=== PATIENT | male | born 1970 | race Caucasian/White ===

== ENCOUNTER → 2017-03-29 | Outpatient (CLI) | payer BC ==
[~2017-03-29] MED LIST: MULTTAB5 PO; OXYC1TAB3 PO; PRLSR20 PO; TRAM-10 PO
--- NOTE | 2017-03-29 07:23 | DIAGNOSTIC IMAGING REPORT ---
MRI OF THE LUMBAR SPINE WITHOUT CONTRAST CLINICAL HISTORY: Back pain with radiculopathy. COMPARISON STUDY: Lumbar spine MRI December 20, 2012. TECHNIQUE: Utilizing a 1.5 Fartun magnet and dedicated coil, multiplanar, multiecho imaging of the lumbar spine was performed without IV contrast. FINDINGS: For purposes of numbering on this exam, the L5-S1 disc space is assigned to axial image 23 of 25. Alignment of the lumbar spine is anatomic. Vertebral body heights are maintained. There is no suspicious marrow replacement. The conus terminates at the L1-L2 level. Paravertebral soft tissues are unremarkable. There is no intracanalicular mass or fluid collection. Fatty filum terminale is noted. Status post L5-S1 discectomy, posterior compression and bilateral pedicle screw fusion. L1-2: The central canal and neural foramen are patent. L2-3: The central canal and neural foramen are patent. L3-4: The central canal and neural foramen are patent. L4-5: There is disc desiccation. Disc space is preserved. There is a left paracentral disc protrusion with mild inferior subligamentous migration that results in moderate narrowing of the left lateral recess at this level. The central canal and neural foramen are patent. L5-S1: Central canal and neural foramen are patent. IMPRESSION: 1. Left paracentral disc protrusion at L4-L5 that results in moderate narrowing of the left lateral recess. This could be correlated with a left L5 radiculopathy. 2. Status post L5-S1 discectomy and bilateral pedicle screw fusion. 3. Patent central canal. Electronically signed by: Surinder Penny M.D. 03/29/2017 7:22 AM Dictated Date/Time: 03/29/2017 7:14 AM
== END | disposition home or self-care (01) ==
LOC: C.MRI 06:21
PROVIDERS: ATTEND Orthopaedic Surgery Orthopaedic Surgery of the Spine
DX: M51.26 Other intervertebral disc displacement, lumbar region (principal); Z98.1 Arthrodesis status

== ENCOUNTER 2017-06-16 09:15 | Emergency (ER) | payer BC ==
[2017-06-16 09:23] VITALS: TEMP 36.8
[2017-06-16] MEDS ORDERED: DEXAMETHASONE INJ 10 MG in SYRINGE 0 ML IV STA (09:47)
[2017-06-16] MEDS ORDERED: ONDANSETRON INJ 2 MG/ML 2 ML VIAL IV STA (09:47)
[2017-06-16] MEDS ORDERED: DEXAMETHASONE **PF** INJ 10 MG/ML VIAL ONE (10:00)
[2017-06-16] MEDS: MoRPHine SULFATE 4 MG/ML 1 ML CARP\\VIAL IV PRN ×2 (10:04→11:26)
[2017-06-16] MEDS ORDERED: CYCL10TA6 PO (10:09)
[2017-06-16] MEDS ORDERED: GABA-1220 PO (10:09)
[2017-06-16 10:14] LABS: BASO % 0.5 %; BASO ABS # 0.03 K/uL (0-0.2); EOS ABS # 0.23 K/uL (0-0.5); HEMATOCRIT 41.5 % (42-52); HEMOGLOBIN 15.2 g/dL (14.0-18.0); IG# 0.01 K/uL (0.00-0.02); LYMPH % 40.2 %; LYMPH ABS # 2.29 K/uL (1.2-3.4); MEAN CELL VOLUME 87.6 fL (80-100); MEAN CORPUSCULAR HEMOGLOBIN 32.1 pg (25-34); MEAN CORPUSCULAR HGB CONC 36.6 g/dl (32-36); MEAN PLATELET VOLUME 9.4 fL (7.4-10.4); MONO % 7.2 %; MONO ABS # 0.41 K/uL (0.11-0.59); NEUT % 47.9 %; NEUT ABS # 2.73 K/uL (1.4-6.5); PLATELET COUNT 163 K/uL (130-400); RED CELL DISTRIBUTION WIDTH CV 13.2 % (11.5-14.5); RED CELL DISTRIBUTION WIDTH SD 42.2 fL (36.4-46.3)
[2017-06-16 10:29] LABS: BLOOD UREA NITROGEN 17 mg/dl (7-18); CALCIUM 8.4 mg/dl (8.5-10.1); CARBON DIOXIDE 28 mmol/L (21-32); CREATININE 1.12 mg/dl (0.60-1.40); GLUCOSE 110 mg/dl (70-99); POTASSIUM 4.1 mmol/L (3.5-5.1); SODIUM 139 mmol/L (136-145)
--- NOTE | 2017-06-16 11:16 | EMERGENCY ROOM VISIT NOTE ---
History Report prepared by Valerie: An Sandoval Under the Supervision of: Dr. Guanako Aggarwal M.D. First contact with patient: 09:37 Chief Complaint: BACK PAIN Stated Complaint: BACK PAIN, SHOOTING PAIN DOWN LEFT LEG History of Present Illness The patient is a 46 year old male who presents to the Emergency Room with complaints of worsening back pain starting 7 months. The patient states that the pain started after having a long car ride, but he did not ever have an injury to it. He reports that imaging has been done on his spine and showed a herniated disc at L5 and degenerative disc disease. He states that his most recent imaging was an MRI done 3 months ago. The patient states that he has been following with Dr. Mead. He states that they have tried injections and physical therapy with no relief. He reports that he has been on Gabapentin and Cyclobenzaprine and neither have offered any relief. The patient states that the pain is on the left side of his back and down his left leg. He reports that his leg feels numb, weak, and tingly. He reports that intermittently it feels like a needle is being poked into different parts of his leg. He notes that he also feels like something is swollen behind his toes. The patient reports that it has been much worse this week. He states that he has missed two days of work. He reports that he has been having his dress him and help him get in/ out of the tub because he cannot on his own. He states that at 0400 this morning he had pain that was 10/10. He states that he took a muscle relaxer, Gabapentin, and 4 Ibuprofen. He states that his current pain is a 5/10 in severity. The patient states that he has an appointment on July [address] Mead to discuss other options, but he states that he cannot wait that long. The patient complains of pain when straining with one bowel movement. The patient denies taking any steroids and urinary symptoms. Source of History: patient Onset: 7 months ago Position: back Symptom Intensity: 5/10 Quality: other (radiating) Timing: worsening Associated Symptoms: + weakness, No urinary symptoms Note: The patient complains of left leg pain, numbness in his left leg, tingling in his left leg, something feeling swollen behind his toes, and pain when straining with a bowel movement. Review of Systems See HPI for pertinent positives & negatives. A total of 10 systems reviewed and were otherwise negative. Past Medical & Surgical Medical Problems: (1) Degenerative disc disease (2) Herniated disc Family History Cancer Diabetes mellitus FH: heart disease FHx: diabetes mellitus FHx: seizures Seizures Social History Smoking Status: Former Smoker Marital Status: Housing Status: lives with significant other Occupation Status: employed Current/Historical Medications Scheduled Cyclobenzaprine Hcl (Flexeril), 10 MG PO HS Gabapentin (Neurontin), 400 MG PO TID Methylprednisolone (Medrol Dosepak), 1 PKT PO UD Scheduled PRN Omeprazole (Prilosec), 20 MG PO DAILY PRN for Nausea Oxycodone Ir (Roxicodone Ir), 1-2 TAB PO Q4H PRN for Pain Allergies Coded Allergies: No Known Allergies (Verified , 06/16/17) Physical Exam Vital Signs Date Time Temp Pulse Resp B/P (MAP) Pulse Ox O2 Delivery O2 Flow Rate FiO2 06/16/17 12:16 85 18 145/93 96 Room Air 06/16/17 11:26 91 18 171/101 96 Room Air 06/16/17 09:23 36.8 90 20 179/116 98 Room Air Physical Exam GENERAL: Patient is in no acute distress. HEENT: No acute trauma, normocephalic atraumatic, mucous membranes moist, no nasal congestion, no scleral icterus. NECK: No stridor, no adenopathy, no meningismus, trachea is midline. LUNGS: Clear to auscultation bilaterally, no wheeze, no rhonchi, breath sounds equal. HEART: Without murmurs gallops or rubs, regular rate and rhythm. ABDOMEN: Soft, nontender, bowel sounds positive, no hernias, no peritonitis. EXTREMITIES: No cyanosis or edema, full range of motion of all the joints without pain or difficulty, no signs for acute trauma. NEUROLOGIC: Oriented x 3, no acute motor or sensory deficits, no focal weakness. At this time cannot elicit reflexes in either leg at the patella or Achilles. SKIN: No rash, no jaundice, no diaphoresis. Medical Decision & Procedures ER Provider Diagnostic Interpretation: Radiology results as stated below per my review and radiologist interpretation: MRI LUMBAR SPINE W/O CONTRAST CLINICAL HISTORY: Back pain with left leg radiculopathy. Numbness. History of prior surgery. TECHNIQUE: Sagittal and axial T1, T2 and STIR images were obtained. COMPARISON STUDY: March 29, 2017 OBSERVATIONS: The vertebral bodies and posterior elements appear intact. There is no abnormal bony signal present to suggest a marrow replacement process. L1-2: No disc protrusions or extrusions. No evidence of spinal canal or neural foraminal compromise. L2-3: No disc protrusions or extrusions. No evidence of spinal canal or neural foraminal compromise. L3-4: No disc protrusions or extrusions. No evidence of spinal canal or neural foraminal compromise. L4-5: There is a circumferential disc bulge and small left posterior lateral disc protrusion unchanged from the prior study. There is mild transverse spinal canal narrowing. There is no significant foraminal stenosis L5-S1: There are postsurgical changes of a discectomy and interbody fusion. There is posterior pedicle screw fixation with L5 and S1 pedicle screws. There are postlaminectomy changes. There is no recurrent herniation. There is no spinal or foraminal stenosis. The conus medullaris and cauda equina appear normal. IMPRESSION: 1. No significant change in the left posterior lateral disc protrusion at the L4-5 level. Disc material fills the left lateral recess, and may be impinging on the left L5 nerve root 2. Postsurgical changes of an L5-S1 discectomy and bilateral pedicle screw fusion Electronically signed by: Bryn Figueroa M.D. 06/16/2017 11:29 AM Dictated Date/Time: 06/16/2017 11:25 AM Laboratory Results 06/16/17 10:05 Red Blood Count 4.74, Mean Corpuscular Volume 87.6, Mean Corpuscular Hemoglobin 32.1, Mean Corpuscular Hemoglobin Concent 36.6, Mean Platelet Volume 9.4, Neutrophils (%) (Auto) 47.9, Lymphocytes (%) (Auto) 40.2, Monocytes (%) (Auto) 7.2, Eosinophils (%) (Auto) 4.0, Basophils (%) (Auto) 0.5, Neutrophils # (Auto) 2.73, Lymphocytes # (Auto) 2.29, Monocytes # (Auto) 0.41, Eosinophils # (Auto) 0.23, Basophils # (Auto) 0.03 06/16/17 10:05 Test 06/16/17 10:05 06/16/17 10:20 White Blood Count 5.70 K/uL (4.8-10.8) Red Blood Count 4.74 M/uL (4.7-6.1) Hemoglobin 15.2 g/dL (14.0-18.0) Hematocrit 41.5 % (42-52) Mean Corpuscular Volume 87.6 fL (80-100) Mean Corpuscular Hemoglobin 32.1 pg (25-34) Mean Corpuscular Hemoglobin Concent 36.6 g/dl (32-36) Platelet Count 163 K/uL (130-400) Mean Platelet Volume 9.4 fL (7.4-10.4) Neutrophils (%) (Auto) 47.9 % Lymphocytes (%) (Auto) 40.2 % Monocytes (%) (Auto) 7.2 % Eosinophils (%) (Auto) 4.0 % Basophils (%) (Auto) 0.5 % Neutrophils # (Auto) 2.73 K/uL (1.4-6.5) Lymphocytes # (Auto) 2.29 K/uL (1.2-3.4) Monocytes # (Auto) 0.41 K/uL (0.11-0.59) Eosinophils # (Auto) 0.23 K/uL (0-0.5) Basophils # (Auto) 0.03 K/uL (0-0.2) RDW Standard Deviation 42.2 fL (36.4-46.3) RDW Coefficient of Variation 13.2 % (11.5-14.5) Immature Granulocyte % (Auto) 0.2 % Immature Granulocyte # (Auto) 0.01 K/uL (0.00-0.02) Erythrocyte Sedimentation Rate 2 mm/hr (0-14) Anion Gap 4.0 mmol/L (3-11) Estimated GFR () 90.2 Estimated GFR (Non- 77.8 BUN/Creatinine Ratio 15.0 (10-20) Calcium Level 8.4 mg/dl (8.5-10.1) C-Reactive Protein < 0.29 mg/dl (0-0.29) Urine Color YELLOW Urine Appearance CLEAR (CLEAR) Urine pH 6.5 (4.5-7.5) Urine Specific Story 1.013 (1.000-1.030) Urine Protein NEG (NEG) Urine Glucose (UA) NEG (NEG) Urine Ketones NEG (NEG) Urine Occult Blood NEG (NEG) Urine Nitrite NEG (NEG) Urine Bilirubin NEG (NEG) Urine Urobilinogen NEG (NEG) Urine Leukocyte Esterase NEG (NEG) Laboratory results reviewed by me. Medications Administered Medications (Trade) Dose Ordered Sig/Silverio Route Start Time Stop Time Status Last Admin Dose Admin Morphine Sulfate (MoRPHine SULFATE INJ) 4 mg Q15M PRN IV 06/16/17 10:00 06/16/17 12:55 DC 06/16/17 11:26 4 MG Ondansetron HCl (Zofran Inj) 4 mg NOW STAT IV 06/16/17 09:47 06/16/17 09:51 DC 06/16/17 10:04 4 MG Dexamethasone Sodium Phosphate (Dexamethasone Inj Pf) 10 mg STK-MED ONCE .ROUTE 06/16/17 10:00 06/16/17 10:01 DC 06/16/17 10:05 10 MG ED Course 0938: The patient was evaluated in room B11A. A complete history and physical exam was performed. 0944: I discussed the patient's case with Dr. Matias Fong. He would like the patient to have another MRI to compare to the one in March. 0947: Ordered Zofran Inj 4 mg IV, Dexamethasone Sodium Phosphate 10 mg/Syringe 2.5 ml @ 1 mls/min IV. 1000: Ordered Morphine Sulfate 4 mg PRN IV pain. 1133: At this time I had Dr. Matias Fong paged since the patient's MRI was done. 1158: I discussed the patient's case with Dr. Abebe again. He states that the patient is good to go home and he will follow up with him on Monday to possibly schedule his surgery sooner. He states to discharge the patient on Medrol and Oxycodone. 1210: I reevaluated the patient. Discussed results and discharge instructions: He verbalized understanding and agreement. The patient is ready for discharge. Medical Decision Differential diagnoses include herniated disc, infection, abscess, nerve impingement, sciatica, lumbar fracture, failed outpatient treatment. There is no leukocytosis or concerning anemia. No significant electrolyte abnormality or kidney failure. Sed rate and CRP are not elevated. Urinalysis does not show infection. Lumbar MRI shows the same disc herniation on the left as was noted before, no infection or fracture. The patient received IV morphine and IV Zofran, he was given IV Decadron. The patient is feeling improved. He was seen in this ED by Dr. Mead of spine surgery. The patient will be discharged with outpatient follow-up in a few days. He will likely undergo surgery. The patient will be discharged on a Medrol Dosepak, oxycodone for severe pain. If worsening, he can return. [place] Drug Monitoring Program Search Results: no issues identified Medication Reconcilliation Current Medication List: was personally reviewed by me Blood Pressure Screening Patient's blood pressure: Elevated blood pressure Blood pressure disposition: Referred to PCP Consults Time Called: 941 Consulting Physician: Dr. Matias Fong Returned Call: [phone] I discussed the patient's case with Dr. Matias Fong. He would like the patient to have another MRI to compare to the one in March. Additional Consults: Time Called: 1133 Consulted Physician: Dr. Abebe Returned Call: [phone] Additional Comments: I discussed the patient's case with Dr. Abebe again. He states that the patient is good to go home and he will follow up with him on Monday to possibly schedule his surgery sooner. He states to discharge the patient on Decadron and Oxycodone. Impression Primary Impression: Herniated disc Additional Impressions: Lower back pain Sciatica Scribe Attestation The scribe's documentation has been prepared under my direction and personally reviewed by me in its entirety. I confirm that the note above accurately reflects all work, treatment, procedures, and medical decision making performed by me. Departure Information Dispostion Home / Self-Care Prescriptions Oxycodone Ir (Roxicodone Ir) 5 Mg Tab 1-2 TAB PO Q4H Y for Pain, #12 TAB Prov: Guanako Aggarwal M.D. 06/16/17 Methylprednisolone (MEDROL DOSEPAK) 4 Mg Javier 1 PKT PO UD for 6 Days, #1 PKT Prov: Guanako Aggarwal M.D. 06/16/17 Referrals No Doctor, Assigned (PCP) Forms HOME CARE DOCUMENTATION FORM, IMPORTANT VISIT INFORMATION Patient Instructions My [facility] Additional Instructions medrol dose pack as directed--start tomorrow continue the other meds as before may use oxy ir 1-2 tab every 4 hours for severe pain see Dr. Mead as scheduled return for fever or uncontolled pain or worsening symptoms Problem Qualifiers
--- NOTE | 2017-06-16 11:30 | DIAGNOSTIC IMAGING REPORT ---
MRI LUMBAR SPINE W/O CONTRAST CLINICAL HISTORY: Back pain with left leg radiculopathy. Numbness. History of prior surgery. TECHNIQUE: Sagittal and axial T1, T2 and STIR images were obtained. COMPARISON STUDY: March 29, 2017 OBSERVATIONS: The vertebral bodies and posterior elements appear intact. There is no abnormal bony signal present to suggest a marrow replacement process. L1-2: No disc protrusions or extrusions. No evidence of spinal canal or neural foraminal compromise. L2-3: No disc protrusions or extrusions. No evidence of spinal canal or neural foraminal compromise. L3-4: No disc protrusions or extrusions. No evidence of spinal canal or neural foraminal compromise. L4-5: There is a circumferential disc bulge and small left posterior lateral disc protrusion unchanged from the prior study. There is mild transverse spinal canal narrowing. There is no significant foraminal stenosis L5-S1: There are postsurgical changes of a discectomy and interbody fusion. There is posterior pedicle screw fixation with L5 and S1 pedicle screws. There are postlaminectomy changes. There is no recurrent herniation. There is no spinal or foraminal stenosis. The conus medullaris and cauda equina appear normal. IMPRESSION: 1. No significant change in the left posterior lateral disc protrusion at the L4-5 level. Disc material fills the left lateral recess, and may be impinging on the left L5 nerve root 2. Postsurgical changes of an L5-S1 discectomy and bilateral pedicle screw fusion Electronically signed by: Bryn Figueroa M.D. 06/16/2017 11:29 AM Dictated Date/Time: 06/16/2017 11:25 AM
[2017-06-16 12:16] VITALS: BP 145/93; PULSE 85; O2SAT 96
[2017-06-16] MEDS ORDERED: OXYC1TAB3 PO (12:16)
[2017-06-16] MEDS ORDERED: METH4PAK PO (12:16)
== END 2017-06-16 12:51 | disposition home or self-care (01) ==
LOC: C.EDB 09:16
DX: M51.16 Intervertebral disc disorders with radiculopathy, lumbar region (principal); R03.0 Elevated blood-pressure reading, without diagnosis of hypertension; Z79.899 Other long term (current) drug therapy; Z87.891 Personal history of nicotine dependence

== ENCOUNTER 2017-06-22 09:25 | Inpatient (IN) | payer BC ==
--- NOTE | 2017-06-19 15:56 | DIAGNOSTIC IMAGING REPORT ---
CHEST 2 VIEWS ROUTINE CLINICAL HISTORY: Preoperative evaluation. Lumbar spinal stenosis. COMPARISON STUDY: Chest radiograph January 16, 2013. FINDINGS: Lung volumes are normal. No pneumothorax or pleural effusion is noted. There is no consolidation or evidence for pulmonary edema. Cardiomediastinal silhouette is normal. Pulmonary vascularity is normal. Appearance of the chest is unchanged. IMPRESSION: No acute cardiopulmonary findings. Electronically signed by: Surinder Penny M.D. 06/19/2017 3:54 PM Dictated Date/Time: 06/19/2017 3:53 PM
[2017-06-19 16:43] LABS: BASO % 0.2 %; BASO ABS # 0.02 K/uL (0-0.2); EOS % 0.3 %; EOS ABS # 0.04 K/uL (0-0.5); HEMATOCRIT 43.4 % (42-52); HEMOGLOBIN 16.1 g/dL (14.0-18.0); IG# 0.11 K/uL (0.00-0.02); LYMPH % 21.5 %; LYMPH ABS # 2.54 K/uL (1.2-3.4); MEAN CELL VOLUME 88.2 fL (80-100); MEAN CORPUSCULAR HEMOGLOBIN 32.7 pg (25-34); MEAN CORPUSCULAR HGB CONC 37.1 g/dl (32-36); MEAN PLATELET VOLUME 9.6 fL (7.4-10.4); MONO % 8.9 %; MONO ABS # 1.05 K/uL (0.11-0.59); NEUT % 68.2 %; NEUT ABS # 8.03 K/uL (1.4-6.5); PLATELET COUNT 215 K/uL (130-400); RED CELL DISTRIBUTION WIDTH CV 13.4 % (11.5-14.5); RED CELL DISTRIBUTION WIDTH SD 43.3 fL (36.4-46.3); WHITE BLOOD COUNT 11.79 K/uL (4.8-10.8)
[2017-06-19 17:13] LABS: BLOOD UREA NITROGEN 22 mg/dl (7-18); CALCIUM 8.7 mg/dl (8.5-10.1); CARBON DIOXIDE 28 mmol/L (21-32); CREATININE 1.25 mg/dl (0.60-1.40); GLUCOSE 116 mg/dl (70-99); POTASSIUM 3.8 mmol/L (3.5-5.1); SODIUM 138 mmol/L (136-145)
[2017-06-20 11:08] VITALS: BMI 34.0
[2017-06-22] VITALS (9 sets, daily range): BP systolic 132–176; BP diastolic 77–114; PULSE 76–91; TEMP 36.3–36.8; O2SAT 92–99; Ht 175.3 cm; Wt 104.0 kg
[~2017-06-22] VITALS: Ht 175.3 cm; Wt 104.0 kg
[~2017-06-22 09:25] MED LIST changes: +ACETAMINOPHEN 500 MG TAB PO SCH; +CEFAZOLIN 2000MG IV PUSH 15 ML IV SCH; +CYCL10TA6 PO; +CeleBREX 200 MG CAP PO SCH; +DEXAMETHASONE 4 MG TAB PO SCH; +GABA-1220 PO; +GABAPENTIN 900 MG PO SCH; +IBUP-1050 PO; +LACTATED RINGER'S 1000ML 1,000 ML IV SCH; +METH4PAK PO; -MULTTAB5 PO; -PRLSR20 PO; -TRAM-10 PO
[2017-06-22] MEDS ORDERED: MoRPHine SULFATE 10 MG/ML CARP/VIAL IV PRN (10:15)
[2017-06-22] MEDS ORDERED: ATROPINE SULFATE 0.1 MG/ML 5ML SYR IV PRN (10:15)
[2017-06-22] MEDS ORDERED: EpHEDrine SULFATE INJ 50 MG/ML AMP IV PRN (10:15)
[2017-06-22] MEDS ORDERED: ONDANSETRON INJ 2 MG/ML 2 ML VIAL IV PRN ×2 (10:15→13:15)
--- NOTE | 2017-06-22 10:33 | History & Physical Bridge Note ---
H&P Re-Evaluation Bridge Note: I have examined the patient, reviewed the History & Physical and in the interval since the performance of the History & Physical I have noted the following changes of clinical significance: No changes noted
[2017-06-22] MEDS ORDERED: FENTANYL CITRATE INJ 50 MCG/1 ML 2 ML VIAL ONE ×3 (10:35→11:38)
[2017-06-22] MEDS ORDERED: MIDAZOLAM HCL 1 MG/ML 2ML VIAL ONE (10:35)
--- NOTE | 2017-06-22 10:36 | History and Physical ---
History & Physical Date June 22, 2017. Chief Complaint Back and left leg pain History of Present Illness The patient is a 46 year old male with complaints of back and left leg pain Past Medical/Surgical History Medical Problems: (1) Degenerative disc disease (2) Herniated disc Additional History Hepatic Disease: No Endocrine Disorder: No Kidney Disease: No Hypertension: No Heart Disease: No Bleeding Tendencies: No Infectious Diseases: No Allergies Coded Allergies: No Known Allergies (Verified , 06/22/17) Home Medications Scheduled Cyclobenzaprine Hcl (Flexeril), 10 MG PO HS Gabapentin (Neurontin), 400 MG PO TID Methylprednisolone (Medrol Dosepak), 1 PKT PO UD Scheduled PRN Ibuprofen (Advil), 800 MG PO Q6H PRN for Pain Oxycodone Ir (Roxicodone Ir), 1-2 TAB PO Q4H PRN for Pain Physical Examination Skin: warm/dry, no rash Eyes: normal inspection, EOMI, sclerae normal ENT: normal ENT inspection, pharynx normal Head: normocephalic, atraumatic Neck: supple, no adenopathy, trachea midline Respiratory/Chest: lungs clear, normal breath sounds, no respiratory distress Cardiovascular: regular rate, rhythm, no edema, no murmur Abdomen / GI: normal bowel sounds, non tender Back: normal inspection Extremities: normal inspection, normal range of motion Neurologic/Psych: no motor/sensory deficits, alert, normal reflexes, oriented x 3 Diagnosis Spinal stenosis herniated disc pulposus L4-5 Plan of Treatment Removal of instrumentation L5-S1 decompression and fusion L4-5
[2017-06-22] MEDS ORDERED: HYDROmorphone INJ 2 MG/ML SYR/VIAL ONE (11:00)
[2017-06-22] MEDS ORDERED: EpINEphrine INJ 1MG/ML AMP 1 MG/ML AMP ONE (11:02)
[2017-06-22] MEDS ORDERED: BUPIVACAINE 0.5 % 5 MG/1 ML MPF 30ML VIAL ONE (11:02)
[2017-06-22] MEDS ORDERED: BACITRACIN 50000 UNIT VIAL ONE (11:02)
[2017-06-22] MEDS ORDERED: FLOSEAL HEMOSTATIC MATRIX 10ML TOP ONE (13:00)
--- NOTE | 2017-06-22 13:00 | [facility] Operative Report ---
Operative Report Operative Date June 22, 2017. Pre-Operative Diagnosis Spinal stenosis, herniated disc pulposus L4-5 Post-Operative Diagnosis Spinal stenosis, herniated disc pulposus L4-5 Procedure(s) Performed 1. Removal of instrumentation L5-S1. #2 exploration of fusion L5-S1. #3 decompression medial facetectomies foraminotomies L4-5. #4 posterior spinal fusion L4-5. #5 placement posterior instrumentation L4-5. #6 interbody fusion L4-5. #7 placement of titanium 11 x 26 mm cage L4-5. # 8 placement of locally harvested morselized autograft in the posterior lateral gutters. #9 placement of infuse collagen sponge, mass graft in the posterior gutters and ostial amp in the interbody space. Surgeon Dr. Mead Software Controls Engineer Surgeon(s) Malu Glynn PA-C Estimated Blood Loss 100 ml Findings Severe spinal stenosis with herniated nucleus pulposus Specimens Permanent Specimen: A: Explanted Lumbar Hardware Anesthesia Type General Description of Procedure Patient was met with preoperatively case discussed all questions addressed. After informed consent obtained patient was taken to the operative suite underwent intubation and placed in the prone position on the Marcus table on top of the Bharat frame. All bony prominences well-padded eyes inspected to ensure no external pressure placed upon the. This point the lumbar spine was prepped and draped in normal sterile fashion. Sharp dissection with the assistance Bovie cautery was performed down to and exposing the lamina and transverse process of L4 and instrumentation L5-S1 levels bilaterally. Then proceeded remove the hardware at L5-S1 Fusion mass noted to be intact. Then proceeded to perform a complete laminectomy of L4 addressing severe lateral recess and foraminal disease on the left as well as herniated nucleus pulposus. Pedicle screws and placed in L4-L5 bilaterally with the assistance of fluoroscopy and the purposes sabrina placed. Through a transforaminal approach and left complete discectomy was performed endplates created to subcortical bleeding bone and an 11 x 26 mm titanium cage filled with ostial amp bone graft tapped in position. Rods then compressed locked in final position bilaterally. The transverse processes of L4-L5 burred to subcortical bleeding bone. Infuse collagen sponge mesh graft and local autograft placed in the posterior gutters. 15 round KRISHNA drain inserted. Incision was then closed with 1 Vicryl fascia 2-0 Vicryl subtends a 4 Monocryl for fashion closure Steri-Strips sterile dressings placed. Patient will continue PACU stable condition. Please note Malu Martins present throughout the entire procedure involved in patient positioning complex portions of the surgery and fashion closure. I attest to the content of the Intraoperative Record and any orders documented therein. Any exceptions are noted below.
[2017-06-22] MEDS ORDERED: NEOSTIGMINE METHYLSULFATE 1 MG/ML 10ML VIAL ONE (13:01)
[2017-06-22] MEDS ORDERED: GLYCOPYRROLATE INJ 0.2 MG/ML VIAL ONE (13:01)
[2017-06-22] MEDS ORDERED: KETOROLAC TROMETHAMINE 30 MG/ML VIAL ONE (13:01)
[2017-06-22] MEDS ORDERED: LIDOCAINE HCL 2% 2 ML VIAL (20MG/ML) ONE (13:01)
[2017-06-22] MEDS ORDERED: ROCURONIUM BROMIDE 10 MG/ML 5 ML VIAL ONE (13:01)
[2017-06-22] MEDS ORDERED: EpHEDrine SULFATE 50MG/5ML SYR ONE (13:01)
[2017-06-22] MEDS ORDERED: PHENYLEPHRINE 100MCG/ML 5ML SYR ONE (13:01)
[2017-06-22] MEDS ORDERED: PROPOFOL IV EMULSION 10 MG/ML 20 ML VIAL ONE (13:01)
[2017-06-22] MEDS ORDERED: SODIUM CHLORIDE 0.9% 1000ML 1,000 ML IV SCH (13:01)
[2017-06-22] MEDS ORDERED: ONDANSETRON INJ 2 MG/ML 2 ML VIAL ONE (13:01)
[2017-06-22] MEDS ORDERED: DEXAMETHASONE SOD INJ 4 MG/ML VIAL ONE (13:01)
--- NOTE | 2017-06-22 13:08 | DIAGNOSTIC IMAGING REPORT ---
LUMBAR SPINE, INTRAOPERATIVE FLUOROSCOPY HISTORY: L4-L5 decompression and fusion. FLUOROSCOPY TIME: 11 seconds. FINDINGS: Intraoperative fluoroscopy was provided for the lumbar spine. 2 fluoroscopic spot images were obtained. Posterior decompression fusion at L4-5 with pedicle screws and rods. The hardware appears intact. IMPRESSION: Fluoroscopy provided for a L4-5 posterior decompression and fusion. Electronically signed by: Yusuf Duran M.D. 06/22/2017 1:07 PM Dictated Date/Time: 06/22/2017 1:06 PM
[2017-06-22] MEDS ORDERED: DO NOT ADMINISTER FLU VACCINE PRN (13:15)
[2017-06-22] MEDS ORDERED: LORAZEPAM 0.5 MG TAB PO PRN (13:15)
[2017-06-22] MEDS ORDERED: METOCLOPRAMIDE HCL INJ 5 MG/ML 2 ML VIAL IV PRN (13:15)
[2017-06-22] MEDS ORDERED: BISACODYL 10 MG SUPP PR PRN (13:15)
[2017-06-22] MEDS ORDERED: NALOXONE HCL 0.4 MG/1 ML VIAL/CARP IV PRN ×2 (13:15)
[2017-06-22] MEDS ORDERED: MAGNESIUM HYDROXIDE SUSP 30 ML UDC PO PRN (13:15)
[2017-06-22] MEDS ORDERED: ACETAMINOPHEN IV 100 ML IV PRN (13:15)
[2017-06-22] MEDS ORDERED: DO NOT ADMINISTER PNEUMOCOCCAL VACCINE PRN (13:15)
[2017-06-22] MEDS ORDERED: LORAZEPAM INJ 0.5 MG in SYRINGE 0 ML IV PRN (13:15)
[2017-06-22] MEDS ORDERED: SOD PHOSPHATE/SOD BIPHOSPHATE ENEMA 132 ML BTL PR PRN (13:15)
[2017-06-22] MEDS ORDERED: CEFAZOLIN IV 2,000 MG in DEXTROSE 5% 50ML 50 ML IV SCH (13:15)
[2017-06-22] MEDS ORDERED: PROMETHAZINE HCL INJ 12.5 MG in SODIUM CHLORIDE 0.9% 50ML 50 ML IV PRN (13:15)
[2017-06-22] MEDS ORDERED: ALUMINUM/MAGNESIUM SUSP 30 ML UDC PO PRN (13:15)
[2017-06-22] MEDS ORDERED: HYDROmorphone HCL 0.5MG/ML 50 ML CASSETTE IV PRN (13:15)
[2017-06-22] MEDS ORDERED: hydrOXYzine HCL 25 MG TAB PO PRN (13:15)
[2017-06-22] MEDS ORDERED: ACETAMINOPHEN 500 MG TAB PO PRN (13:15)
[2017-06-22] MEDS ORDERED: FAMOTIDINE 20 MG TAB PO PRN (13:15)
[2017-06-22] MEDS ORDERED: HYDROmorphone HCL 0.5MG/ML 50 ML CASSETTE ONE ×2 (13:31→13:37)
[2017-06-22] MEDS: FENTANYL CITRATE INJ 50 MCG/1 ML 2 ML VIAL IV PRN ×2 (13:54→14:02)
--- NOTE | 2017-06-22 14:21 | Anesthesiology Progress Note ---
Anesthesia Post Op Note Date & Time June 22, 2017 at 14:21 Vital Signs Pain Intensity: 3 Vital Signs Past 12 Hours Date Time Temp Pulse Resp B/P (MAP) Pulse Ox O2 Delivery O2 Flow Rate FiO2 06/22/17 14:10 36.2 83 16 144/78 95 Nasal Cannula 4 06/22/17 14:00 79 16 140/83 98 Nasal Cannula 4 06/22/17 13:50 80 16 150/88 94 Nasal Cannula 4 06/22/17 13:40 84 16 144/89 98 Oxymask 10 06/22/17 13:30 96 16 144/95 98 Oxymask 10 06/22/17 13:21 36.1 74 16 149/92 94 Oxymask 10 06/22/17 10:05 36.7 89 20 176/114 99 Room Air 161/109 Notes Mental Status: alert / awake / arousable, participated in evaluation Pt Amnestic to Procedure: Yes Nausea / Vomiting: adequately controlled Pain: adequately controlled Airway Patency, RR, SpO2: stable & adequate BP & HR: stable & adequate Hydration State: stable & adequate Anesthetic Complications: no major complications apparent
[2017-06-22] MEDS: SODIUM CHLORIDE 0.9% 1000ML 1,000 ML IV SCH ×2 (15:47→20:54)
[2017-06-22] MEDS: GABAPENTIN 400 MG CAP PO SCH ×2 (15:51→20:52)
[2017-06-22] MEDS: CEFAZOLIN IV 2,000 MG in SYRINGE 0 ML IV SCH (20:04)
[2017-06-22] MEDS: DOCUSATE SODIUM/SENNA 50/8.6MG TAB PO SCH (20:52)
[2017-06-23] MEDS: CEFAZOLIN IV 2,000 MG in SYRINGE 0 ML IV SCH (02:53)
[2017-06-23] MEDS: SODIUM CHLORIDE 0.9% 1000ML 1,000 ML IV SCH (02:56)
[2017-06-23 03:48] VITALS: BP 135/79; PULSE 82; TEMP 36.6; O2SAT 96
[2017-06-23 05:38] LABS: BASO % 0.1 %; BASO ABS # 0.01 K/uL (0-0.2); EOS % 0.9 %; EOS ABS # 0.11 K/uL (0-0.5); HEMOGLOBIN 13.1 g/dL (14.0-18.0); IG# 0.07 K/uL (0.00-0.02); LYMPH % 23.6 %; MEAN CELL VOLUME 89.8 fL (80-100); MEAN CORPUSCULAR HEMOGLOBIN 31.8 pg (25-34); MEAN CORPUSCULAR HGB CONC 35.4 g/dl (32-36); MEAN PLATELET VOLUME 8.9 fL (7.4-10.4); MONO % 8.9 %; MONO ABS # 1.06 K/uL (0.11-0.59); NEUT % 65.9 %; NEUT ABS # 7.83 K/uL (1.4-6.5); PLATELET COUNT 158 K/uL (130-400); RED CELL DISTRIBUTION WIDTH CV 13.8 % (11.5-14.5); WHITE BLOOD COUNT 11.88 K/uL (4.8-10.8)
[2017-06-23 05:57] LABS: CALCIUM 7.8 mg/dl (8.5-10.1); CREATININE 1.07 mg/dl (0.60-1.40); POTASSIUM 4.1 mmol/L (3.5-5.1)
[2017-06-23] MEDS ORDERED: HYDROmorphone INJ 0.5 MG/0.5 ML SYR IV PRN (06:00)
[2017-06-23] MEDS ORDERED: DC PCA ONE (06:00)
[2017-06-23] MEDS ORDERED: NURSING VERBAL MED ORDER ONE ×3 (06:15→13:15)
[2017-06-23 07:02] VITALS: BP 144/83; PULSE 77; TEMP 36.7; O2SAT 96
--- NOTE | 2017-06-23 07:56 | Anesthesiology Progress Note ---
Anesthesia Post Op Note Date & Time June 23, 2017 at 07:56 Vital Signs Pain Intensity: 5.0 Vital Signs Past 12 Hours Date Time Temp Pulse Resp B/P (MAP) Pulse Ox O2 Delivery O2 Flow Rate FiO2 06/23/17 07:02 36.7 77 16 144/83 (103) 96 Room Air 06/23/17 03:48 36.6 82 14 135/79 (97) 96 Room Air 06/22/17 23:25 Room Air 06/22/17 23:24 36.4 85 16 132/77 (95) 95 Room Air Notes Mental Status: alert / awake / arousable, participated in evaluation Pt Amnestic to Procedure: Yes Nausea / Vomiting: adequately controlled Pain: adequately controlled Airway Patency, RR, SpO2: stable & adequate BP & HR: stable & adequate Hydration State: stable & adequate Anesthetic Complications: no major complications apparent
[2017-06-23] MEDS: OXYCODONE HCL IR 5 MG TAB (IMMEDIATE RELEASE) PO PRN ×3 (08:01→22:26)
[2017-06-23] MEDS: GABAPENTIN 400 MG CAP PO SCH ×3 (08:37→21:02)
[2017-06-23] MEDS: KETOROLAC TROMETHAMINE 30 MG/ML VIAL IV. PRN ×3 (10:44→23:04)
[2017-06-23 11:28] VITALS: BP 149/87; PULSE 84; TEMP 37.1; O2SAT 96
--- NOTE | 2017-06-23 14:27 | Progress Note ---
Progress Note Date of Service June 23, 2017. Progress Note Back pain is controlled left leg pain markedly improved. Vital signs stable. On exam he is in the chair at bedside has good strength testing. Assessment status post lumbar depression fusion per plan at this time and continue physical therapy anticipate discharge home this weekend.
[2017-06-23] MEDS ORDERED: RXC5 PO (14:31)
--- NOTE | 2017-06-23 14:32 | Discharge Instructions ---
Discharge Instructions Date of Service June 23, 2017. Admission Reason for Admission: Lumbar Spinal Stenosis Discharge Discharge Diagnosis / Problem: lumbar stenosis Discharge Goals Goal(s): Improve function Activity Recommendations Activity Limitations: per Instructions/Follow-up section . Instructions / Follow-Up Instructions / Follow-Up ACTIVITY RECOMMENDATIONS: SELF CARE INSTRUCTIONS AFTER THORACIC/LUMBAR FUSIONS 1. You may walk to your tolerance. It is good exercise for your legs and back. Expect some back and intermittent leg aches and pains. 2. You may perform "counter-top" level activities (make a sandwich, coreen with a project, etc.). 3. No bending or lifting of more than 10 pounds or back twisting of any nature (roll like a log when turning in bed). 4. You may ride in a car for 20-30 minutes at a time. No driving until after your first visit with your doctor. 5. Frequent changes of position and restricting sitting to 30 minutes at a time will help limit the amount of back spasms and stiffness you may experience. 6. You may discontinue the use of ambulatory aids (cane, crutches, etc.) once your strength and confidence allow. 7. You may oncology admin the shower and let water strike your incision when you arrive home at least once daily. Do not take a tub bath, sit in a hot tub or go into a swimming pool until after your first recheck in the office. SPECIAL CARE INSTRUCTIONS: VERY IMPORTANT TO READ AND REVIEW A. Your surgical incision has been closed with a cosmetic suture under the skin that will dissolve in about 6 weeks. In 14 days, you can use a pair of clean scissors and cut the suture that is left outside of the skin at the ends of your incision. 1. The small skin tapes can be removed 7 days after surgery if they have not fallen off by that point. 2. You may keep the wound open to air as much as possible to promote healing after post-op day number 5 unless told otherwise by your doctor. 3. If you think the wound looks like it is becoming infected (redness or worsening drainage) and/or you are experiencing fever, chill or worsening back pain and muscle spasms, contact the office so that we may evaluate you as soon as possible. B. Complications are uncommon, but please contact us if you have any signs or symptoms of: 1. wound infection (fever higher than 102.5 degrees F, redness, separation of wound, drainage, or increasing pain from the incision) 2. blood clots in legs (pain, swelling, redness and warmth in legs) 3. urinary tract infection (fever higher than 102.5 degrees F, burning upon urination or increased frequency of urination) 4. nerve problems (inability to walk on your toes or heels, numbness, loss of bowel or bladder control) 5. any other symptoms that concern you C. Please call the office at if you have any concerns or questions about your operation or recovery. D. No smoking! Smoking drastically decreases the chance of a solid fusion. E. Do not take any anti-inflammatory medications (Indocin, Advil, Motrin, Aspirin, Naprosyn, etc.) as these may inhibit the chance of a solid fusion. Tylenol is okay to take for pain. MANAGING PAIN AFTER SPINAL SURGERY 1. Narcotic medication is intended for short-term use and will be provided for surgical pain. Surgical pain usually lasts for a period of 4-6 weeks. Narcotic medication includes Percocet, Vicodin, Darvocet, Tylenol #3 or Lortab. 2. Longer-term pain is more appropriately treated with non-narcotic medication such as Tylenol ES. 3. Muscle spasm is not appropriately treated with narcotics. Muscle relaxers such as Soma, Flexeril or Skelaxin can be used along with Tylenol ES. 4. Remember that we all live with some "aches and pains". This is not unusual or uncommon after an injury or as we get older. a. Back pain is expected and may include muscle spasms for 4 to 6 weeks after surgery. The pain should gradually improve. If the pain worsens for no apparent reason, please contact the office. b. Intermittent leg pain may also be experienced and should not be concerned about unless it worsens for no apparent reason. If so, please contact the office. 5. We will provide appropriate medication within the normal guidelines of their prescribed use. We will also be very cautious and aware of potential abuse and extended duration of patients' medication needs. a. Pain medications are for your comfort and to assist with sleep and rest so that the tissue can heal. They are not provided in order to return to normal activity and should not be used through the day. To do so or worsening pain at night can result from ongoing tissue damage and development of tolerance to the prescribed medicine. 6. Please allow 2-3 days to process refills. Prescriptions will not be mailed but must be picked up at the office. FOLLOW UP VISIT: Keep your scheduled follow-up appointment. Any questions, please call the office at . Current Hospital Diet Patient's current hospital diet: Regular Diet Discharge Diet Recommended Diet: Regular Diet Procedures Procedures Performed: 1. Removal of instrumentation L5-S1. #2 exploration of fusion L5-S1. #3 decompression medial facetectomies foraminotomies L4-5. #4 posterior spinal fusion L4-5. #5 placement posterior instrumentation L4-5. #6 interbody fusion L4-5. #7 placement of titanium 11 x 26 mm cage L4-5. # 8 placement of locally harvested morselized autograft in the posterior lateral gutters. #9 placement of infuse collagen sponge, mass graft in the posterior gutters and ostial amp in the interbody space. Pending Studies Studies pending at discharge: no Medical Emergencies . Who to Call and When: Medical Emergencies: If at any time you feel your situation is an emergency, please call 911 immediately. . Non-Emergent Contact Non-Emergency issues call your: Primary Care Provider . "Provider Documentation" section prepared by Victorino Mead. .
[2017-06-23 15:29] VITALS: BP 144/85; PULSE 83; TEMP 36.6; O2SAT 95
[2017-06-23] MEDS: DOCUSATE SODIUM/SENNA 50/8.6MG TAB PO SCH (21:00)
[2017-06-23 22:54] VITALS: BP 159/92; PULSE 84; TEMP 36.8; O2SAT 97
[2017-06-24] MEDS: KETOROLAC TROMETHAMINE 30 MG/ML VIAL IV. PRN ×2 (05:10→10:58)
[2017-06-24] MEDS ORDERED: POLYETHYLENE (MIRALAX) 17 GM PACK PO SCH (06:00)
[2017-06-24 06:01] VITALS: BP 151/91; PULSE 84; TEMP 36.7; O2SAT 96
[2017-06-24] MEDS: OXYCODONE HCL IR 5 MG TAB (IMMEDIATE RELEASE) PO PRN ×2 (07:58→10:46)
[2017-06-24] MEDS: GABAPENTIN 400 MG CAP PO SCH (07:58)
[2017-06-24 10:37] VITALS: BP 151/91; PULSE 84; TEMP 36.7; O2SAT 96
--- NOTE | 2017-06-24 11:07 | Discharge Summary ---
Orthopedic Discharge Summary Admission Date/Reason June 22, 2017 at 13:04 Lumbar Spinal Stenosis. Discharge Date/Disposition June 24, 2017 Home Diagnosis Principal Diagnosis: Lumbar spinal stenosis Admission Physical Exam As per Admitting History & Physical. Hospital Course Patient underwent lumbar depression fusion tolerated as well as taken to the orthopedic floor postoperatively. Postop day #1 he is up and amatory progressive postop day #2. KRISHNA drain decreased appropriately. Subsequently was discharged home. Discharge orders and instructions found in the chart for further review. Discharge Instructions Please refer to the electronic Patient Visit Report (Discharge Instructions) for additional information.
== END 2017-06-24 11:31 | disposition home or self-care (01) | DRG 455 ==
LOC: C.ACU 09:25 → C.3E 13:04 → ENRESERV 14:06
PROVIDERS: ADMIT Orthopaedic Surgery Orthopaedic Surgery of the Spine; ATTEND Orthopaedic Surgery Orthopaedic Surgery of the Spine
PROC: 0ST20ZZ Resection of Lumbar Vertebral Disc, Open Approach (ICD-10-PCS; principal; 2017-06-22 11:45)
PROC: 0SG00AJ Fusion of Lumbar Vertebral Joint with Interbody Fusion Device, Posterior Approach, Anterior Column, Open Approach (ICD-10-PCS; principal; 2017-06-22 11:45)
PROC: 0SP304Z Removal of Internal Fixation Device from Lumbosacral Joint, Open Approach (ICD-10-PCS; principal; 2017-06-22 11:45)
PROC: 0SG0071 Fusion of Lumbar Vertebral Joint with Autologous Tissue Substitute, Posterior Approach, Posterior Column, Open Approach (ICD-10-PCS; principal; 2017-06-22 11:45)
DX: M48.061 Spinal stenosis, lumbar region without neurogenic claudication (principal); M51.26 Other intervertebral disc displacement, lumbar region; K21.9 Gastro-esophageal reflux disease without esophagitis; E66.9 Obesity, unspecified; Z68.34 Body mass index [BMI] 34.0-34.9, adult; Z79.899 Other long term (current) drug therapy; Z98.1 Arthrodesis status; Z98.890 Other specified postprocedural states

== ENCOUNTER 2023-02-01 07:51 | Inpatient (IN) ==
[2023-02-01] MEDS ORDERED: SODIUM CHLORIDE 0.9% 500 ML IV STA (08:12)
--- OUTSIDE RECORDS SUMMARY | 2023-02-01 08:12 | External Medical Summary | Summary of Care ---
Author Name Unknown Organization [facility] Address [address] [place] [address] Phone [phone] Care Team Providers Care Channel Man Name Role Phone Edgardo Ramirez MD Primary Care P rovider Reason for Visit * Reason Onset Date Comments MyCode Consent 12/01/2022 Encounter Details Date Type Department Care Team (Late st Contact Info) Description 12/01/2022 Orders Only Outcomes Research Department [address] [place] [address] Helene Snell CHRA MyCode Research Other*[id number]* Allergies No known active allergiesdocumented as of this encounter (statuses as of 12/01/2022) Medications Medication Sig Dispensed Refills Start Date End Date Status Nitroglycerin 0.4 MG Sublingual Tablet Sublingual (Nitrostat)Indicatio ns:Angina of effort Place under the tongue 1 Tablet every 5 minutes as needed for Pain, Chest. up to 3 doses in 15 minutes 25 Tablet 11 06/07/2021 Active glipiZIDE ER 5 MG Oral Tablet Extended Release 24 Hour (glipiZIDE XL) Take 2 Tablets by mouth in the morning. 180 Tablet 3 03/04/2022 Active metFORMIN HCl ER 500 MG Oral Tablet Extended Release 24 Hour (Glucophage XR)Indications:Refer red for medication therapy management Take 2 Tablets by mouth daily. 180 Tablet 1 03/14/2022 Active StatSims.comStyle Faina 2 [place] DeviceIndications:Ty pe 2 diabetes mellitus with hyperglycemia, without long-term current use of insulin (HCC) USE DIRECTED. USE TO MONITOR BLOOD GLUCOSE DAILY 2 Each 5 04/13/2022 Active Omeprazole 20 MG Oral Capsule Delayed Release (PriLOSEC)Indication s:Gastroesophageal reflux disease without esophagitis,High triglycerides Take 1 Capsule by mouth in the morning. 90 Capsule 3 05/12/2022 Active Fexofenadine HCl 180 MG Oral Tablet (Jodie)Indications :Environmental and seasonal allergies Take 1 Tablet by mouth daily as needed for Allergies. 30 Tablet 11 06/02/2022 Active Aspirin Low Dose 81 MG Oral Tablet Chewable (aspirin)Indications :Angina of effort TAKE 1 TABLET BY MOUTH EVERY DAY IN THE MORNING 34 Tablet 11 06/24/2022 Active Isosorbide Mononitrate ER 30 MG Oral Tablet Extended Release 24 Hour (Imdur)Indications:A therosclerotic heart disease of [place] coronary artery without angina pectoris TAKE 1 TABLET BY MOUTH EVERY DAY IN THE MORNING 90 Tablet 3 07/07/2022 Active Rosuvastatin Calcium 40 MG Oral Tablet (Crestor)Indications :Atherosclerotic heart disease of [place] coronary artery without angina pectoris TAKE 1 TABLET IN THE MORNING. 90 Tablet 3 08/10/2022 Active Lisinopril 10 MG Oral Tablet (Prinivil)Indication s:Hypertension goal BP (blood pressure) < 140/90 TAKE 1 TABLET BY MOUTH EVERY DAY IN THE MORNING 90 Tablet 3 08/24/2022 Active Fenofibrate 145 MG Oral Tablet (Tricor)Indications: Mixed dyslipidemia TAKE 1 TABLET BY MOUTH EVERY DAY 30 Tablet 08/25/2022 Active Triamcinolone Acetonide 0.1 % External Cream (Aristocort) Apply topically to affected area 2 times a day. To affected area. 45 g 0 09/10/2022 Active Trulicity 4.5 MG/0.5ML Subcutaneous Solution Pen-injector (Dulaglutide)Indicat ions:Type 2 diabetes mellitus with hyperglycemia, without long-term current use of insulin (HCC) Inject 4.5 mg under the skin once a week. DX E11.9 - Medication was sent last month for a 90 day supply with 3 refills, please delete this refill if previous was already received - thank you 6 mL 3 10/25/2022 Active FreeStyle Faina 3 SensorIndications:Ty pe 2 diabetes mellitus with hyperglycemia, without long-term current use of insulin (HCC) Use as directed. 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 03/04/2022 Enlarged tonsils 08/27/2021 Snoring 08/27/2021 Hx of CABG 07/21/2021 Needle phobia 07/21/2021 Coronary atherosclerosis of [place] coronary david ry 06/29/2021 Hypertension goal BP (blood pressure) < 140/90 0 03/03/2021 Type 2 diabetes mellitus wit h hyperglycemia, without long-term current use of insulin 08/24/2020 Dyslipidemia, goal LDL below 70 08/24/2020 Flat foot 08/24/2020 Chronic low back pain with left-sided sciatica 0 05/30/2017 Lumbar radiculopathy 05/30/2017 Gastroesophageal reflux disease without esophagi tis 05/25/2016 documented as of this encounter (statuses as of 12/01/2022) Resolved Problems Problem Noted Date Diagnosed Date Resolved Date Prediabetes 03/21/2017 05/30/2017 Overview: Per Prediabetes protocol #1 Obesity, Class I, BMI 30.0-3 4.9 (see actual BMI) 03/21/2012 05/30/2017 Esophageal reflux 01/05/2010 05/25/2016 Morbid obesity, BMI not known 01/19/2006 01/19/2006 documented as of this encounter (statuses as of 12/01/2022) Immunizations Name Administration Dates Next Due COVID-19 mRNA, LNP-s, No Pre serve, 2-Dose Series ([employer]) 12/19/2020 Pneumococcal Conjugate Vaccine, 20-valent (Prevn ar20) 07/21/2021 SEASONAL INFLUENZA, PF, 6 M & Above, IM , (FLULAVAL or FLUZONE) 11/30/2021 TDAP (age 10 and older)(Boostrix) 06/02/2022 Zoster Vaccine Recombinant (Shingrix) 06/02/2022 ,03/04/2022 documented as of this encounter Social History Tobacco Use Types Packs/Day Years Used Date Smoking Tobacco: Former Cigarettes 0.5 20 Q uit: 06/02/2021 Smokeless Tobacco: Never Alcohol Use Standard Drinks/Week Comments Yes 1 (1 standard drink = 0.6 oz pur e alcohol) 4 time month PHQ-2 Answer Date Recorded PHQ Adult Total Score 0 03/04/2022 Hunger Vital Sign Answer Date Recorded Within the past 12 months, y ou worried that your food would run out before you got the money to buy more. Never true 08/25/19 21 Within the past 12 months, t he food you bought just didn't last and you didn't have money to get more. Never true 08/24/2020 Sex and Gender Information Value Date Recorded Sex Assigned at Male 02/17/2020 4:24 PM EST Gender Identity Male 02/17/2020 4:24 PM EST Sexual Orientation Straight 02/17/2020 4: 24 PM EST Job Start Date Occupation Industry Not on file Not on file Not on file documented as of this encounter Progress Notes * EMI May - 12/01/2022 3:06 PM EDT [facility] [place] Consent Documentation Jazmyn Pitts provided consent/authorization to participate in the [employer]. documented in this encounter Plan of Treatment Upcoming Encounters Date Type Department Care Team ([facility] Contact Info) Description 12/01/2022 3:50 PM EDT Office Visit Family Practice [address] [phone] Edgardo Ramirez MD [address] [place] [id number] Arrived 01/02/2023 3:00 PM EST Office Visit Pharmacy [address] [phone] Pharmacist2, [facility] [address] [place] [address] 07/04/2023 3:00 PM EDT Office Visit Dermatology [facility] [address] [place] [phone] Mehran Morel PA-C [address] [place] [address] 08/28/2023 3:30 PM EDT Office Visit Cardiology, [facility] [address] [facility] [place] [id number] Mary Mancuso CRNP [address] [facility] [place] [address] Scheduled Orders Name Type Priority Associated Diagnoses Orde r Schedule MYCODE INITIAL ADULT Lab Routine MyCode Research Other*[id number] Expected: 12/01/2022 (Approximate), Expires: 12/21/2023 Scheduled Procedures Name Priority Associated Diagnoses Date/Ti me COLONOSCOPY FLEXIBLE PROXIMAL DIAGNOSTIC Recall History of colon polyps Health Maintenance Due Date Last Done Comments Hepatitis B (1 of 3 - 3-dose series) 1970 Diabetic Foot Exam 07/21/2022 07/21/2021, 08/24/2020 COVID-19 Vaccine ( season) 2022 12/19/2020, 11/28/2020 Influenza Vaccine (FLU shot) (#1) 2022 11/30/2021 HbA1c 11/29/2022 05/30/2022, 02/07, 08/10/2021, Additional history exists DIABETES-EYE EXAM 11/30/2022 11/30/2021, 08/24/2020 Depression Screening 03/04/2023 03/04/2022 Albumin/Creatinine Ratio 05/31/2023 023, 02/25/2022, 03/04/2021 GFR 05/31/2023 05/30/2022, 02/07, 08/10/2021, Additional history exists COLONOSCOPY-EVERY 5 YRS AGES 18-100 04/23/2025 04/23/2020, 04/23/2020 DTaP,Tdap,and Td Vaccines (2 - Td or Tdap) 06/02/2032 06/02/2022 Pneumococcal Vaccine: Pediatrics (0 to 5 Years) and At-Risk Patients (6 to 64 Years) Completed 07/21/2021 Zoster Vaccines Completed 06/02/2022, 03/04/2022 GARDASIL-HPV IMMUNIZATION SERIES Aged Out No longer eligible based on patient's age to complete this topic MENINGOCOCCAL (MENACTRA/MENVEO) Aged Out No longer eligible based on patient's age to complete this topic documented as of this encounter Medical Devices Implanted Type Area Credit Control Administrator Device Identifier Shelf Expiration Date Model / Serial / Lot Suture Steel 6 [id number] - [id number] Implanted:Qty: 4 on 06/29/2021 by Tirso Gallo MD at [place] [facility] [place]/A: Sternum JN[place] : [employer] 03/08/2026 [id number] / / [id number] documented as of this encounter Visit Diagnoses Diagnosis MyCode Research Other*[id number]- Primary documented in this encounter Advance Directives Latest Code Status on File Code Status Date Activated Date Inactivated Comments Full Code 06/29/2021 6:12 PM 07/03/2021 2:48 PM This order reflects the patients wishes and were consensually agreed upon. Care Teams Channel Man Relationship Specialty Start Date End Date Edgardo Ramirez MD [address] [place] [id number] PCP - General Family Medicine 08/21/20 documented as of this encounter
--- OUTSIDE RECORDS SUMMARY | 2023-02-01 08:12 | External Medical Summary | Summary of Care ---
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 Name Role Phone Edgardo Ramirez MD Primary Care P rovider Reason for Visit * Reason Comments Dosage Adjustment In Person (Anticoag Cl inic) Diabetes Follow-Up Encounter Details Date Type Department Care Team ([facility] Contact Info) Description 01/02/2023 3:00 PM EST Office Visit Pharmacy [address] [phone] Pharmacist2, [facility] [address] [id number] Type 2 diabetes mellitus with hyperglycemia, without long-term current use of insulin (HCC)* Allergies No known active allergiesdocumented as of this encounter (statuses as of 01/02/2023) Medications Medication Sig Dispensed Refills Start Date End Date Status Nitroglycerin 0.4 MG Sublingual Tablet Sublingual (Nitrostat)Indicati ons:Angina of effort Place under the tongue 1 Tablet every 5 minutes as needed for Pain, Chest. up to 3 doses in 15 minutes 25 Tablet 11 06/07/2021 Active metFORMIN HCl ER 500 MG Oral Tablet Extended Release 24 Hour (Glucophage XR)Indications:Refe rred for medication therapy management Take 2 Tablets by mouth daily. 180 Tablet 1 03/14/2022 Active [employer] Faina 2 [place] DeviceIndications:T ype 2 diabetes mellitus with hyperglycemia, without long-term current use of insulin (HCC) USE DIRECTED. USE TO MONITOR BLOOD GLUCOSE DAILY 2 Each 5 04/13/2022 Active Omeprazole 20 MG Oral Capsule Delayed Release (PriLOSEC)Indicatio ns:Gastroesophageal reflux disease without esophagitis,High triglycerides Take 1 Capsule by mouth in the morning. 90 Capsule 3 05/12/2022 Active Fexofenadine HCl 180 MG Oral Tablet (Jodie)Indication s:Environmental and seasonal allergies Take 1 Tablet by mouth daily as needed for Allergies. 30 Tablet 11 06/02/2022 Active Aspirin Low Dose 81 MG Oral Tablet Chewable (aspirin)Indication s:Angina of effort TAKE 1 TABLET BY MOUTH EVERY DAY IN THE MORNING 34 Tablet 06/24/2022 Active Isosorbide Mononitrate ER 30 MG Oral Tablet Extended Release 24 Hour (Imdur)Indications: Atherosclerotic heart disease of [place] coronary artery without angina pectoris TAKE 1 TABLET BY MOUTH EVERY DAY IN THE MORNING 90 Tablet 3 07/07/2022 Active Rosuvastatin Calcium 40 MG Oral Tablet (Crestor)Indication s:Atherosclerotic heart disease of [place] coronary artery without angina pectoris TAKE 1 TABLET IN THE MORNING. 90 Tablet 3 08/10/2022 Active Lisinopril 10 MG Oral Tablet (Prinivil)Indicatio ns:Hypertension goal BP (blood pressure) < 140/90 TAKE 1 TABLET BY MOUTH EVERY DAY IN THE MORNING 90 Tablet 3 08/24/2022 Active Triamcinolone Acetonide 0.1 % External Cream (Aristocort) Apply topically to affected area 2 times a day. To affected area. 45 g 0 09/10/2022 Active Trulicity 4.5 MG/0.5ML Subcutaneous Solution Pen-injector (Dulaglutide)Indica tions:Type 2 diabetes mellitus with hyperglycemia, without long-term current use of insulin (HCC) Inject 4.5 mg under the skin once a week. DX E11.9 - Medication was sent last month for a 90 day supply with 3 refills, please delete this refill if previous was already received - thank you 6 mL 10/25/2022 Active FreeStyle Faina 3 SensorIndications:T ype 2 diabetes mellitus with hyperglycemia, without long-term current use of insulin (HCC) Use as directed. Replace sensor every 14 days 6 Each 10/25/2022 Active Metoprolol Succinate ER 25 MG Oral Tablet Extended Release 24 Hour (toPROL XL)Indications:Athe rosclerotic heart disease of [place] coronary artery without angina pectoris TAKE 1 TABLET BY MOUTH EVERY DAY IN THE MORNING AND BEFORE BEDTIME 180 Tablet 3 11/07/2022 Active Fenofibrate 160 MG Oral Tablet (Lofibra)Indication s:Dyslipidemia, goal LDL below 70 Take 1 Tablet by mouth in the morning. with a meal. 90 Tablet 3 12/01/2022 Active DULoxetine HCl 30 MG Oral Capsule Delayed Release Particles (Cymbalta)Indicatio ns:Bilateral foot pain Take 1 Capsule by mouth in the morning. Do not cut, crush or chew. 30 Capsule 5 12/01/2022 Active glipiZIDE ER 10 MG Oral Tablet Extended Release 24 Hour (glipiZIDE XL) Take 1 Tablet by mouth in the morning. 90 Tablet 2 01/02/2023 Active glipiZIDE ER 5 MG Oral Tablet Extended Release 24 Hour (glipiZIDE XL) Take 2 Tablets by mouth in the morning. 180 Tablet 3 03/04/2022 Discontinue d(Medicatio n/Dose Changed) documented as of this encounter (statuses as of 01/02/2023) Active Problems Problem Noted Date Diagnosed Date Chronic pain of left lower extremity 06/02/2022 Difficulty using continuous positive airway pressure (CPAP) device 06/02/2022 Coronary artery disease of n ative artery of [place] heart with stable angina pectoris 03/04/2022 Enlarged tonsils 08/27/2021 Snoring 08/27/2021 Hx of CABG 07/21/2021 Needle phobia 07/21/2021 Coronary atherosclerosis of [place] coronary david ry 06/29/2021 Hypertension goal BP (blood pressure) < 140/90 0 03/03/2021 Type 2 diabetes mellitus wit h hyperglycemia, without long-term current use of insulin 08/24/2020 Dyslipidemia, goal LDL below 70 08/24/2020 Flat foot 08/24/2020 Chronic low back pain with left-sided sciatica 0 05/30/2017 Lumbar radiculopathy 05/30/2017 Gastroesophageal reflux disease without esophagi tis 05/25/2016 documented as of this encounter (statuses as of 01/02/2023) Resolved Problems Problem Noted Date Diagnosed Date Resolved Date Prediabetes 03/21/2017 05/30/2017 Overview: Per Prediabetes protocol #1 Obesity, Class I, BMI 30.0-3 4.9 (see actual BMI) 03/21/2012 05/30/2017 Esophageal reflux 01/05/2010 05/25/2016 Morbid obesity, BMI not known 01/19/2006 01/19/2006 documented as of this encounter (statuses as of 01/02/2023) Immunizations Name Administration Dates Next Due COVID-19 mRNA, LNP-s, No Pre serve, 2-Dose Series ([facility]) 12/19/2020 Hepatitis B Vaccine, Recombi nant, Adjuvanted, 20 mcg/mL (Heplisav-B) 12/01/2022 Pneumococcal Conjugate Vaccine, 20-valent (Prevn ar20) 07/21/2021 SEASONAL INFLUENZA, PF, 6 M & Above, IM , (FLULAVAL or FLUZONE) 12/01/2022,11/30/2021 TDAP (age 10 and older)(Boostrix) 06/02/2022 Zoster Vaccine Recombinant (Shingrix) 06/02/2022 ,03/04/2022 documented as of this encounter Social History Tobacco Use Types Packs/Day Years Used Date Smoking Tobacco: Former Cigarettes 0.5 20 Q uit: 06/02/2021 Smokeless Tobacco: Never Alcohol Use Standard Drinks/Week Comments Yes 1 (1 standard drink = 0.6 oz pur e alcohol) Some PHQ-2 Answer Date Recorded PHQ Adult Total [...] as of this encounter Progress Notes * Arnoldo Doan, [facility] - 01/02/2023 2:58 PM EST Images from the original note were not included. Medication Therapy Disease Management [facility] - Diabetes Management Progress Note Jazmyn Pitts, identified by name and date of , is a 52 year old male being seen for diabetes management/education. Patient presents for return diabetic visit. DIABETES: Current diabetic medications: Metformin XR 500mg - 2 tablets daily Glipizide ER 10mg - daily INCREASE: Trulicity 4.5 mg weekly Jardiance unaffordable Lisinopril 5mg daily Crestor 40mg - once daily Medication Injection Site: Abdomen and Thigh Lifestyle: Diet: unchanged Glucose Review/SMBG: Readings obtained from patient device Hypoglycemia: Does your blood sugar go below 70 mg/dL? No Hyperglycemia symptoms present: none Recent Labs Units 12/26/22 0727 05/30/22 0706 02/25/22 0725 HEMOGLOBIN A1C - [facility] % 6.9* 6.9* 8.4* Recent Labs Units 11/29/22 0711 05/30/22 0706 02/25/22 0725 ESTIMATED GLOMERULAR FILTRATION RATE - [facility] mL/min 84 72 89 CREATININE - [facility] mg/dL 1.1 1.2 1.0 HYPERTENSION: Patient on ACEi/ARB: yes BP Readings from Last 3 Encounters: 12/01/22 128/78 11/01/22 124/80 09/10/22 (P) 130/84 Blood pressure at goal: yes HYPERLIPIDEMIA: Patient is taking moderate or high intensity statin: yes HEALTH MAINTENANCE REVIEW: Health Maintenance Due Topic Date Due COVID-19 Vaccine ( season) 2022 Hepatitis B (2 of 2 - CpG 2-dose series) 12/29/2022 ASSESSMENT & PLAN: ICD-10-CM 1. Type 2 diabetes mellitus with hyperglycemia, without long-term current use of insulin (HCC) E11.65 BG Readings - Blood sugars controlled. Pt A1C stable and at goal. Pt using FL3, notes sensors will occasionally fall off early, reminded pt to contact manufacture when this happens. Pt should also look into buying Faina sensor covers on [employer]. Discussed TG improved, however, still above goal. Encouraged pt to limit foods that are fried or high in fat content. PCP recently increased fenofibrate dose. Medications - Reviewed current regimen, patient is adherent to regimen. Pt doing well with Trulicity dose increase, denies any concerns with SE or cost of current regimen. No medication changes at this time. Diet, Exercise, Lifestyle - No significant lifestyle changes since last visit. Pt notes he is active at work. Patient is agreeable to SMBG via FL3 daily. Patient aware to contact clinic if any hypoglycemia before next visit. MEDICATION CHANGES: no change Diabetic Medications: Metformin XR 500mg - 2 tablets daily Glipizide ER 10mg - daily Trulicity 4.5 mg weekly Jardiance unaffordable Lisinopril 10 mg daily Crestor 40mg - once daily HEALTH MAINTENANCE INTERVENTIONS: Labs: Up to Date Immunizations: Up to Date Foot Exam: Up to Date Eye Exam: Up to Date Annual Wellness Visit: N/A FOLLOW UP: This patient has met their goal HgA1C and has been graduated from the [facility] Diabetes Management [facility] effective today Yes. Arnoldo Doan [facility] Clinical Pharmacist - Digital Marketing Project Manager Medication Therapy Management Clinic 01/02/2023, 2:58 PM documented in this encounter Plan of Treatment Upcoming Encounters Date Type Department Care Team ([facility] st Contact Info) Description 06/02/2023 4:10 PM EDT Office Visit Family [address] [phone] Edgardo Ramirez MD [address] [place] [phone] 07/04/2023 3:00 PM EDT Office Visit Dermatology [address] [phone] Mehran Morel PA-C [address] [place] [phone] 08/28/2023 3:30 PM EDT Office Visit Cardiology, [facility] [address] [place] [id number] Mary Mancuso CRNP [address] [place] [phone] Scheduled Procedures Name Priority Associated Diagnoses Date/Ti me COLONOSCOPY FLEXIBLE PROXIMAL DIAGNOSTIC Recall History of colon polyps Health Maintenance Due Date Last Done Comments COVID-19 Vaccine ( - season) 2022 12/19/2020, 11/28/2020 Hepatitis B (2 of 2 - CpG 2-dose series) 12/29/2022 12/01/2022 Depression Screening 03/04/2023 03/04/2022 Albumin/Creatinine Ratio 05/31/2023 023, 02/25/2022, 03/04/2021 HbA1c 06/26/2023 12/26/2022, 05/08, 02/25/2022, Additional history exists GFR 11/30/2023 11/29/2022, 05/08, 02/25/2022, Additional history exists Diabetic Eye Exam 12/02/2023 12/01/2022, , 08/24/2020 Diabetic Foot Exam 12/02/2023 12/01/2022, 0 07/21/2021, 08/24/2020 COLONOSCOPY-EVERY 5 YRS AGES 18-100 04/23/2025 04/23/2020, 04/23/2020 DTaP,Tdap,and Td Vaccines (2 - Td or Tdap) 06/02/2032 06/02/2022 Pneumococcal Vaccine: Pediatrics (0 to 5 Years) and At-Risk Patients (6 to 64 Years) Completed 07/21/2021 Zoster Vaccines Completed 06/02/2022, 03/04/2022 Influenza Vaccine (FLU shot) Completed 12/01/2022, 11/30/2021 GARDASIL-HPV IMMUNIZATION SERIES Aged Out No longer eligible based on patient's age to complete this topic MENINGOCOCCAL (MENACTRA/MENVEO) Aged Out No longer eligible based on patient's age to complete this topic documented as of this encounter Medical Devices Implanted Type Area Child Welfare Specialist Device Identifier Shelf Expiration Date Model / Serial / Lot Suture Steel 6 [id number] - [id number] Implanted:Qty: 4 on 06/29/2021 by Tirso Gallo MD at [place] [facility] [place] [facility] [place] N[place]A: Sternum [employer] : [employer] 03/08/2026 [id number] / / [id number] documented as of this encounter Visit Diagnoses Diagnosis Type 2 diabetes mellitus with hyperglycemia, without long-term current use of insulin (HCC)- Primary documented in this encounter Advance Directives Latest Code Status on File Code Status Date Activated Date Inactivated Comments Full Code 06/29/2021 6:12 PM 07/03/2021 2:48 PM This order reflects the patients wishes and were consensually agreed upon. Care Teams Glassware Maker Demonstrator Relationship Specialty Start Date End Date Edgardo Ramirez MD [address] [place] [phone] PCP - General Family Medicine 08/21/20 documented as of this encounter
--- OUTSIDE RECORDS SUMMARY | 2023-02-01 08:12 | External Medical Summary | Summary of Care ---
Author Name Unknown Organization [facility] Address [address] [place] [address] Phone [phone] Care Team Providers Care Perinatal Director Name Role Phone Edgardo Ramirez MD Primary Care P rovider Reason for Visit * Reason Onset Date Comments Follow Up 6 month returnPa tient has no new concernsPatient would like to update immunizations (hep b & flu) Medication Administration 12/01/2022 Flu an d/or Pneumo Inj Encounter Details Date Type Department Care Team ([facility] st Contact Info) Description 12/01/2022 3:50 PM EDT Office Visit [address] [phone] Edgardo Ramirez MD [address] [place] [id number] Type 2 diabetes mellitus with hyperglycemia, without long-term current use of insulin (HCC)*; Bilateral foot pain; Pes planus of both feet; Dyslipidemia, goal LDL below 70; 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 30 Tablet 06/02/2022 Active Aspirin Low Dose 81 MG Oral Tablet Chewable (aspirin)Indication s:Angina of effort TAKE 1 TABLET BY MOUTH EVERY DAY IN THE MORNING 34 Tablet 06/24/2022 Active Isosorbide Mononitrate ER 30 MG Oral Tablet Extended Release 24 Hour (Imdur)Indications: Atherosclerotic heart disease of picayune coronary artery without angina pectoris TAKE 1 TABLET BY MOUTH EVERY DAY IN THE MORNING 90 Tablet 3 07/07/2022 Active Rosuvastatin Calcium 40 MG Oral Tablet (Crestor)Indication s:Atherosclerotic heart disease of picayune coronary artery without angina pectoris TAKE 1 [...] mL 3 10/25/2022 Active FreeStyle Faina 3 SensorIndications:T ype 2 diabetes mellitus with hyperglycemia, without long-term current use of insulin (HCC) Use as directed. Replace sensor every 14 days 6 Each 3 10/25/2022 Active Metoprolol Succinate ER 25 MG Oral Tablet Extended Release 24 Hour (toPROL XL)Indications:Athe rosclerotic heart disease of picayune coronary artery without angina pectoris TAKE 1 [...] or chew. 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 03/04/2022 Enlarged tonsils 08/27/2021 Snoring 08/27/2021 Hx of CABG 07/21/2021 Needle phobia 07/21/2021 Coronary atherosclerosis of picayune coronary david ry 06/29/2021 Hypertension goal BP (blood pressure) < 140/90 0 03/03/2021 Type 2 diabetes mellitus wit h hyperglycemia, without long-term current use of insulin 08/24/2020 Dyslipidemia, goal LDL below 70 08/24/2020 Flat foot 08/24/2020 Chronic low back pain with left-sided sciatica 0 05/30/2017 Lumbar radiculopathy 05/30/2017 Gastroesophageal reflux disease without esophagi tis 05/25/2016 documented as of this encounter (statuses as of 12/02/2022) Resolved Problems Problem Noted Date Diagnosed Date Resolved Date Prediabetes 03/21/2017 05/30/2017 Overview: Per Prediabetes protocol #1 Obesity, Class I, BMI 30.0-3 4.9 (see actual BMI) 03/21/2012 05/30/2017 Esophageal reflux 01/05/2010 05/25/2016 Morbid obesity, BMI not known 01/19/2006 01/19/2006 documented as of this encounter (statuses as of 12/02/2022) Immunizations Name Administration Dates Next Due COVID-19 mRNA, LNP-s, No Pre serve, 2-Dose Series ([employer]) 12/19/2020 Hepatitis B Vaccine, Recombi nant, Adjuvanted, [...] 20 Q uit: 06/02/2021 Smokeless Tobacco: Never Tobacco Cessation:Counseling Given: Not Answered Alcohol Use Standard Drinks/Week Comments Yes 1 [...] on file documented as of this encounter Last Filed Vital Signs Vital Sign Reading Time Taken Comments Blood Pressure 128/78 12/01/2022 3:26 PM EDT Pulse 80 12/01/2022 3:26 PM EDT Temperature 36.6 C (97.9 F) 12/01/2022 3:26 PM ED T Respiratory Rate 16 12/01/2022 3:26 PM EDT Oxygen Saturation 98% 12/01/2022 3:26 PM EDT Inhaled Oxygen Concentration - - Weight 109.3 kg (241 lb) 12/01/2022 3:26 PM EDT Height - - Body Mass Index 35.59 03/04/2022 4:14 PM EST documented in this encounter Patient Instructions * Patient Instructions* Caitlin Burk LPN - 12/01/2022 3:24 PM EDT Dear Jazmyn Pitts, The care of your Diabetes is very important to us. A yearly diabetic eye exam is important to protect your vision. If youre getting an eye exam done outside of [facility] please tell your Eye Doctor to fax or mail us the results of your Diabetic Eye Exam at your next visit. Our Address and Fax Number are listed below to help. Thank you for helping us to improve your Diabetes Care Our Office Address and Fax Number: Edgardo Peña MD [address] [phone] Diabetic Retinopathy: Evaluating Your Eyes Diabetic retinopathy is a condition that happens when diabetes damages blood vessels in the rear ofthe eye. It can lead to vision loss. To help catch it early, have a complete dilated eye exam at least once a year. During the exam, the eye healthcare provider will review your medical history, examine your eyes, and check your vision. Women who are and have pre-existing type 1 or type 2 diabetes have an increased risk of retinopathy. Women with diabetes should have an eye exam before or in the first trimester. They should continue to be monitored every trimester and for 1 year after delivery, depending on the severity of the retinopathy. The retina is the light-sensitive part of the eye that allows you to see. High blood sugar can damage blood vessels of the retina and cause them to leak or bleed. This damage can lead to abnormal blood vessel growth. This condition is called diabetic retinopathy. You may not have symptoms early in the disease. Later, there may be floaters, blurred vision, or poor night vision. There may also be partial or complete vision loss. Early cases of diabetic retinopathy can be treated by carefully controlling blood sugar, blood pressure, and cholesterol. Surgery or laser treatments may help restore lost vision. Laser surgery can shrink abnormal blood vessels or close ones that are leaking. Medicines injected in the eye can help decrease swelling of the retina. Home care Take all medicines, including insulin or oral diabetic medicine, exactly as prescribed. Follow the diet advised by your healthcare provider. If you have high cholesterol, follow a low-fat, low-cholesterol diet. Monitor blood sugars as advised. Try to achieve your ideal weight. If you smoke, quit smoking. Tobacco use worsens the effect of diabetes on your blood vessels. If you have high blood pressure, consider buying an automatic blood pressure machine. These are available at most pharmacies. Use this to monitor your blood pressure. Report your blood pressure readings to your healthcare provider. Exercise regularly. Follow-up care Follow up with your healthcare provider, or as advised. You must have a complete eye exam at least once a year, more often if needed. Untreated diabetic retinopathy can lead to complete loss of vision. Occupational therapists can help you adapt to any vision loss you have, including learning techniques to safely administer insulin. When to seek medical advice Call your healthcare provider right away if any of these occur. Increasing blurriness or any sudden changes in your vision Sudden flashes of light inside your eye New floaters (small dots or strings that seem to be moving across your field of vision) Eye pain, redness, or discharge from your eyelid New dark spots appearing in your field of vision Halos around lights Dimness of vision Partial or complete loss of vision Women with diabetes should have a complete eye exam before becoming , or as soon as possible when they find out they are . Retinopathy sometimes worsens during . Your eye exam Your eye healthcare provider uses an eye chart and other tools to check your vision. Then he or sheexamines your eyes for signs of disease. You are given eye drops to widen (dilate) your pupils. Youmay have one or more of the following tests: Tonometry to measure fluid pressure inside the eye. Slit lamp exam to allow the healthcare provider to view the structures of your eye. Ultrasound to create an image of the eye using sound waves. Ultrasound may be used if blood is found in the clear gel that fills the eye (vitreous). Ocular coherence tomography (OCT) to create an image of the retina using light waves. This shows ifthere is fluid leaking into certain parts of the eye. It can also measure the thickness of the retina. Fluorescein angiography This test may be done to check the health of the inside lining of the eye (retina). It also checks the tiny blood vessels (capillaries) that carry blood to the retina. During the test: Photographs are taken of the retina. A dye is then injected into the bloodstream through the arm or hand. The dye travels to the capillaries in the eye. More photographs are taken of the retina. The dye causes the capillaries to stand out on the photographs. You may feel brief nausea during the procedure. For a few hours after the test, your skin, eyes, and urine may appear yellow. Talk with your healthcare provider for more information about this test. Date Last Reviewed: 07/08/201519999413-1196 [employer]. [address] [place] [address], [place] [address]. All rights reserved. This information is not intended as a substitute for professional medical care. Always follow your healthcare professional's instructions. Vaccination is the best way to protect against hepatitis B. Most people should get 3 doses of hepatitis B vaccine. If you miss a dose or get behind schedule, get the next dose as soon as you can. There is no need to start over. Age for Hepatitis B Vaccine: INFANTS: *Infants whose mother HAS hepatitis B virus: #1 dose- at 2 month visit #2 dose- 1 month after dose #1 #3 dose- 7 months of age (at least 5 months after dose #1) *Infants whose mother does NOT have hepatitis B virus: #1 dose- - 2 months of age #2 dose- 1-4 months of age (at least 1 month after dose #1) #3 dose- 6-18 months of age ( at least 2 months after dose #2) *Other recommended age groups #1 dose- Now #2 dose- 1-2 months after dose #1 #3 dose- 4-6 months after dose #1 WHAT ARE THE RISKS FROM HEPATITIS B VACCINE? Hepatitis B vaccine is one of the safest vaccines. Getting the disease is much more likely to causeserious illness than getting the vaccine. MILD PROBLEMS: - soreness where the shot was given. - mild to moderate fever Acetaminophen or Ibuprofen (not aspirin) may be used to reduce fever and pain. SEVERE PROBLEMS: - serious allergic reaction is very rare. WHAT TO DO IF THERE IS A SERIOUS REACTION: - Call a doctor or get the person to a doctor right away. - Ask your doctor, nurse, or health department to file a Vaccine Adverse Event Report form. To filea report yourself you can call: (toll-free) LET YOUR DOCTOR KNOW IMMEDIATELY IF YOU HAVE DIFFICULTY BREATHING OR SWALLOWING, EXPERIENCE ITCHING OF FEET OR HANDS, HAVE SWELLING OF EYES, FACE OR INSIDE OF NOSE. documented in this encounter Progress Notes * Edgardo Ramirez MD - 12/01/2022 3:32 PM EDT Subjective: Jazmyn Pitts is a 51 year old male. Chief Complaint Patient presents with Follow Up 6 month return Patient has no new concerns Patient would like to update immunizations (hep b & flu) Medication Administration Flu and/or Pneumo Inj HPI: Patient is in the office for six-month follow-up chronic medical problems. Regarding diabetes: Being followed by [facility] pharmacy. On Trulicity 4.5 mg subQ weekly, metformin ER 500 mg 2 tablets daily and glipizide ER 5 mg 2 tablets every morning. A1c was 6.9% on 05/30/2022. I did not order an A1c for today. Regarding CAD /Hypertension: Continues to take metoprolol succinate 25 mg daily, lisinopril 10 mg daily, rosuvastatin 40 mg daily, fenofibrate 145 mg daily isosorbide mononitrate ER 30 mg daily, aspirin 81 mg daily. Has sublingual nitroglycerin available but has not had to use it. LDL 57. Triglycerides 204. Total cholesterol 111. HDL 24. Triglycerides have decreased from 300. Hepatitis-B surface antibody negative. Denies chest pain or difficulty breathing. Denies dizziness. Regarding GERD: Denies any heartburn. Takes omeprazole 20 mg every morning. Regarding chronic low back pain: Reports doing well. Gets cramps on left leg and pain on feet. Ibuprofen use is sparingly. Left foot hurts more than right. Inserts recommended by podiatry did not help. 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 up to 3 doses in 15 minutes 25 Tablet 11 glipiZIDE ER 5 MG Oral Tablet Extended Release 24 Hour (glipiZIDE XL) Take 2 Tablets by mouth in the morning. 180 Tablet 3 metFORMIN HCl ER 500 MG Oral Tablet Extended Release 24 Hour (Glucophage XR) Take 2 Tablets by mouth daily. 180 Tablet 1 FreeStyle Faina 2 Percy Device USE DIRECTED. USE TO MONITOR BLOOD GLUCOSE DAILY 2 Each 5 Omeprazole 20 MG Oral Capsule Delayed Release (PriLOSEC) Take 1 Capsule by mouth in the morning. 90Capsule 3 Fexofenadine HCl 180 MG Oral Tablet (Jodie) Take 1 Tablet by mouth daily as needed for Allergies.30 Tablet 11 Aspirin Low Dose 81 MG Oral Tablet Chewable (aspirin) TAKE 1 TABLET BY MOUTH EVERY DAY IN THE MORNING 34 Tablet 11 Isosorbide Mononitrate ER 30 MG Oral Tablet Extended Release 24 Hour (Imdur) TAKE 1 TABLET BY MOUTHEVERY DAY IN THE MORNING 90 Tablet 3 Rosuvastatin Calcium 40 MG Oral Tablet (Crestor) TAKE 1 TABLET IN THE MORNING. 90 Tablet 3 Lisinopril 10 MG Oral Tablet (Prinivil) TAKE 1 TABLET BY MOUTH EVERY DAY IN THE MORNING 90 Tablet 3 Triamcinolone Acetonide 0.1 % External Cream (Aristocort) Apply topically to affected area 2 times a day. To affected area. 45 g 0 Trulicity 4.5 MG/0.5ML Subcutaneous Solution Pen-injector (Dulaglutide) Inject 4.5 mg under the skin once a week. DX E11.9 - Medication was sent last month for a 90 day supply with 3 refills, please delete this refill if previous was already received - thank you 6 mL 3 FreeStyle Faina 3 Sensor Use as directed. Replace sensor every 14 days 6 Each 3 Metoprolol Succinate ER 25 MG Oral Tablet Extended Release 24 Hour (toPROL XL) TAKE 1 TABLET BY MOUTH EVERY DAY IN THE MORNING AND BEFORE BEDTIME 180 Tablet 3 Fenofibrate 160 MG Oral Tablet (Lofibra) Take 1 Tablet by mouth in the morning. with a meal. 90 Tablet 3 DULoxetine HCl 30 MG Oral Capsule Delayed Release Particles (Cymbalta) Take 1 Capsule by mouth in the morning. Do not cut, crush or chew. 30 Capsule 5 No current facility-administered medications for this visit. Past Medical History: Diagnosis Date Dyslipidemia Type 2 diabetes mellitus (HCC) Past Surgical History: Procedure Laterality Date CABG, ARTERIAL, SINGLE N/A 06/29/2021 CORONARY ARTERY BYPASS GRAFT USING ARTERY 1 GRAFT performed by Tirso Gallo MD at [facility] COLONOSCOPY, DIAGNOSTIC (RECTUM) 04/23/2020 adenomatous polyp, repeat 5 yrs / COLONOSCOPY FLEXIBLE PROXIMAL DIAGNOSTIC performed by Yulisa Parker MD at ENDOSCOPY [facility] ENDO,VIDEO ASSIST HARVEST DELVIN N/A 06/29/2021 ENDOSCOPY VIDEO ASSISTED HARVEST VEIN performed by Tirso Gallo MD at [facility] Review of patient's allergies indicates: No Known Allergies Family History Problem Relation Age of Onset No Past Hx Mother Diabetes Father Neurological Disorder Brother No Past Hx Brother No Past Hx Son Other (Other) Daughter cleft palate,colapsed lung at Family Status Relation Status Mo Alive Fa Alive Bro Alive Bro Alive Son Alive Karissa Alive Bro (Not Specified) Bro (Not Specified) Son (Not Specified) Karissa (Not Specified) Social History Socioeconomic History Marital status: Spouse name: Not on file Number of children: Not on file Years of education: Not on file Highest education level: Not on file Occupational History Employer: [employer] Tobacco Use Smoking status: Former Packs/day: 0.50 Years: 20.00 Additional pack years: 0.00 Total pack years: 10.00 Types: Cigarettes Quit date: 06/02/2021 Years since quittin.4 Smokeless tobacco: Never Vaping Use Vaping Use: Never used Substance and Sexual Activity Alcohol use: Yes Alcohol/week: 1.0 - 2.0 standard drink of alcohol Types: 1 - 2 Mixed drink(s) containing 1.5 shots of alcohol per week Comment: Some Drug use: No Sexual activity: Yes Partners: Female Other Topics Concern Not on file Social History Narrative Not on file Social Determinants of Health Financial Resource Strain: Not on file Food Insecurity: No Food Insecurity (08/24/2020) Hunger Vital Sign Worried About Running Out of Food in the Last Year: Never true Ran Out of Food in the Last Year: Never true Transportation Needs: Not on file Physical Activity: Not on file Stress: Not on file Social Connections: Not on file Intimate Partner Violence: Not on file Housing Stability: Not on file Objective: BP 128/78 | Pulse 80 | Temp 36.6 C (97.9 F) (Tympanic) | Resp 16 | Wt 109.3 kg (241 lb) | SpO2 98% | BMI (P) 35.59 kg/m | BSA (P) 2.31 m Physical Exam Vitals and nursing note reviewed. Constitutional: General: He is not in acute distress. Appearance: Normal appearance. He is not ill-appearing or toxic-appearing. HENT: Head: Normocephalic and atraumatic. Right Ear: Tympanic membrane normal. Left Ear: Tympanic membrane normal. Nose: Nose normal. No congestion or rhinorrhea. Mouth/Throat: Mouth: Mucous membranes are dry. Eyes: General: No scleral icterus. Pupils: Pupils are equal, round, and reactive to light. Neck: Vascular: No carotid bruit. Cardiovascular: Rate and Rhythm: Normal rate and regular rhythm. Pulses: Dorsalis pedis pulses are 2+ on the right side and 2+ on the left side. Posterior tibial pulses are 2+ on the right side and 2+ on the left side. Heart sounds: No murmur heard. Pulmonary: Effort: Pulmonary effort is normal. Breath sounds: No wheezing, rhonchi or rales. Abdominal: General: Bowel sounds are normal. Palpations: Abdomen is soft. Tenderness: There is no abdominal tenderness. Musculoskeletal: Cervical back: Normal range of motion. Right lower leg: No edema. Left lower leg: No edema. Right foot: Deformity present. Left foot: Deformity present. Feet: Right foot: Protective Sensation: 10 sites tested. 10 sites sensed. Skin integrity: Skin integrity normal. Toenail Condition: Right toenails are normal. Left foot: Protective Sensation: 10 sites tested. 10 sites sensed. Skin integrity: Skin integrity normal. Toenail Condition: Left toenails are normal. Lymphadenopathy: Cervical: No cervical adenopathy. Skin: General: Skin is warm and dry. Capillary Refill: Capillary refill takes less than 2 seconds. Findings: No rash. Neurological: General: No focal deficit present. Mental Status: He is alert and oriented to person, place, and time. Psychiatric: Mood and Affect: Mood normal. Behavior: Behavior normal. Thought Content: Thought content normal. Judgment: Judgment normal. ASSESSMENT: Type 2 diabetes mellitus with hyperglycemia, without long-term current use of insulin ([facility]) (Primary) - DIABETES FOOT EXAM - BASIC METABOLIC PANEL; Future; Expected date: 12/01/2022 - HEMOGLOBIN A1C; Future; Expected date: 12/26/2022 - COMPREHENSIVE METABOLIC PANEL; Future; Expected date: 06/02/2023 - CBC WITH WBC DIFFERENTIAL; Future; Expected date: 06/02/2023 - HEMOGLOBIN A1C; Future; Expected date: 06/02/2023 - ALBUMIN / CREATININE RATIO, URINE; Future; Expected date: 06/02/2023 - INSOLE,MULT DENS,CUSTOM MOLD, DIABETIC ONLY Bilateral foot pain - DULoxetine HCl 30 MG Oral Capsule Delayed Release Particles (Cymbalta); Take 1 Capsule by mouth in the morning. Do not cut, crush or chew. Pes planus of both feet - INSOLE,MULT DENS,CUSTOM MOLD, DIABETIC ONLY Dyslipidemia, goal LDL below 70 - Fenofibrate 160 MG Oral Tablet (Lofibra); Take 1 Tablet by mouth in the morning. with a meal. Atherosclerosis of picayune coronary artery of picayune heart without angina pectoris - LIPID PANEL WITHOUT DIRECT LDL; Future; Expected date: 06/02/2023 Hypertension goal BP (blood pressure) < 140/90 Gastroesophageal reflux disease without esophagitis DM type 2 nursing care encounter (HCC) - TELEMEDICINE DIABETIC EYE Need for prophylactic vaccination and inoculation against influenza - INFLUENZA VACC, QUAD, PF, 6 MONTHS & UP, 0.5 ML, IM - HEP B VACC ADULT, 2 DOSE (HEPLISAV) IM Chronic bilateral low back pain with left-sided sciatica Encounter for long-term current use of medication - VITAMIN B12; Future; Expected date: 06/02/2023 Check A1c next month to assess diabetes control and follow-up with [facility] pharmacy. Will add BNP to current labs. Telemedicine diabetes eye exam done today. Increase fenofibrate 260 mg daily and continue rosuvastatin 40 mg daily. Plan to recheck fasting labs in 6 months. Start duloxetine 30 mg every morning with a meal to help with chronic foot pain and also prescription for custom diabetic insoles that he can wear inside his footwear. Appropriate medication use and potential medication side effects discussed with patient. Hepatitis-B vaccine and influenza vaccine provided today. Try to get COVID-19 vaccine at local pharmacy. Follow Up: Return in about 6 months (around 06/02/2023), or if symptoms worsen or fail to improve, for f/u chronic problems, schedule labs before next OV. | For: f/u chronic problems, schedule labs before next OV | Check-out note: Please print diabetic insole Rx for patient. Edgardo Peña MD * Caitlin Burk LPN - 12/01/2022 3:24 PM EDT The importance of having a yearly diabetic eye exam has been discussed with patient. Order and/or Referral placed along with patient instructions. Provider made aware. Caitlin Burk LPN documented in this encounter Nursing Notes * Neela Nixon CCMA - 12/01/2022 4:20 PM EDT Pre-Administration Time Out Procedure Performed: Yes Patient Identified (Ask Name/Date of ): Yes Does the patient have a fever greater than 101 degrees today? No Patient allergic to latex? No Has the patient ever fainted after receiving an injection? No VFC Stock: No Immunization(s) verified: Yes, Immunization Name: Flu and Heplisav-B (Hepatitis B Vaccine Adult), VIS Sheet(s) given: Yes Verified Side and Site: Yes Verified Shot(s) with Parent(s)/Patient: Yes * Everett Olmedo LPN - 12/01/2022 4:14 PM EDT A Diabetic Telemed Eye image was taken and requires your interpretation for Dr Filiberto Olmedo. Please check your inbasket for image. Patient prefers to be seen at [facility] if a follow-up appointment is needed. * Caitlin Burk LPN - 12/01/2022 3:26 PM EDT The patient has been properly identified by confirmation of name and date of . Chief Complaint Patient presents with Follow Up 6 month return Patient has no new concerns Patient would like to update immunizations (hep b & flu) Medication Administration Flu and/or Pneumo Inj documented in this encounter Plan of Treatment Upcoming Encounters Date Type Department Care Team (Late st Contact Info) Description 01/02/2023 3:00 PM EST Office Visit Pharmacy [address] [phone] Pharmacist2, [facility] [address] [address] 06/02/2023 4:10 PM EDT Office Visit Family Practice [address] [phone] Edgardo Ramirez MD [address] [place] [address] 07/04/2023 3:00 PM EDT Office Visit Dermatology [address] [phone] Mehran Morel PA-C [address] [place] [address] 08/28/2023 3:30 PM EDT Office Visit Cardiology, [facility] [address] [facility] [place] [address] Mary Mancuso CRNP 132 [facility] [place] [address] Scheduled Orders Name Type Priority Associated Diagnoses Orde r Schedule HEMOGLOBIN A1C Lab Routine Type 2 diabetes mellitus with hyperglycemia, without long-term current use of insulin (HCC) Expected: 12/26/2022 (Approximate), Expires: 12/01/2023 COMPREHENSIVE METABOLIC PANEL Lab Routine Type 2 diabetes mellitus with hyperglycemia, without long-term current use of insulin (HCC) Expected: 06/02/2023 (Approximate), Expires: 12/01/2023 CBC WITH WBC DIFFERENTIAL Lab Routine Type 2 diabetes mellitus with hyperglycemia, without long-term current use of insulin (HCC) Expected: 06/02/2023 (Approximate), Expires: 12/02/2023 HEMOGLOBIN A1C Lab Routine Type 2 diabetes mellitus with hyperglycemia, without long-term current use of insulin (HCC) Expected: 06/02/2023 (Approximate), Expires: 12/01/2023 ALBUMIN / CREATININE RATIO, URINE Lab Routine Type 2 diabetes mellitus with hyperglycemia, without long-term current use of insulin (HCC) Expected: 06/02/2023 (Approximate), Expires: 12/01/2023 LIPID PANEL WITHOUT DIRECT LDL Lab Routine Atherosclerosis of [place] coronary artery of [place] heart without angina pectoris Expected: 06/02/2023 (Approximate), Expires: 12/01/2023 VITAMIN B12 Lab Routine Encounter for long-term current use of medication Expected: 06/02/2023 (Approximate), Expires: 12/01/2023 Scheduled Procedures Name Priority Associated Diagnoses Date/Ti me COLONOSCOPY FLEXIBLE PROXIMAL DIAGNOSTIC Recall History of colon polyps Health Maintenance Due Date Last Done Comments COVID-19 Vaccine ( season) 2022 12/19/2020, 11/28/2020 HbA1c 11/29/2022 05/30/2022, 02/07, 08/10/2021, Additional history exists Hepatitis B (2 of 2 - CpG 2-dose series) 12/29/2022 12/01/2022 Depression Screening 03/04/2023 03/04/2022 Albumin/Creatinine Ratio 05/31/2023 023, 02/25/2022, 03/04/2021 GFR 11/30/2023 11/29/2022, 05/08, 02/25/2022, Additional history exists DIABETES-EYE EXAM 12/02/2023 12/01/2022, , 08/24/2020 Diabetic Foot Exam [...] this encounter Medical Devices Implanted Type Area Tmd Teacher Device Identifier Shelf Expiration Date Model / Serial / Lot Suture Steel 6 B&S19 M654g - [id number] Implanted:Qty: 4 on 06/29/2021 by Tirso Gallo MD at OR [facility] N/A: Sternum JNJ : [employer] 03/08/2026 [id number] / / SBBAEH documented as of this encounter Procedures Procedure Name Priority Date/Time Associated Diagnosis Comments TELEMEDICINE DIABETIC EYE Routine 12/01/2022 DM type 2 nursing care encounter (HCC) documented in this encounter Results * TELEMEDICINE DIABETIC EYE (12/01/2022) 12/01/2022 Edgardo Olmedo MD DIGITAL PHOTOGRAPHY * (ABNORMAL) BASIC METABOLIC PANEL (11/29/2022 7:11 AM EDT) BUN 17 6 - 20 mg/dL 12/01/2022 4:48 PM EDT [facility] Creatinine 1.1 0.6 - 1.2 mg/dL 12/01/2022 4:48 PM EDT [facility] Estimated Glomerular Filtration Rate 84 >=60 mL/min 12/01/2022 4:48 PM EDT [facility] Comment:eGFR is calculated b ased on the CKD-EPI 2020 equation Sodium 140 135 - 146 mmol/L 12/01/2022 4:48 PM EDT [facility] Potassium 4.6 3.5 - 5.1 mmol/L 12/01/2022 4:48 PM EDT [facility] Chloride 102 98 - 107 mmol/L 12/01/2022 4:48 PM EDT [facility] CO2 20(L) 22 - 32 mmol/L 12/01/2022 4:48 PM EDT [facility] Anion Gap 18(H) 7 - 15 mmol/L 12/01/2022 4:48 PM EDT [facility] Glucose 135(H) 70 - 120 mg/dL 12/01/2022 4:48 PM EDT [facility] Calcium 9.5 8.4 - 10.2 mg/dL 12/01/2022 4:48 PM EDT [facility] Blood Venous blood specimen / Unknown Venipuncture / Unknown 11/29/2022 7:11 AM EDT 11/29/2022 7:12 AM EDT Edgardo Olmedo MD LAB BLO OD ORDERABLES [facility] [address] [place] [address] documented in this encounter Visit Diagnoses Diagnosis Type 2 diabetes mellitus with hyperglycemia, without long-term current use of insulin (HCC)- Primary Bilateral foot pain Pain in limb Pes planus of both feet Dyslipidemia, goal LDL below 70 Other and unspecified hyperlipidemia Atherosclerosis of [place] coronary artery of [place] heart without angina pectoris Hypertension goal BP (blood pressure) < 140/90 Unspecified essential hypertension Gastroesophageal reflux disease without esophagitis Esophageal reflux DM type 2 nursing care encounter (HCC) Type II or unspecified type diabetes mellitus without mention of complication, not stated as uncontrolled Need for prophylactic vaccination and inoculation against influenza Chronic bilateral low back pain with left-sided sciatica Encounter for long-term current use of medication documented in this encounter Advance Directives Latest Code Status on File Code Status Date Activated Date Inactivated Comments Full Code 06/29/2021 6:12 PM 07/03/2021 2:48 PM This order reflects the patients wishes and were consensually agreed upon. Care Teams Perinatal Director Relationship Specialty Start Date End Date Edgardo Ramirez MD [address] [place] [phone] PCP - General Family Medicine 08/21/20 documented as of this encounter"
--- OUTSIDE RECORDS SUMMARY | 2023-02-01 08:12 | External Medical Summary | Summary of Care ---
Author Name Unknown Organization [facility] Address [address] [place] [place] [address] Phone [phone] Care Team Providers Care Landing Signal Officer Name Role Phone Edgardo Ramirez MD Primary Care P rovider Reason for Visit * Reason Comments Outpatient Testing Encounter Details Date Type Department Care Team ([facility] st Contact Info) Description 12/26/2022 8:[address] [facility] Laboratory Laboratory Patient Service [address] [phone] [facility] [address] [place] [address] Type 2 diabetes mellitus with hyperglycemia, without long-term current use of insulin (HCC) Allergies No known active allergiesdocumented as of this encounter (statuses as of 12/26/2022) Medications Medication Sig Dispensed Refills Start Date [...] mouth daily. 180 Tablet 1 03/14/2022 Active FreeStyle Faina 2 [place] DeviceIndications:Ty pe 2 diabetes mellitus with hyperglycemia, [...] 24 Hour (Imdur)Indications:A therosclerotic heart disease of [place] coronary artery without angina pectoris TAKE 1 TABLET BY MOUTH EVERY DAY IN THE MORNING 90 Tablet 3 07/07/2022 Active Rosuvastatin Calcium 40 MG Oral Tablet (Crestor)Indications :Atherosclerotic heart disease of [place] coronary artery without angina pectoris TAKE 1 [...] Hour (toPROL XL)Indications:Ather osclerotic heart disease of [place] coronary artery without angina pectoris TAKE 1 TABLET BY MOUTH EVERY DAY IN THE MORNING AND BEFORE BEDTIME 180 Tablet 3 11/07/2022 Active Fenofibrate 160 MG Oral Tablet (Lofibra)Indications :Dyslipidemia, goal LDL below 70 Take 1 Tablet by mouth in the morning. with a meal. 90 Tablet 3 12/01/2022 Active DULoxetine HCl 30 MG Oral Capsule Delayed Release Particles (Cymbalta)Indication s:Bilateral foot pain Take 1 Capsule by mouth in the morning. Do not cut, crush or chew. 30 Capsule 5 12/01/2022 Active documented as of this encounter (statuses as of 12/26/2022) Active Problems Problem Noted Date Diagnosed Date Chronic pain of left lower extremity 06/02/2022 Difficulty using continuous positive airway pressure (CPAP) device 06/02/2022 Coronary artery disease of n ative artery of [place] heart with stable angina pectoris 03/04/2022 Enlarged tonsils 08/27/2021 Snoring 08/27/2021 Hx of CABG 07/21/2021 Needle phobia 07/21/2021 Coronary atherosclerosis of [place] coronary david ry 06/29/2021 Hypertension goal BP (blood pressure) < 140/90 0 03/03/2021 Type 2 diabetes mellitus wit h hyperglycemia, without long-term current use of insulin 08/24/2020 Dyslipidemia, goal LDL below 70 08/24/2020 Flat foot 08/24/2020 Chronic low back pain with left-sided sciatica 0 05/30/2017 Lumbar radiculopathy 05/30/2017 Gastroesophageal reflux disease without esophagi tis 05/25/2016 documented as of this encounter (statuses as of 12/26/2022) Resolved Problems Problem Noted Date Diagnosed Date Resolved Date Prediabetes 03/21/2017 05/30/2017 Overview: Per Prediabetes protocol #1 Obesity, Class I, BMI 30.0-3 4.9 (see actual BMI) 03/21/2012 05/30/2017 Esophageal reflux 01/05/2010 05/25/2016 Morbid obesity, BMI not known 01/19/2006 01/19/2006 documented as of this encounter (statuses as of 12/26/2022) Immunizations Name Administration Dates Next Due COVID-19 mRNA, LNP-s, No Pre serve, 2-Dose Series ([employer]) 12/19/2020 Hepatitis B Vaccine, Recombi nant, Adjuvanted, [...] on file documented as of this encounter Plan of Treatment Upcoming Encounters Date Type Department Care Team ([facility] Contact Info) Description 01/02/2023 3:00 PM EST Office Visit Pharmacy [facility], [address] [place] [phone] Pharmacist2 [facility] [address] [address] 06/02/2023 4:10 PM EDT Office Visit Family Practice [facility] [address] [place] [phone] Edgardo Ramirez MD [address] [place] [address] 07/04/2023 3:00 PM EDT Office Visit Dermatology [facility] [address] [place] [phone] Mehran Morel PA-C [address] [place] [address] 08/28/2023 3:30 PM EDT Office Visit Cardiology, [facility] [address] [facility] [place] [address] Mary Mancuso CRNP [address] [facility] [place] [address] Pending Results Name Type Priority Associated Diagnoses Date /Time HEMOGLOBIN A1C Lab Routine Type 2 diabetes mellitus with hyperglycemia, without long-term current use of insulin (HCC) 12/26/2022 7:27 AM EST Scheduled Procedures Name Priority Associated Diagnoses Date/Ti [...] this encounter Medical Devices Implanted Type Area Print Shop Stenographer Device Identifier Shelf Expiration Date Model / Serial / Lot Suture Steel 6 B&S19 M654g - [id number] Implanted:Qty: 4 on 06/29/2021 by Tirso Gallo MD at OR [facility] [facility] N/A: Sternum JNJ : [employer] 03/08/2026 [id number] / / SBBAEH documented as of this encounter Visit Diagnoses Diagnosis Type 2 diabetes mellitus with hyperglycemia, without long-term current use of insulin (HCC) documented in this encounter Advance Directives Latest Code Status on File Code Status Date Activated Date Inactivated Comments Full Code 06/29/2021 6:12 PM 07/03/2021 2:48 PM This order reflects the patients wishes and were consensually agreed upon. Care Teams Landing Signal Officer Relationship Specialty Start Date End Date Edgardo Ramirez MD [address] [place] [address] PCP - General Family Medicine 08/21/20 documented as of this encounter
--- OUTSIDE RECORDS SUMMARY | 2023-02-01 08:12 | External Medical Summary | Summary of Care ---
Author Name Unknown Organization [facility] Address [address] [place] [address] Phone [phone] Care Team Providers Care Vehicle Sales Professional Name Role Phone Edgardo Ramirez MD Primary Care P rovider Reason for Visit * Reason Onset Date Comments Test Results 12/01/2022 Encounter Details Date Type Department Care Team ([facility] Contact Info) Description 12/01/2022 Telephone Family Practice [address] [phone] Edgardo Ramirez MD [address] [place] [address] Test Results Allergies No known active allergiesdocumented as of [...] Tablet 1 03/14/2022 Active FreeStyle Faina 2 [place] DeviceIndications:Ty pe 2 diabetes mellitus with hyperglycemia, [...] 24 Hour (Imdur)Indications:A therosclerotic heart disease of [place] coronary artery without angina pectoris TAKE 1 TABLET BY MOUTH EVERY DAY IN THE MORNING 90 Tablet 3 07/07/2022 Active Rosuvastatin Calcium 40 MG Oral Tablet (Crestor)Indications :Atherosclerotic heart disease of [place] coronary artery without angina pectoris TAKE 1 TABLET IN THE MORNING. 90 Tablet 3 08/10/2022 Active Lisinopril 10 MG Oral Tablet (Prinivil)Indication s:Hypertension goal BP (blood pressure) < 140/90 TAKE 1 TABLET BY MOUTH EVERY DAY IN THE MORNING 90 Tablet 3 08/24/2022 Active Fenofibrate 145 MG Oral Tablet (Tricor)Indications: Mixed dyslipidemia TAKE 1 TABLET BY MOUTH EVERY DAY 30 Tablet 11 08/25/2022 Active Triamcinolone Acetonide 0.1 % External [...] Hour (toPROL XL)Indications:Ather osclerotic heart disease of [place] coronary artery without angina pectoris TAKE 1 TABLET BY MOUTH EVERY DAY IN THE MORNING AND BEFORE BEDTIME 180 Tablet 3 11/07/2022 Active documented as of this encounter (statuses as of 12/01/2022) Active Problems Problem Noted Date Diagnosed Date Chronic pain of left lower extremity 06/02/2022 Difficulty using continuous positive airway pressure (CPAP) device 06/02/2022 Coronary artery disease of n ative artery of [place] heart with stable angina pectoris 03/04/2022 Enlarged tonsils 08/27/2021 Snoring 08/27/2021 Hx of CABG 07/21/2021 Needle phobia 07/21/2021 Coronary atherosclerosis of [place] coronary david ry 06/29/2021 Hypertension goal BP [...] mRNA, LNP-s, No Pre serve, 2-Dose Series ([employer]) 12/19/2020 Pneumococcal Conjugate Vaccine, 20-valent (Prevn ar20) [...] 4:24 PM EST Sexual Orientation Straight 02/17/2020 4 :24 PM EST Job Start Date Occupation Industry Not on file Not on file Not on file documented as of this encounter Miscellaneous Notes * Telephone Encounter - IRISH Cota - 12/01/2022 1:15 PM EDT Called and spoke with Patient and gave results. Patient verbalized understanding. Patient agreeableto Heplisav and would like to start the series at today's visit. * Telephone Encounter - Caitlin Burk LPN - 12/01/2022 12:47 PM EDT ----- Message from Edgardo Olmedo MD sent at 11/30/2022 5:54 PM EDT ----- Hepatitis-B surface antibody is negative, therefore patient is not immune against hepatitis-B virus. Please offer her Heplisav vaccine series during office visit. documented in this encounter Plan of Treatment Upcoming Encounters Date Type Department Care Team ([facility] Contact Info) Description 12/01/2022 3:50 PM EDT Office Visit Family [address] [phone] Edgardo Ramirez MD [address] [place] [address] 01/02/2023 3:00 PM EST Office Visit Pharmacy [address] [phone] Pharmacist2, [facility] [address] [address] 07/04/2023 3:00 PM EDT Office Visit Dermatology [address] [phone] Mehran Morel PA-C [address] [place] [address] 08/28/2023 3:30 PM EDT Office Visit Cardiology, [facility] 132 [facility] [place] [address] Mary [facility]ancuso CRNP [facility] [place] [address] Scheduled Procedures Name Priority Associated Diagnoses Date/Ti me COLONOSCOPY FLEXIBLE PROXIMAL DIAGNOSTIC Recall History of colon polyps Health Maintenance Due Date Last Done Comments Hepatitis B (1 of 3 - 3-dose series) 1970 Diabetic Foot Exam 07/21/2022 07/21/2021, 08/24/2020 COVID-19 Vaccine (3 - 2022- season) 2022 12/19/2020, 11/28/2020 Influenza Vaccine (FLU [...] this encounter Medical Devices Implanted Type Area Pulp Beater Device Identifier Shelf Expiration Date Model / Serial / Lot Suture Steel 6 B&S19 M654g - [id number] Implanted:Qty: 4 on 06/29/2021 by Tirso Gallo MD at [place] [facility] [place] N/A: Sternum JNJ : [employer] 03/08/2026 [id number] / / [id number] documented as of this encounter Advance Directives Latest Code Status on File Code Status Date Activated Date Inactivated Comments Full Code 06/29/2021 6:12 PM 07/03/2021 2:48 PM This order reflects the patients wishes and were consensually agreed upon. Care Teams Vehicle Sales Professional Relationship Specialty Start Date End Date Edgardo Ramirez MD [address] [place] [address] PCP - General Family Medicine 08/21/20 documented as of this encounter
--- OUTSIDE RECORDS SUMMARY | 2023-02-01 08:12 | External Medical Summary ---
Author Name Unknown Address Unknown Organization K01:[facility] [place] [facility] [address] [place] [id number] Laboratory Report Ordering Provider Test Date Status ANDREW HERRING 12/26/2022 07:27:12 Final Observation Date Value Abnormality Reference (Units ) Status HbA1C 12/26/2022 07:27:12 6.9 Above high normal 4. 0-5.6 (%) Final The use of HbA1c to monitor glycemic status is based on normal hemoglobin and HbA composition. This test should not be used in patients with abnormal hemoglobin that affects the half life of the red blood cell or the in vivo glycation rates. Glucose, estimated average 12/26/2022 07:27:12 151 Above high normal <126 (mg/dL) Carlos Eduardo self Performing Location [facility] [place] [facility] [address] [place] [address]
--- OUTSIDE RECORDS SUMMARY | 2023-02-01 08:12 | External Medical Summary | Summary of Care ---
Author Name Unknown Organization [facility] Address [address] [place] [address] Phone [phone] Care Team Providers Care Supervisor [employer] Name Role Phone Edgardo Ramirez MD Primary Care P rovider Reason for Visit * Reason Onset Date Comments Test Results 12/01/2022 Encounter Details Date Type Department Care Team ([facility] Contact Info) Description 12/01/2022 Telephone Family Practice [address] [phone] Edgardo Ramirez MD [address] [place] [address] Test Results Allergies No known active [...] Tablet 1 03/14/2022 Active FreeStyle Faina 2 [place] DeviceIndications:Ty pe 2 diabetes mellitus with hyperglycemia, [...] 24 Hour (Imdur)Indications:A therosclerotic heart disease of [place] coronary artery without angina pectoris TAKE 1 TABLET BY MOUTH EVERY DAY IN THE MORNING 90 Tablet 3 07/07/2022 Active Rosuvastatin Calcium 40 MG Oral Tablet (Crestor)Indications :Atherosclerotic heart disease of [place] coronary artery without angina pectoris TAKE 1 [...] Hour (toPROL XL)Indications:Ather osclerotic heart disease of [place] coronary artery without angina pectoris TAKE 1 TABLET BY MOUTH EVERY DAY IN THE MORNING AND BEFORE BEDTIME 180 Tablet 3 11/07/2022 Active documented as of this encounter (statuses as of 12/01/2022) Active Problems Problem Noted Date Diagnosed Date Chronic pain of left lower extremity 06/02/2022 Difficulty using continuous positive airway pressure (CPAP) device 06/02/2022 Coronary artery disease of n ative artery of [place] heart with stable angina pectoris 03/04/2022 Enlarged tonsils 08/27/2021 Snoring 08/27/2021 Hx of CABG 07/21/2021 Needle phobia 07/21/2021 Coronary atherosclerosis of [place] coronary david ry 06/29/2021 Hypertension goal BP [...] mRNA, LNP-s, No Pre serve, 2-Dose Series ([employer]) 12/19/2020 Pneumococcal Conjugate Vaccine, 20-valent (Prevn ar20) [...] Upcoming Encounters Date Type Department Care Team ([facility] Contact Info) Description 12/01/2022 3:50 PM EDT Office Visit Family [address] [phone] Edgardo Ramirez MD [address] [place] [address] 01/02/2023 3:00 PM EST Office Visit Pharmacy [address] [phone] Pharmacist2, [facility] [address] [address] 07/04/2023 3:00 PM EDT Office Visit Dermatology [address] [phone] Mehran Morel PA-C [address] [place] [address] 08/28/2023 3:30 PM EDT Office Visit Cardiology, [facility] 132 [facility] [place] [address] Mary [facility]ancuso CRNP [facility] [place] [address] Scheduled Procedures Name Priority Associated Diagnoses Date/Ti [...] this encounter Medical Devices Implanted Type Area Cutting Supervisor Device Identifier Shelf Expiration Date Model / Serial / Lot Suture Steel 6 B&S19 M654g - [id number] Implanted:Qty: 4 on 06/29/2021 by Tirso Gallo MD at [place] [facility] [place] N/A: Sternum [employer] : [employer] 03/08/2026 [id number] / / [id number] documented as of this encounter Advance Directives Latest Code Status on File Code Status Date Activated Date Inactivated Comments Full Code 06/29/2021 6:12 PM 07/03/2021 2:48 PM This order reflects the patients wishes and were consensually agreed upon. Care Teams Supervisor [employer] Relationship Specialty Start Date End Date Edgardo Ramirez MD [address] [place] [address] PCP - General Family Medicine 08/21/20 documented as of this encounter
--- OUTSIDE RECORDS SUMMARY | 2023-02-01 08:13 | External Medical Summary | Summary of Care ---
Author Name Unknown Organization [facility] Address [address] [place] [address] Phone [phone] Care Team Providers Care Toddler Caregiver Name Role Phone Edgardo Leone MD Primary Care P rovider Reason for Visit * Reason Onset Date Comments Medication Refill 10/24/2022 Encounter Details Date Type Department Care Team Description 10/24/2022 Refill Pharmacy [address] [phone] Edgardo Leone MD [address] [place] [phone] Type 2 diabetes mellitus with hyperglycemia, without long-term current use of insulin (HCC) Allergies No known active allergiesdocumented as of this encounter (statuses as of 10/25/2022) Medications Medication Sig Dispensed Refills Start Date End Date Status Nitroglycerin 0.4 MG Sublingual Tablet Sublingual (Nitrostat)Indicati ons:Angina of effort (HCC) Place under the tongue 1 Tablet every 5 minutes as needed for Pain, Chest. up to 3 doses in 15 minutes 25 Tablet 11 06/07/2021 Active Metoprolol Succinate ER 25 MG Oral Tablet Extended Release 24 Hour (toPROL XL)Indications:Athe rosclerotic heart disease of [place]vas[place] coronary artery without angina pectoris TAKE 1 TABLET BY MOUTH EVERY DAY IN THE MORNING AND BEFORE BEDTIME 30 Tablet 11 11/08/2021 Active glipiZIDE ER 5 MG Oral Tablet Extended Release 24 Hour (glipiZIDE XL) Take 2 Tablets by mouth in the morning. 180 Tablet 3 03/04/2022 Active metFORMIN HCl ER 500 MG Oral Tablet Extended Release 24 Hour (Glucophage XR)Indications:Refe rred for medication therapy management Take 2 Tablets by mouth daily. 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 90 Tablet 3 08/10/2022 Active Lisinopril 10 MG Oral Tablet (Prinivil)Indicatio ns:Hypertension goal BP (blood pressure) < 140/90 TAKE 1 TABLET BY MOUTH EVERY DAY IN THE MORNING 90 Tablet 3 08/24/2022 Active Fenofibrate 145 MG Oral Tablet (Tricor)Indications [...] sensor every 14 days 6 Each 3 08/25/2022 3 Discontinue d(Refill) Trulicity 4.5 MG/0.5ML Subcutaneous Solution Pen-injector (Dulaglutide)Indica tions:Type 2 diabetes mellitus with hyperglycemia, without long-term current use of insulin (HCC) Inject 4.5 mg under the skin once a week. 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 03/04/2022 Enlarged tonsils 08/27/2021 Snoring 08/27/2021 Hx of CABG 07/21/2021 Needle phobia 07/21/2021 Coronary atherosclerosis of havasupai coron aung artery 06/29/2021 Hypertension goal BP (blood pressure) < 140/90 03/03/2021 Type 2 diabetes mellitus wit h hyperglycemia, without long-term current use of insulin 08/24/2020 Dyslipidemia, goal LDL below 70 08/25/19 21 Flat foot 08/24/2020 Chronic low back pain with left-sided sc iatica 05/30/2017 Lumbar radiculopathy 05/30/2017 Gastroesophageal reflux disease without esophagitis 05/25/2016 documented as of this encounter (statuses as of 10/25/2022) Resolved Problems Problem Noted Date Resolved Date Prediabetes 03/21/2017 05/30/2017 Overview: Per Prediabetes protocol #1 Obesity, Class I, BMI 30.0-34.9 (see actual BMI) 03/21/2012 05/30/2017 Esophageal reflux 01/05/2010 05/25/2016 Morbid obesity, BMI not known 01/19/2006 documented as of this encounter (statuses as of 10/25/2022) Immunizations Name Administration Dates Next Due COVID-19 mRNA, LNP-s, No Pre serve, 2-Dose Series (Pfizer) 12/19/2020 Pneumococcal Conjugate Vaccine, 20-valent (Prevn ar20) 07/21/2021 Seasonal Influenza, PF, 6 mo ns & Above, IM , (Flulaval) 11/30/2021 TDAP (age 10 and older)(Boostrix) 06/02/2022 Zoster Vaccine Recombinant (Shingrix) 06/02/2022 ,03/04/2022 documented as of this encounter Social History Tobacco Use Types Packs/Day Years Used Date Smoking Tobacco: Former Cigarettes 0.5 20 Q uit: 06/02/2021 Smokeless Tobacco: Never Alcohol Use Standard Drinks/Week Comments Yes 1 (1 standard drink = 0.6 oz pur e alcohol) 4 time month Food Insecurity Answer Date Recorded Within the past 12 months, y ou worried that your food would run out before you got money to buy more. Never true 08/24/2020 Within the past 12 months, t he food you bought just didn't last and you didn't have money to get more. Never true 08/24/2020 Sex Assigned at Date Recorded Male 02/17/2020 4:[address] Job Start Date Occupation Industry Not on file Not on file Not on file documented as of this encounter Miscellaneous Notes * Telephone Encounter - Amelie Cid [facility] - 10/25/2022 7:59 AM EDTSigned Prescriptions: Disp Refills Trulicity 4.5 MG/0.5ML Subcutaneous Soluti*6 mL 3 Sig: Inject 4.5 mg under the skin once a week. DX E11.9 - Medication was sent last month for a 90 day supply with 3 refills, please delete this refill if previous was already received - thank youAuthorizing Provider: EDGARDO LEONE User: AMELIE CID documented in this encounter Plan of Treatment Upcoming Encounters Date Type Specialty Care Team Description 11/01/2022 Office Visit Cardiology Mary Mancuso CRNP [address] [place] [phone] 12/01/2022 Office Visit Pharmacy Pharmacist2, [facility] [address] [place], [place] [phone] 12/01/2022 Office Visit Family Medicine Edgardo Leone MD [address], [place] [phone] 07/04/2023 Office Visit Dermatology Mehran Morel PA-C [address], [place] [phone] Scheduled Procedures Name Priority Associated Diagnoses Date/Ti me COLONOSCOPY FLEXIBLE PROXIMAL DIAGNOSTIC Recall History of colon polyps Health Maintenance Due Date Last Done Comments Hepatitis B (1 of 3 - 3-dose series) 1970 COVID-19 Vaccine (3 - Pfizer series) 02/13/2021 12/19/2020, 11/28/2020 Diabetic Foot Exam 07/21/2022 07/21/2021, 08/24/2020 Influenza Vaccine (FLU shot) (#1) 2022 11/30/2021 [...] Patients (6 to 64 Years) Completed 07/21/2021 Hepatitis C Screening Completed 08/10/2021 , 08/10/2021, 08/10/2021 Zoster Vaccines Completed 06/02/2022, 03/04/2022 GARDASIL-HPV IMMUNIZATION SERIES Aged Out No longer eligible based on patient's age to complete this topic MENINGOCOCCAL (MENACTRA/MENVEO) Aged Out No longer eligible based on patient's age to complete this topic documented as of this encounter Medical Devices Implanted Type Area Log Check Scaler Device Identifier Shelf Expiration Date Model / Serial / Lot Suture Steel 6 B&S19 M654g - [id number] Implanted:Qty: 4 on 06/29/2021 [place] Tirso Gall[place] [facility] [place] Sternum JNJ : [employer] 03/08/2026 [...] and were consensually agreed upon. Care Teams Toddler Caregiver Relationship Specialty Start Date End Date Edgardo Leone MD [address] [place] [phone] PCP - General Family Medicine 08/21/20 documented as of this encounter
--- OUTSIDE RECORDS SUMMARY | 2023-02-01 08:13 | External Medical Summary | Summary of Care ---
Author Name Unknown Organization [facility] Address [address] [place] [address] Phone [phone] Care Team Providers Care Tax Form Preparer Name Role Phone Edgardo Ramirez MD Primary Care P rovider Reason for Visit * Reason Comments Outpatient Testing Encounter Details Date Type Department Care Team (Late st Contact Info) Description 11/29/2022 7:50 AM EDT Laboratory Laboratory Patient Service [address] [phone] [facility] [address] [address] Need for hepatitis B vaccination; Atherosclerosis of [place] coronary artery of [place] heart without angina pectoris; HTN, goal below 140/90; Dyslipidemia, goal LDL below 70 Allergies No known active allergiesdocumented as of this encounter (statuses as of 11/29/2022) Medications Medication Sig Dispensed Refills Start Date [...] Tablet 1 03/14/2022 Active FreeStyle Faina 2 [place] DeviceIndications:Ty pe 2 diabetes mellitus with hyperglycemia, [...] 24 Hour (Imdur)Indications:A therosclerotic heart disease of [place] coronary artery without angina pectoris TAKE 1 TABLET BY MOUTH EVERY DAY IN THE MORNING 90 Tablet 3 07/07/2022 Active Rosuvastatin Calcium 40 MG Oral Tablet (Crestor)Indications :Atherosclerotic heart disease of [place] coronary artery without angina pectoris TAKE 1 [...] Hour (toPROL XL)Indications:Ather osclerotic heart disease of [place] coronary artery without angina pectoris TAKE 1 TABLET BY MOUTH EVERY DAY IN THE MORNING AND BEFORE BEDTIME 180 Tablet 3 11/07/2022 Active documented as of this encounter (statuses as of 11/29/2022) Active Problems Problem Noted Date Diagnosed Date Chronic pain of left lower extremity 06/02/2022 Difficulty using continuous positive airway pressure (CPAP) device 06/02/2022 Coronary artery disease of n ative artery of [place] river heart with stable angina pectoris 03/04/2022 Enlarged tonsils 08/27/2021 Snoring 08/27/2021 Hx of CABG 07/21/2021 Needle phobia 07/21/2021 Coronary atherosclerosis of [place] coronary david ry 06/29/2021 Hypertension goal BP (blood pressure) < 140/90 0 03/03/2021 Type 2 diabetes mellitus wit h hyperglycemia, without long-term current use of insulin 08/24/2020 Dyslipidemia, goal LDL below 70 08/24/2020 Flat foot 08/24/2020 Chronic low back pain with left-sided sciatica 0 05/30/2017 Lumbar radiculopathy 05/30/2017 Gastroesophageal reflux disease without esophagi tis 05/25/2016 documented as of this encounter (statuses as of 11/29/2022) Resolved Problems Problem Noted Date Diagnosed Date Resolved Date Prediabetes 03/21/2017 05/30/2017 Overview: Per Prediabetes protocol #1 Obesity, Class I, BMI 30.0-3 4.9 (see actual BMI) 03/21/2012 05/30/2017 Esophageal reflux 01/05/2010 05/25/2016 Morbid obesity, BMI not known 01/19/2006 01/19/2006 documented as of this encounter (statuses as of 11/29/2022) Immunizations Name Administration Dates Next Due COVID-19 mRNA, LNP-s, No Pre serve, 2-Dose Series (Thinkr) 12/19/2020 Pneumococcal Conjugate Vaccine, 20-valent (Prevn ar20) [...] Upcoming Encounters Date Type Department Care Team ([facility] Contact Info) Description 12/01/2022 3:00 PM EDT Office Visit Pharmacy [address] [phone] Pharmacist2, [facility] [address] [address] 12/01/2022 3:50 PM EDT Office Visit Family Practice [address] [phone] Edgardo Ramirez MD [address] [place] [phone] 07/04/2023 3:00 PM EDT Office Visit Dermatology [facility] [address] [place] [phone] Mehran Morel PA-C [address] [facility] [place] [address] 08/28/2023 3:30 PM EDT Office Visit Cardiology, [facility] [address] [place] [phone] Mary Mancuso CRNP [address] [place] [phone] Pending Results Name Type Priority Associated Diagnoses Date /Time HEPATITIS B SURFACE ANTIBODY Lab Routine Need for hepatitis B vaccination 11/29/2022 7:11 AM EDT LIPID PANEL WITH DIRECT LDL IF TG IS HIGH Lab Routine Atherosclerosis of [place] coronary artery of [place] heart without angina pectoris HTN, goal below 140/90 Dyslipidemia, goal LDL below 70 11/29/2022 7:11 AM EDT Scheduled Procedures Name Priority Associated Diagnoses Date/Ti [...] this encounter Medical Devices Implanted Type Area Watch Repairer Apprentice Device Identifier Shelf Expiration Date Model / Serial / Lot Suture Steel 6 B&S19 M654g - [id number] Implanted:Qty: 4 on 06/29/2021 by Tirso Gallo MD at [place] [facility] [place] N/A: Sternum JNJ : [employer] 03/08/2026 M654G / / SBBAEH documented as of this encounter Visit Diagnoses Diagnosis Need for hepatitis B vaccination Need for prophylactic vaccination and inoculation against viral hepatitis Atherosclerosis of [place] coronary artery of [place] heart without angina pectoris HTN, goal below 140/90 Unspecified essential hypertension Dyslipidemia, goal LDL below 70 Other and unspecified hyperlipidemia documented in this encounter Advance Directives Latest Code Status on File Code Status Date Activated Date Inactivated Comments Full Code 06/29/2021 6:12 PM 07/03/2021 2:48 PM This order reflects the patients wishes and were consensually agreed upon. Care Teams Tax Form Preparer Relationship Specialty Start Date End Date Edgardo Ramirez MD [address] [place] [phone] PCP - General Family Medicine 08/21/20 documented as of this encounter
--- OUTSIDE RECORDS SUMMARY | 2023-02-01 08:13 | External Medical Summary | Summary of Care ---
Author Name Unknown Organization [facility] Address [address] [place] [address] Phone [phone] Care Team Providers Care Air Conditioning Coil Assembler Name Role Phone Edgardo Leone MD Primary Care P rovider Reason for Visit * Reason Comments eRx-Medication Refill Encounter Details Date Type Department Care Team Description 08/23/2022 Refill Family Practice [address] [phone] Edgardo Leone MD [address] [place] [phone] Hypertension goal BP (blood pressure) < 140/90 Allergies No known active allergiesdocumented as of this encounter (statuses as of 08/24/2022) Medications Medication Sig Dispensed Refills Start Date End Date Status Nitroglycerin 0.4 MG Sublingual Tablet Sublingual (Nitrostat)Indicati ons:Angina of effort (HCC) Place under the tongue 1 Tablet every 5 minutes as needed for Pain, Chest. up to 3 doses in 15 minutes 25 Tablet 11 06/07/2021 Active Fenofibrate 145 MG Oral Tablet (Tricor)Indications :Mixed dyslipidemia TAKE 1 TABLET BY MOUTH EVERY DAY 30 Tablet 11 08/11/2021 Active Metoprolol Succinate ER 25 MG Oral Tablet Extended Release 24 Hour (toPROL XL)Indications:Athe rosclerotic heart disease of [place] coronary artery without angina pectoris TAKE 1 [...] Tablet 1 03/14/2022 Active FreeStyle Faina 2 [place] DeviceIndications:T ype 2 diabetes mellitus with hyperglycemia, without long-term current use of insulin ([facility]) USE DIRECTED. USE TO MONITOR BLOOD GLUCOSE [...] 24 Hour (Imdur)Indications: Atherosclerotic heart disease of [place] coronary artery without angina pectoris TAKE 1 TABLET BY MOUTH EVERY DAY IN THE MORNING 90 Tablet 3 07/07/2022 Active Trulicity 4.5 MG/0.5ML Subcutaneous Solution Pen-injector (Dulaglutide)Indica tions:Type 2 diabetes mellitus with hyperglycemia, without long-term current use of insulin ([facility]) Inject 4.5 mg under the skin once a week. 6 mL 3 08/02/2022 Active FreeStyle Faina 3 SensorIndications:T ype 2 diabetes mellitus with hyperglycemia, without long-term current use of insulin (HCC) Use as directed. Replace sensor every 14 days 6 Each 3 08/02/2022 Active Rosuvastatin Calcium 40 MG Oral Tablet (Crestor)Indication s:Atherosclerotic heart disease of [place] coronary artery without angina pectoris TAKE 1 TABLET IN THE MORNING. 90 Tablet 3 08/10/2022 Active Lisinopril 10 MG Oral Tablet (Prinivil)Indicatio ns:Hypertension goal BP (blood pressure) < 140/90 TAKE 1 TABLET BY MOUTH EVERY DAY IN THE MORNING 90 Tablet 3 08/24/2022 Active Lisinopril 10 MG Oral Tablet (Prinivil)Indicatio ns:Hypertension goal BP (blood pressure) < 140/90 Take 1 Tablet by mouth in the morning. 30 Tablet 5 03/04/2022 3 Discontinued documented as of this encounter (statuses as of 08/24/2022) Active Problems Problem Noted Date Chronic pain of left lower extremity Difficulty using continuous positive air way pressure (CPAP) device 06/02/2022 Coronary artery disease of n ative artery of [place] heart with stable angina pectoris 03/04/2022 Enlarged tonsils 08/27/2021 Snoring 08/27/2021 Hx of CABG 07/21/2021 Needle phobia 07/21/2021 Coronary atherosclerosis of [place] coron augn artery 06/29/2021 Hypertension goal BP (blood pressure) < 140/90 03/03/2021 Type 2 diabetes mellitus wit h hyperglycemia, without long-term current use of insulin 08/24/2020 Dyslipidemia, goal LDL below 70 08/25/19 21 Flat foot 08/24/2020 Chronic low back pain with left-sided sc iatica 05/30/2017 Lumbar radiculopathy 05/30/2017 Gastroesophageal reflux disease without esophagitis 05/25/2016 documented as of this encounter (statuses as of 08/24/2022) Resolved Problems Problem Noted Date Resolved Date Prediabetes 03/21/2017 05/30/2017 Overview: Per Prediabetes protocol #1 Obesity, Class I, BMI 30.0-34.9 (see actual BMI) 03/21/2012 05/30/2017 Esophageal reflux 01/05/2010 05/25/2016 Morbid obesity, BMI not known 01/19/2006 documented as of this encounter (statuses as of 08/24/2022) Immunizations Name Administration Dates Next Due COVID-19 mRNA, LNP-s, No Pre serve, 2-Dose Series (DecaWave) 12/19/2020 Pneumococcal Conjugate Vaccine, 20-valent (Prevn ar20) 07/21/2021 Seasonal Influenza, Quadriva lent, No Preserve, 6 Mons & Above, IM 11/30/2021 TDAP (age 10 and older)(Boostrix) 06/02/2022 [...] encounter Miscellaneous Notes * Telephone Encounter - Dio Leblanc [facility] - 08/24/2022 5:32 PM EDTSigned Prescriptions: Disp Refills Lisinopril 10 MG Oral Tablet (Prinivil) 90 Tab*3 Sig: TAKE 1 TABLET BY MOUTH EVERY DAY IN THE MORNINGAuthorizing Provider: EDGARDO LEONE User: DIO LEBLANC documented in this encounter Plan of Treatment Upcoming Encounters Date Type Specialty Care Team Description 10/17/2022 Office Visit Cardiology Linwood Pearce DO [address] [place] [address] 12/01/2022 Office Visit Pharmacy Pharmacist2, [address] [place] [phone] 12/01/2022 Office Visit Family Medicine Edgardo Leone MD [address] [place] [address] 07/04/2023 Office Visit Dermatology Mehran Morel PA-C [address] [place] [address] Scheduled Procedures Name Priority Associated Diagnoses Date/Ti me COLONOSCOPY FLEXIBLE PROXIMAL DIAGNOSTIC Recall History of colon polyps Health Maintenance Due Date Last Done Comments Hepatitis B (1 of 3 - 3-dose series) 1970 COVID-19 Vaccine (3 - Pfizer series) 02/13/2021 12/19/2020, 11/28/2020 DIABETES-FOOT EXAM 07/21/2022 07/21/2021, 08/24/2020 Influenza Vaccine (FLU shot) (#1) 2022 11/30/2021 HbA1c 11/29/2022 05/30/2022, 02/07, 08/10/2021, Additional history exists DIABETES-EYE EXAM 11/30/2022 11/30/2021, 08/24/2020 Depression Screening, Annual for Pts 12 and Over 03/04/2023 03/04/2022 Albumin/Creatinine Ratio 05/31/2023 023, 02/25/2022, [...] this encounter Medical Devices Implanted Type Area Cement Fittings Maker Device Identifier Shelf Expiration Date Model / Serial / Lot Suture Steel 6 B&S19 M654g - [id number] Implanted:Qty: 4 on 06/29/2021 by Tirso Gallo MD at [place] [facility] [place] N/A: Sternum JNJ : [employer] 03/08/2026 M654G / / SBBAEH documented as of this encounter Visit Diagnoses Diagnosis Hypertension goal BP (blood pressure) < 140/90 Unspecified essential hypertension documented in this encounter Advance Directives Latest Code Status on File Code Status Date Activated Date Inactivated Comments Full Code 06/29/2021 6:12 PM 07/03/2021 2:48 PM This order reflects the patients wishes and were consensually agreed upon. Care Teams Air Conditioning Coil Assembler Relationship Specialty Start Date End Date Edgardo Leone MD [address] [place] [phone] PCP - General Family Medicine 08/21/20 documented as of this encounter
--- OUTSIDE RECORDS SUMMARY | 2023-02-01 08:13 | External Medical Summary | Summary of Care ---
Author Name Unknown Organization [facility] Address [address] [place] [address] Phone [phone] Care Team Providers Care Radiology Administrator Name Role Phone Edgardo Ramirez MD Primary Care P rovider Reason for Visit * Reason Comments Rash Encounter Details Date Type Department Care Team Description 09/10/2022 Convenient Care Visit [address] [phone] Shawna Beaver CRNP [address] [place] [address] Rash and nonspecific skin eruption* Allergies No known active allergiesdocumented as of this encounter (statuses as of 09/10/2022) Medications Medication Sig Dispensed Refills Start Date End Date Status Nitroglycerin 0.4 MG Sublingual Tablet Sublingual (Nitrostat)Indicatio ns:Angina of effort (HCC) Place under the tongue 1 Tablet every 5 minutes as needed for Pain, Chest. up to 3 doses in 15 minutes 25 Tablet 11 06/07/2021 Active Metoprolol Succinate ER 25 MG Oral Tablet Extended Release 24 Hour (toPROL XL)Indications:Ather osclerotic heart disease of [place] coronary artery without angina pectoris TAKE 1 [...] Tablet 1 03/14/2022 Active FreeStyle Faina 2 [place] DeviceIndications:Ty pe 2 diabetes mellitus with hyperglycemia, without long-term current use of insulin ([facility]) USE DIRECTED. USE TO MONITOR BLOOD GLUCOSE [...] Oral Tablet Chewable (aspirin)Indications :Angina of effort (HCC) TAKE 1 TABLET BY MOUTH EVERY DAY IN THE MORNING 34 Tablet 11 06/24/2022 Active Isosorbide Mononitrate ER 30 MG Oral Tablet Extended Release 24 Hour (Imdur)Indications:A therosclerotic heart disease of [place] coronary artery without angina pectoris TAKE 1 TABLET BY MOUTH EVERY DAY IN THE MORNING 90 Tablet 3 07/07/2022 Active Rosuvastatin Calcium 40 MG Oral Tablet (Crestor)Indications :Atherosclerotic heart disease of [place] coronary artery without angina pectoris TAKE 1 TABLET IN THE MORNING. 90 Tablet 3 08/10/2022 Active Lisinopril 10 MG Oral Tablet (Prinivil)Indication s:Hypertension goal BP (blood pressure) < 140/90 TAKE 1 TABLET BY MOUTH EVERY DAY IN THE MORNING 90 Tablet 3 08/24/2022 Active Fenofibrate 145 MG Oral Tablet (Tricor)Indications: Mixed dyslipidemia TAKE 1 TABLET BY MOUTH EVERY DAY 30 Tablet 08/25/2022 Active FreeStyle Faina 3 SensorIndications:Ty pe 2 diabetes mellitus with hyperglycemia, without long-term current use of insulin (HCC) Use as directed. Replace sensor every 14 days 6 Each 08/25/2022 Active Trulicity 4.5 MG/0.5ML Subcutaneous Solution Pen-injector (Dulaglutide)Indicat ions:Type 2 diabetes mellitus with hyperglycemia, without long-term current use of insulin (HCC) Inject 4.5 mg under the skin once a week. DX E11.9 - Medication was sent last month for a 90 day supply with 3 refills, please delete this refill if previous was already received - thank you 6 mL 3 09/05/2022 Active Triamcinolone Acetonide 0.1 % External Cream (Aristocort) Apply topically to affected area 2 times a day. To affected area. 45 g 0 09/10/2022 Active documented as of this encounter (statuses as of 09/10/2022) Active Problems Problem Noted Date Chronic pain of left lower extremity Difficulty using continuous positive air way pressure (CPAP) device 06/02/2022 Coronary artery disease of n ative artery of [place] heart with stable angina pectoris 03/04/2022 Enlarged tonsils 08/27/2021 Snoring 08/27/2021 Hx of CABG 07/21/2021 Needle phobia 07/21/2021 Coronary atherosclerosis of [place] coron aung artery 06/29/2021 Hypertension goal BP (blood pressure) < 140/90 03/03/2021 Type 2 diabetes mellitus wit h hyperglycemia, without long-term current use of insulin 08/24/2020 Dyslipidemia, goal LDL below 70 08/25/19 21 Flat foot 08/24/2020 Chronic low back pain with left-sided sc iatica 05/30/2017 Lumbar radiculopathy 05/30/2017 Gastroesophageal reflux disease without esophagitis 05/25/2016 documented as of this encounter (statuses as of 09/10/2022) Resolved Problems Problem Noted Date Resolved Date Prediabetes 03/21/2017 05/30/2017 Overview: Per Prediabetes protocol #1 Obesity, Class I, BMI 30.0-34.9 (see actual BMI) 03/21/2012 05/30/2017 Esophageal reflux 01/05/2010 05/25/2016 Morbid obesity, BMI not known 01/19/2006 documented as of this encounter (statuses as of 09/10/2022) Immunizations Name Administration Dates Next Due COVID-19 mRNA, LNP-s, No Pre serve, 2-Dose Series ([employer]) 12/19/2020 Pneumococcal Conjugate Vaccine, 20-valent (Prevn ar20) [...] as of this encounter Progress Notes * TISHA Amaya - 09/10/2022 4:07 PM EDT Subjective Jazmyn Pitts is a 51 year old male. Chief Complaint Patient presents with Rash Nursing Notes: Everett Olmedo LPN 09/10/22 1558 Signed Jazmyn Pitts is a 51 year old male who presents to walk-in clinic today complaining of Chief Complaint Patient presents with Rash Main Symptoms:Rash on posterior inner thighs and getting bigger Cause: unknown How lon month Tried: Benadryl anti-itch, lotion Pt accompanied by: self HPI: Here for rash on inner left thigh and a small patch on back of knee. Not sure what caused the rash to start. Has tried different topicals but just will not go away. He is diabetic PMH: Patient Active Problem List Diagnosis Code Gastroesophageal reflux disease without esophagitis K21.9 Chronic low back pain with left-sided sciatica M54.42, G89.29 Lumbar radiculopathy M54.16 Type 2 diabetes mellitus with hyperglycemia, without long-term current use of insulin (HCC) E11.65 Dyslipidemia, goal LDL below 70 E78.5 Flat foot M21.40 Hypertension goal BP (blood pressure) < 140/90 I10 Coronary atherosclerosis of [place] coronary artery I25.10 Hx of CABG Z95.1 Needle phobia F40.298 Enlarged tonsils J35.1 Snoring R06.83 Coronary artery disease of [place] artery of [place] heart with stable angina pectoris (HCC) I25.118 Chronic pain of left lower extremity M79.605, G89.29 Difficulty using continuous positive airway pressure (CPAP) device Z78.9 Current Outpatient Medications Medication Sig Dispense Refill Nitroglycerin 0.4 MG Sublingual Tablet Sublingual (Nitrostat) Place under the tongue 1 Tablet every 5 minutes as needed for Pain, Chest. up to 3 doses in 15 minutes 25 Tablet 11 Metoprolol Succinate ER 25 MG Oral Tablet Extended Release 24 Hour (toPROL XL) TAKE 1 TABLET BYMOUTH EVERY DAY IN THE MORNING AND BEFORE BEDTIME 30 Tablet 11 glipiZIDE ER 5 MG Oral Tablet Extended Release 24 Hour (glipiZIDE XL) Take 2 Tablets by mouth in the morning. 180 Tablet 3 metFORMIN HCl ER 500 MG Oral Tablet Extended Release 24 Hour (Glucophage XR) Take 2 Tablets by mouth daily. 180 Tablet 1 FreeStyle Faina 2 [place] Device USE DIRECTED. USE TO MONITOR BLOOD GLUCOSE DAILY 2 Each 5 Omeprazole 20 MG Oral Capsule Delayed Release (PriLOSEC) Take 1 Capsule by mouth in the morning. 90 Capsule 3 Fexofenadine HCl 180 MG Oral Tablet (Jodie) Take 1 Tablet by mouth daily as needed for Allergies. 30 Tablet 11 Aspirin Low Dose 81 MG Oral Tablet Chewable (aspirin) TAKE 1 TABLET BY MOUTH EVERY DAY IN THE MORNING 34 Tablet 11 Isosorbide Mononitrate ER 30 MG Oral Tablet Extended Release 24 Hour (Imdur) TAKE 1 TABLET BY MOUTH EVERY DAY IN THE MORNING 90 Tablet 3 Rosuvastatin Calcium 40 MG Oral Tablet (Crestor) TAKE 1 TABLET IN THE MORNING. 90 Tablet 3 Lisinopril 10 MG Oral Tablet (Prinivil) TAKE 1 TABLET BY MOUTH EVERY DAY IN THE MORNING 90 Tablet 3 Fenofibrate 145 MG Oral Tablet (Tricor) TAKE 1 TABLET BY MOUTH EVERY DAY 30 Tablet 11 FreeStyle Faina 3 Sensor Use as directed. Replace sensor every 14 days 6 Each 3 Trulicity 4.5 MG/0.5ML Subcutaneous Solution Pen-injector (Dulaglutide) Inject 4.5 mg under theskin once a week. DX E11.9 - Medication was sent last month for a 90 day supply with 3 refills, please delete this refill if previous was already received - thank you 6 mL 3 No current facility-administered medications for this visit. Review of patient's allergies indicates: No Known Allergies Review of Systems Skin: Positive for rash. All other systems reviewed and are negative. Objective BP (P) 130/84 (BP Site: Right Arm, BP Position: Sitting) | Pulse (P) 94 | Temp (P) 36.9 C (98.4 F) (Tympanic) | Resp (P) 18 | Ht (P) 1.753 m (5' 9") | Wt (P) 110.2 kg (243 lb) | SpO2 (P) 99% | BMI (P) 35.88 kg/m | BSA (P) 2.32 m Physical Exam Vitals and nursing note reviewed. Constitutional: General: He is not in acute distress. Eyes: Conjunctiva/sclera: Conjunctivae normal. Cardiovascular: Rate and Rhythm: Normal rate. Pulmonary: Effort: Pulmonary effort is normal. No respiratory distress. Skin: General: Skin is warm and dry. Findings: Rash present. Comments: Small annular rash behind left knee, larger flat dry thickened skin localized rash medialthigh Neurological: Mental Status: He is alert and oriented to person, place, and time. ASSESSMENT/PLAN: Rash and nonspecific skin eruption (Primary) Other orders - Triamcinolone Acetonide 0.1 % External Cream (Aristocort); Apply topically to affected area 2 times a day. To affected area. Cool compresses as needed Topical anti-itch as needed Prednisone as ordered till gone Benadryl as needed for itch Follow up with PCP if no improvement Lori GILES documented in this encounter Nursing Notes * Everett Olmedo LPN - 09/10/2022 3:56 PM EDT Jazmyn Pitts is a 51 year old male who presents to walk-in clinic today complaining of Chief Complaint Patient presents with Rash Main Symptoms:Rash on posterior inner thighs and getting bigger Cause: unknown How lon month Tried: Benadryl anti-itch, lotion Pt accompanied by: self documented in this encounter Plan of Treatment Upcoming Encounters Date Type Specialty Care Team Description 10/17/2022 Office Visit Cardiology Linowod Pearce O, DO [address] [place] [address] 12/01/2022 Office Visit Pharmacy Pharmacist2, [address] [address] 12/01/2022 Office Visit Family Medicine Edgardo Ramirez MD [address] [place] [phone] 07/04/2023 Office Visit Dermatology Mehran Morel PA-C [address] [place] [address] Scheduled Procedures Name Priority Associated Diagnoses Date/Ti [...] this encounter Medical Devices Implanted Type Area Supervisor Prop Making Device Identifier Shelf Expiration Date Model / Serial / Lot Suture Steel 6 B&S19 M654g - [id number] Implanted:Qty: 4 on 06/29/2021 by Tirso Gallo [place] [facility] [place] Sternum JN[place] : [employer] 03/08/2026 M654G / / SBBAEH documented as of this encounter Visit Diagnoses Diagnosis Rash and nonspecific skin eruption- Primary Rash and other nonspecific skin eruption documented in this encounter Advance Directives Latest Code Status on File Code Status Date Activated Date Inactivated Comments Full Code 06/29/2021 6:12 PM 07/03/2021 2:48 PM This order reflects the patients wishes and were consensually agreed upon. Care Teams Radiology Administrator Relationship Specialty Start Date End Date Edgardo Ramirez MD [address] [place] [phone] PCP - General Family Medicine 08/21/20 documented as of this encounter
--- OUTSIDE RECORDS SUMMARY | 2023-02-01 08:13 | External Medical Summary ---
Author Name Unknown Address Unknown Organization K01:LAB[facility] [place] - [facility] [address] [place] [address] Laboratory Report Ordering Provider Test Date Status ANDREW HERRING 11/29/2022 07:11:59 Final Observation Date Value Abnormality Reference (Units ) Status BUN 11/29/2022 07:11:59 17 6-20 (mg/dL) Final Creatinine 11/29/2022 07:11:59 1.1 0.6-1.2 (mg/dL) Final Glomerular filtration rate/1.73 sq M.predicted [Volume Rate/Area] in Serum, Plasma or Blood by Creatinine-based formula (CKD-EPI) 11/29/2022 07:11:59 84 >=60 (mL/min) Final eGFR is calculated based on the CKD-EPI 2020 equation SODIUM 11/29/2022 07:11:59 140 135-146 (m mol/L) Final Potassium 11/29/2022 07:11:59 4.6 3.5-5.1 (m mol/L) Final Cl 11/29/2022 07:11:59 102 98-107 (mm ol/L) Final CO2 11/29/2022 07:11:59 20 Below low normal 22- 32 (mmol/L) Final Anion gap 11/29/2022 07:11:59 18 Above high normal 7- 15 (mmol/L) Final Glucose 11/29/2022 07:11:59 135 Above high normal 70 -120 (mg/dL) Final Calcium 11/29/2022 07:11:59 9.5 8.4-10.2 ( mg/dL) Final Performing Location [facility] - [facility] [address] [place] [address]
--- OUTSIDE RECORDS SUMMARY | 2023-02-01 08:13 | External Medical Summary ---
Author Name Unknown Address Unknown Organization K01:LABORATORY [place] [address] [place] [address] Laboratory Report Ordering Provider Test Date Status ANDREW HERRING 11/29/2022 07:11:59 Final Observation Date Value Abnormality Reference (Units) Status Hepatitis B virus surface Ab [Units/volume] in Serum or Plasma by Immunoassay 11/29/2022 07:11:59 8.4 (mIU/mL) Final Hepatitis B virus surface Ab [Presence] in Serum by Immunoassay 11/29/2022 07:11:59 Negative Final HEPATITIS B SURFACE ANTIBODY, INTERPRETATION 11/29/2022 07:11:59 NOT immune to Hepatitis B Virus Final POSITIVE: >=11.5 mIU/mL
INDETERMINATE: 8.5-<11.5 mIU/mL
NEGATIVE: <8.5 mIU/mL Performing Location LAB[facility]ATORY [place] [address] [place] [address]
--- OUTSIDE RECORDS SUMMARY | 2023-02-01 08:13 | External Medical Summary | Summary of Care ---
Author Name Unknown Organization [facility] Address [address] [place] [address] Phone [phone] Care Team Providers Care Dog Food Dough Mixer Name Role Phone Edgardo Leone MD Primary Care P rovider Reason for Visit * Reason Comments eRx-Medication Refill Encounter Details Date Type Department Care Team Description 08/24/2022 Refill Family [address] [phone] Edgardo Leone MD [address] [place] [phone] Mixed dyslipidemia Allergies No known active allergiesdocumented as of this encounter (statuses as of 08/25/2022) Medications Medication Sig Dispensed Refills Start Date [...] Hour (toPROL XL)Indications:Athe rosclerotic heart disease of [place] coronary artery without angina pectoris TAKE 1 [...] Tablet 1 03/14/2022 Active FreeStyle Faina 2 [place] DeviceIndications:T ype 2 diabetes mellitus with hyperglycemia, [...] 24 Hour (Imdur)Indications: Atherosclerotic heart disease of [place] coronary artery without angina pectoris TAKE 1 [...] Replace sensor every 14 days 6 Each 08/02/2022 Active Rosuvastatin Calcium 40 MG Oral Tablet (Crestor)Indication s:Atherosclerotic heart disease of [place] coronary artery without angina pectoris TAKE 1 TABLET IN THE MORNING. 90 Tablet 3 08/10/2022 Active Lisinopril 10 MG Oral Tablet (Prinivil)Indicatio ns:Hypertension goal BP (blood pressure) < 140/90 TAKE 1 TABLET BY MOUTH EVERY DAY IN THE MORNING 90 Tablet 08/24/2022 Active Fenofibrate 145 MG Oral Tablet (Tricor)Indications :Mixed dyslipidemia TAKE 1 TABLET BY MOUTH EVERY DAY 30 Tablet 11 08/25/2022 Active Fenofibrate 145 MG Oral Tablet (Tricor)Indications :Mixed dyslipidemia TAKE 1 TABLET BY MOUTH EVERY DAY 30 Tablet 11 08/11/2021 3 Discontinued documented as of this encounter (statuses as of 08/25/2022) Active Problems Problem Noted Date Chronic pain of left lower extremity Difficulty using continuous positive air way pressure (CPAP) device 06/02/2022 Coronary artery disease of n ative artery of [place] heart with stable angina pectoris 03/04/2022 Enlarged tonsils 08/27/2021 Snoring 08/27/2021 Hx of CABG 07/21/2021 Needle phobia 07/21/2021 Coronary atherosclerosis of [place] coron aung artery 06/29/2021 Hypertension goal BP (blood pressure) < 140/90 03/03/2021 Type 2 diabetes mellitus wit h hyperglycemia, without long-term current use of insulin 08/24/2020 Dyslipidemia, goal LDL below 70 08/25/19 21 Flat foot 08/24/2020 Chronic low back pain with left-sided sc iatica 05/30/2017 Lumbar radiculopathy 05/30/2017 Gastroesophageal reflux disease without esophagitis 05/25/2016 documented as of this encounter (statuses as of 08/25/2022) Resolved Problems Problem Noted Date Resolved Date Prediabetes 03/21/2017 05/30/2017 Overview: Per Prediabetes protocol #1 Obesity, Class I, BMI 30.0-34.9 (see actual BMI) 03/21/2012 05/30/2017 Esophageal reflux 01/05/2010 05/25/2016 Morbid obesity, BMI not known 01/19/2006 documented as of this encounter (statuses as of 08/25/2022) Immunizations Name Administration Dates Next Due COVID-19 mRNA, LNP-s, No Pre serve, 2-Dose Series ([employer]) 12/19/2020 Pneumococcal Conjugate Vaccine, 20-valent (Prevn ar20) [...] encounter Miscellaneous Notes * Telephone Encounter - Te Jaime RPh - 08/25/2022 11:28 AM EDT Signed Prescriptions: Disp Refills Fenofibrate 145 MG Oral Tablet (Tricor) 30 Tab*11 Sig: TAKE 1 TABLET BY MOUTH EVERY DAYAuthorizing Provider: EGDARDO LEONE User: TE JAIME documented in this encounter Plan of Treatment Upcoming Encounters Date Type Specialty Care Team Description 10/17/2022 Office Visit Cardiology Linwood Pearce O, DO [address] [place] [address] 12/01/2022 [address] [address] 12/01/2022 Office Visit Family Medicine Edgardo Leone MD [address] [place] [address] 07/04/2023 Office Visit Dermatology Mehrna Morel PA-C [address] [place] [address] Scheduled Procedures Name Priority Associated Diagnoses Date/Ti [...] this encounter Medical Devices Implanted Type Area 3Rd Mate Device Identifier Shelf Expiration Date Model / Serial / Lot Suture Steel 6 B&S19 M654g - [id number] Implanted:Qty: 4 on 06/29/2021 by Tirso Gallo [place] [facility] [place] Sternum JN[place] : [employer] 03/08/2026 M654G / / SBBAEH documented as of this encounter Visit Diagnoses Diagnosis Mixed dyslipidemia Mixed hyperlipidemia documented in this encounter Advance Directives Latest Code Status on File Code Status Date Activated Date Inactivated Comments Full Code 06/29/2021 6:12 PM 07/03/2021 2:48 PM This order reflects the patients wishes and were consensually agreed upon. Care Teams Dog Food Dough Mixer Relationship Specialty Start Date End Date Edgardo Leone MD [address] [place] [phone] PCP - General Family Medicine 08/21/20 documented as of this encounter
--- OUTSIDE RECORDS SUMMARY | 2023-02-01 08:13 | External Medical Summary | Summary of Care ---
Author Name Unknown Organization [facility] Address [address] [place] [address] Phone [phone] Care Team Providers Care Service Learning Coordinator Name Role Phone Edgardo Leone MD Primary Care P rovider Reason for Visit * Reason Onset Date Comments Medication Refill 08/25/2022 Encounter Details Date Type Department Care Team Description 08/25/2022 Refill Pharmacy [address] [phone] Edgardo Leone MD [address] [place] [address] Type 2 diabetes mellitus with hyperglycemia, [...] Hour (toPROL XL)Indications:Athe rosclerotic heart disease of [place] coronary artery without angina pectoris TAKE 1 [...] Tablet 1 03/14/2022 Active FreeStyle Faina 2 [place] DeviceIndications:T ype 2 diabetes mellitus with hyperglycemia, [...] 24 Hour (Imdur)Indications: Atherosclerotic heart disease of [place] coronary artery without angina pectoris TAKE 1 TABLET BY MOUTH EVERY DAY IN THE MORNING 90 Tablet 3 07/07/2022 Active Trulicity 4.5 MG/0.5ML Subcutaneous Solution Pen-injector (Dulaglutide)Indica tions:Type 2 diabetes mellitus with hyperglycemia, without long-term current use of insulin ([facility]) Inject 4.5 mg under the skin once a week. 6 mL 3 08/02/2022 Active Rosuvastatin Calcium 40 MG Oral Tablet (Crestor)Indication s:Atherosclerotic heart disease of [place] coronary artery without angina pectoris TAKE 1 [...] EVERY DAY 30 Tablet 11 08/25/2022 Active FreeStyle Faina 3 SensorIndications:T ype 2 diabetes mellitus with hyperglycemia, without long-term current use of insulin (HCC) Use as directed. Replace sensor every 14 days 6 Each 3 08/25/2022 Active FreeStyle Faina 3 SensorIndications:T ype 2 diabetes mellitus with hyperglycemia, without long-term current use of insulin (HCC) Use as directed. Replace sensor every 14 days 6 Each 3 08/02/2022 08/25/2022 Discontinue d(Refill) documented as of this encounter (statuses as of 08/25/2022) Active Problems Problem Noted Date Chronic pain of left lower extremity Difficulty using continuous positive air way pressure (CPAP) device 06/02/2022 Coronary artery disease of n ative artery of [place] heart with stable angina pectoris 03/04/2022 Enlarged tonsils 08/27/2021 Snoring 08/27/2021 Hx of CABG 07/21/2021 Needle phobia 07/21/2021 Coronary atherosclerosis of [place] coron aung artery 06/29/2021 Hypertension goal BP [...] mRNA, LNP-s, No Pre serve, 2-Dose Series ([employer]) 12/19/2020 Pneumococcal Conjugate Vaccine, 20-valent (Prevn ar20) [...] Notes * Telephone Encounter - Amelie Cid RPh - 08/25/2022 4:36 PM EDTSigned Prescriptions: Disp Refills FreeStyle Faina 3 Sensor 6 Each 3 Sig: Use as directed. Replace sensor every 14 daysAuthorizing Provider: EDGARDO LEONE User: AMELIE CID documented in this encounter Plan of Treatment Upcoming Encounters Date Type Specialty Care Team Description 10/17/2022 Office Visit Cardiology Linwood Pearce, DO [address] [place] [address] 12/01/2022 Office Visit Pharmacy Pharmacist2, [facility] [address] [place] [address] 12/01/2022 Office Visit Family Medicine Edgardo Leone MD [address] [place] [address] 07/04/2023 Office Visit Dermatology Mehran Morel PA-C [address] [place] [address] [phone] Scheduled Procedures Name Priority Associated Diagnoses Date/Ti [...] this encounter Medical Devices Implanted Type Area Lead Programmer Device Identifier Shelf Expiration Date Model / Serial / Lot Suture Steel 6 B&S19 M654g - [id number] Implanted:Qty: 4 on 06/29/2021 by Tirso Gallo [...] and were consensually agreed upon. Care Teams Service Learning Coordinator Relationship Specialty Start Date End Date Edgardo Leone MD [address] [place] [phone] PCP - General Family Medicine 08/21/20 documented as of this encounter
--- OUTSIDE RECORDS SUMMARY | 2023-02-01 08:13 | External Medical Summary | Summary of Care ---
Author Name Unknown Organization [facility] Address [address] [facility] [address] Phone [phone] Care Team Providers Care Mud Jack Nozzle Worker Name Role Phone Edgardo Ramirez MD Primary Care P [facility] Reason for Visit * Reason Comments Follow Up Encounter Details Date Type Department Care Team Description 11/01/2022 Office Visit Cardiology, [facility] [address] [place] [address] Mary Mancuso CRNP [address] [place] [address] Atherosclerosis of north fork coronary artery of north fork heart without angina pectoris*; Hx of CABG; HTN, goal below 140/90; Dyslipidemia, goal LDL below 70 Allergies No known active allergiesdocumented as of this encounter (statuses as of 11/01/2022) Medications Medication Sig Dispensed Refills Start Date End Date Status Nitroglycerin 0.4 MG Sublingual Tablet Sublingual (Nitrostat)Indicatio ns:Angina of effort Place under the tongue 1 Tablet every 5 minutes as needed for Pain, Chest. up to 3 doses in 15 minutes 25 Tablet 11 06/07/2021 Active Metoprolol Succinate ER 25 MG Oral Tablet Extended Release 24 Hour (toPROL XL)Indications:Ather osclerotic heart disease of north fork coronary artery without angina pectoris TAKE 1 [...] Tablet 1 03/14/2022 Active FreeStyle Faina 2 [place] DeviceIndications:Ty pe 2 diabetes mellitus with hyperglycemia, [...] 24 Hour (Imdur)Indications:A therosclerotic heart disease of north fork coronary artery without angina pectoris TAKE 1 TABLET BY MOUTH EVERY DAY IN THE MORNING 90 Tablet 3 07/07/2022 Active Rosuvastatin Calcium 40 MG Oral Tablet (Crestor)Indications :Atherosclerotic heart disease of north fork coronary artery without angina pectoris TAKE 1 [...] 14 days 6 Each 3 10/25/2022 Active documented as of this encounter (statuses as of 11/01/2022) Active Problems Problem Noted Date Chronic pain of left lower extremity Difficulty using continuous positive air way pressure (CPAP) device 06/02/2022 Coronary 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 03/04/2022 Enlarged tonsils 08/27/2021 Snoring 08/27/2021 Hx of CABG 07/21/2021 Needle phobia 07/21/2021 Coronary atherosclerosis of north fork coron aung artery 06/29/2021 Hypertension goal BP (blood pressure) < 140/90 03/03/2021 Type 2 diabetes mellitus wit h hyperglycemia, without long-term current use of insulin 08/24/2020 Dyslipidemia, goal LDL below 70 08/25/19 21 Flat foot 08/24/2020 Chronic low back pain with left-sided sc iatica 05/30/2017 Lumbar radiculopathy 05/30/2017 Gastroesophageal reflux disease without esophagitis 05/25/2016 documented as of this encounter (statuses as of 11/01/2022) Resolved Problems Problem Noted Date Resolved Date Prediabetes 03/21/2017 05/30/2017 Overview: Per Prediabetes protocol #1 Obesity, Class I, BMI 30.0-34.9 (see actual BMI) 03/21/2012 05/30/2017 Esophageal reflux 01/05/2010 05/25/2016 Morbid obesity, BMI not known 01/19/2006 documented as of this encounter (statuses as of 11/01/2022) Immunizations Name Administration Dates Next Due COVID-19 mRNA, LNP-s, No Pre serve, 2-Dose Series (ShopReply) 12/19/2020 Pneumococcal Conjugate Vaccine, 20-valent (Prevn ar20) [...] Sign Reading Time Taken Comments Blood Pressure 124/80 11/01/2022 3:14 PM EDT Pulse 84 11/01/2022 3:14 PM EDT Temperature - - Respiratory Rate 18 11/01/2022 3:14 PM EDT Oxygen Saturation 96% 11/01/2022 3:14 PM EDT Inhaled Oxygen Concentration - - Weight 109 kg (240 lb 6.4 oz) 11/01/2022 3:14 PM EDT Height - - Body Mass Index 35.5 03/04/2022 4:14 PM EST documented in this encounter Progress Notes * TISHA Knox - 11/01/2022 3:33 PM EDT 11/01/2022 Cardiology Follow Up Primary Box Closing Machine Operator: Dr. Pearce Cardiac Problems: Multivessel CAD s/p CABG x5 ([place] to DIAG. SVG to LAD, RAMUS, OM, PDA), 06/29/[address] Gallo at [facility] HTN Dyslipidemia HPI: Jazmyn Pitts is a 51 year old male presents for routine cardiology follow up. Last seen by Dr. Pearce on 03/24/22 feeling well at that time. Presents today feeling well. Denies any cardiac questions or concerns. Patient feels like he is back to his normal routine. 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 He remains active daily. Denies any chest pain, pressure, palpitations, shortness of breath, PND, pre-syncope, syncope or edema. Blood pressure is at target today. Last lipid panel May 2022 showing elevated triglycerides. He has been working on diet and activity changes which has been challenging as his son is heavily involved with [employer] and [employer]. Reports medication compliance. REVIEW OF SYSTEMS: See HPI for pertinent positives. All others negative other than those noted in the HPI. CONSTITUTIONAL: No change in weight, No weakness, No fatigue and No fevers, No sweats or chills. PULMONARY: No cough, sputum, or hemoptysis, No wheezing, No shortness or breath and No recent change in breathing. CARDIOVASCULAR: No chest pain, No dyspnea on exertion, No edema, No palpitations and No syncope. GASTROINTESTINAL: No abdominal pain, No change in bowel habits, No significant heartburn, No nausea, No vomiting, No diarrhea, No constipation, No blood in stools or black tarry stools. No dysphagia. HEMATOLOGIC: No abnormal bleeding and No bruising. NEUROLOGICAL: Normal balance, No headaches and No weakness. Review of patient's allergies indicates: No Known Allergies Current Outpatient Medications Medication Sig Dispense Refill [...] Tablets by mouth daily. 180 Tablet 1 Omeprazole 20 MG Oral Capsule Delayed Release [...] BY MOUTH EVERY DAY 30 Tablet 11 Triamcinolone Acetonide 0.1 % External Cream (Aristocort) [...] thank you 6 mL 3 FreeStyle Faina 2 [place] Device USE DIRECTED. USE TO MONITOR BLOOD GLUCOSE DAILY 2 Each 5 FreeStyle Faina 3 Sensor Use as directed. Replace sensor every 14 days 6 Each 3 No current facility-administered medications for this visit. Past Medical History: Diagnosis Date Dyslipidemia Type 2 diabetes mellitus (HCC) Family History Problem Relation Age of Onset No Past Hx Mother Diabetes Father Neurological Disorder Brother No Past Hx Brother No Past Hx Son Other (Other) Daughter cleft palate,colapsed lung at Social History Socioeconomic History Marital status: Occupational History Employer: [employer] Tobacco Use Smoking status: Former Packs/day: 0.50 Years: 20.00 Pack years: 10.00 Types: Cigarettes Quit date: 06/02/2021 Years since quittin.4 Smokeless tobacco: Never Vaping Use Vaping Use: Never used Substance and Sexual Activity Alcohol use: Yes Alcohol/week: 1.0 - 2.0 standard drink Types: 1 - 2 Mixed drink(s) containing 1.5 shots of alcohol per week Comment: 4 time month Drug use: No Sexual activity: Yes Partners: Female OBJECTIVE/PHYSICAL EXAMINATION: BP 124/80 (BP Site: Right Arm, BP Position: Sitting, BP Cuff Size: Large) | Pulse 84 | Resp 18 | Wt109 kg (240 lb 6.4 oz) | SpO2 96% | BMI (P) 35.50 kg/m | BSA (P) 2.3 m General: No acute distress. A+Ox3. HEENT: Normocephalic. Atraumatic. PERRL. EOMI. Conjunctiva and sclera clear. NECK: No carotid bruits. No JVD. Carotid upstrokes are brisk. Heart: RRR. S1 and S2 noted. No murmur. No rubs or gallops. PMI non displaced. Lungs: Clear to auscultation. No wheezes.No rhonchi. No rales. Abdomen: Normal bowel sounds. Soft. Nontender. No masses or organomegaly. No abdominal bruits. Extremities: No edema. No clubbing or cyanosis. Pulses: radial=2/4, posterior tibial=2/4, dorsalis pedis = 2/4. NEURO: No focal deficits. PSYCH: Appropriate affect and insight. DATA Labs & Imaging Reviewed Below: Cardiac catheterization report summary June 10, 2021: Summary of Findings 100% mid RCA occlusion filling via left to right collaterals. 40% proximal LAD. (Significant per FFR performed by Dr. Mccarty) Otherwise moderate diffuse CAD. Hemodynamics Rest Ao:101/66/84 Final Ao:111/75/94 LV: 108/3/11 Coronary Anatomy Dominant: Right Left Main (% Stenosis): Normal LAD (% Stenosis): Proximal (40% (significant per FFR performed by Dr. Mccarty)) Circumflex (% Stenosis): Mid (Luminal irregularities, 10%) OM1 (% Stenosis): Mid (Luminal irregularities, 10-20%) and Distal (Luminal irregularities, 10-20%) RCA (% Stenosis): Mid (100%, distal vessel fills via left to right collaterals) Ramus (% Stenosis): Mid (40%) 2D echocardiogram report [facility] 08/19/2021: LVEF 60-65% Mild concentric left ventricular hypertrophy. Mild mitral regurgitation. ASSESSMENT/PLAN: 51 year old year old male 1. Atherosclerotic heart disease of north fork coronary artery without angina pectoris 2. Hx of CABG -doing well from a cardiovascular standpoint. Remains asymptomatic and denies any changes in his functional capacity. -Continue GDMT with ASA 81mg QD, Lisinopril 10mg QD, Toprol xl 25mg QD, and Rosuvastatin 40mg QD. Also continue Imdur 30mg QD - EKG - LIPID PANEL WITH DIRECT LDL IF TG IS HIGH; Future 3. HTN, goal below 140/90 -Well controlled. Continue Toprol xl, Lisinopril and Imdur. - EKG - LIPID PANEL WITH DIRECT LDL IF TG IS HIGH; Future 4. Dyslipidemia, goal LDL below 70 -Continue to work on diet and activity changes. -Recommend increase in overall cardiovascular and strength training for overall health benefit as well as reduction of insulin resistance . -Continue Rosuvastatin 40mg QD and Fenofibrate 145mg QD. Due for lipid panel before next visit. - EKG - LIPID PANEL WITH DIRECT LDL IF TG IS HIGH; Future DISPOSITION: Follow up 9 months or if symptoms worsen/fail to improve. All questions were answered to the patients satisfaction. Patient advised to report to ED with any and all emergencies. The patient agrees to the above plan and will call with additional questions or concerns. TISHA Khan Cardiology, [address] [address] I spent a total of 42 minutes on the date of service in preparation, delivery, and documentation ofthe care provided to Jazmyn Pitts excluding any time spent in the performance of separately billedservices. This chart was completed in part utilizing [employer] Voice Recognition Software. Grammatical errors, random word insertions, pronoun errors, and incomplete sentences are an occasional consequence of this system due to software limitations, ambient noise, and hardware issues. Any formal questions or concerns about the content, text, or information contained within the body of this dictation should be directly addressed to the provider for clarification. documented in this encounter Procedure Notes * Linwood Pearce DO - 11/01/2022 3:30 PM EDTAssociated Order(s): EKG REASON FOR STUDY: yearly recheck CONCLUSIONS: Normal sinus rhythm Left axis deviation Abnormal ECG When compared with ECG of 03-AUG-2021 15:38, No significant change was found Ventricular Rate: 77 Atrial Rate: 77 PA Interval: 170 QRS Duration: 86 QT/QTc: 380/430 ms P-R-T [place]: 39 : -37 : 64 degrees documented in this encounter Nursing Notes * Aleksandra Arauz CMA - 11/01/2022 3:13 PM EDT Examination Room: 1 Name: Jazmyn Pitts Date of : (1970). Reason for Visit: 7M f/u Interim Hospitalization(s): none Problems/Concerns: denies Chest Pain/SOB: denies [facility] Discussed: Not applicable [facility] is a way you can talk to your provider online through e-mail. Would you like to sign up? I can activate it for you? ALREADY ACTIVE Patient was instructed to not get up on the exam table until directed and assisted by their provider; patient is to remain seated in the chair/ wheelchair/ exam table for fall prevention and safety reasons. Patient is aware to have assistance to step down off exam table with personnel. Patient voiced full comprehension of instructions. documented in this encounter Miscellaneous Notes * Result Encounter Note - TISHA Knox - 11/01/2022 4:33 PM EDT Reviewed with patient in office. Continue with plan of care as documented. documented in this encounter Plan of Treatment Upcoming Encounters Date Type Specialty Care Team Description 12/01/2022 Office Visit Pharmacy PharmacistNereyda Rosenberg [address] [address] 12/01/2022 Office Visit Family Medicine Edgardo aRmirez MD [address] [place] [address] 07/04/2023 Office Visit Dermatology Mehran Morel PA-C [address] [place] [address] 08/28/2023 Office Visit Cardiology Mary Mancuso CRNP [address] [place] [address] Scheduled Orders Name Type Priority Associated Diagnoses Orde r Schedule LIPID PANEL WITH DIRECT LDL IF TG IS HIGH Lab Routine Atherosclerosis of north fork coronary artery of north fork heart without angina pectoris HTN, goal below 140/90 Dyslipidemia, goal LDL below 70 Expected: 11/02/2022, Expires: 11/02/2023 Scheduled Procedures Name Priority Associated Diagnoses Date/Ti [...] this encounter Medical Devices Implanted Type Area Bobbin Marker Device Identifier Shelf Expiration Date Model / Serial / Lot Suture Steel 6 B&S19 M654g - [id number] Implanted:Qty: 4 on 06/29/2021 by Tirso Gallo MD at OR [facility] [place] N/A: Sternum JN[place] : [employer] 03/08/2026 [id number] / / [id number] documented as of this encounter Procedures Procedure Name Priority Date/Time Associated Diagnosis Comments PA ECG ROUTINE ECG W/LEAST 12 LDS W/I&R Routine 11/01/2022 3:30 PM EDT Atherosclerosis of north fork coronary artery of north fork heart without angina pectoris Hx of CABG HTN, goal below 140/90 Dyslipidemia, goal LDL below 70 documented in this encounter Results * EKG (11/01/2022 3:30 PM EDT) 11/01/2022 3:30 PM EDT Procedure Note Linwood Pearce DO - 11/01/2022 3:30 PM EDT REASON FOR STUDY: yearly recheck CONCLUSIONS: Normal sinus rhythm Left axis deviation Abnormal ECG When compared with ECG of 03-AUG-2021 15:38, No significant change was found Ventricular Rate: 77 Atrial Rate: 77 PA Interval: 170 QRS Duration: 86 QT/QTc: 380/430 ms P-R-T [place]: 39 : -37 : 64 degrees Mary GILES EKG Performing Organization Address City/State/ZIP [place] Phone Number [facility] documented in this encounter Visit Diagnoses Diagnosis Atherosclerosis of north fork coronary artery of north fork heart without angina pectoris- Primary Hx of CABG Postsurgical aortocoronary bypass status HTN, goal below 140/90 Unspecified essential hypertension Dyslipidemia, goal LDL below 70 Other and unspecified hyperlipidemia documented in this encounter Advance Directives Latest Code Status on File Code Status Date Activated Date Inactivated Comments Full Code 06/29/2021 6:12 PM 07/03/2021 2:48 PM This order reflects the patients wishes and were consensually agreed upon. Care Teams Mud Jack Nozzle Worker Relationship Specialty Start Date End Date Edgardo Ramirez MD [address] [place] [address] [phone] PCP - General Family Medicine 08/21/20 documented as of this encounter"
--- OUTSIDE RECORDS SUMMARY | 2023-02-01 08:13 | External Medical Summary | Summary of Care ---
Author Name Unknown Organization [facility] Address [address] [place] [address] Phone [phone] Care Team Providers Care Acoustic Warfare Analyst Name Role Phone Edgardo Ramirez MD Primary Care P rovider Reason for Visit * Reason Comments Rash Encounter Details Date Type Department Care Team Description 09/10/2022 Convenient Care Visit [address] [phone] Shawna Beaver CRNP [address] [place] [address] Rash and nonspecific skin eruption* Allergies No [...] Hour (toPROL XL)Indications:Ather osclerotic heart disease of [place] pass coronary artery without angina pectoris TAKE 1 [...] Tablet 1 03/14/2022 Active FreeStyle Faina 2 [place] DeviceIndications:Ty pe 2 diabetes mellitus with hyperglycemia, without long-term current use of insulin ([facility]) USE DIRECTED. USE TO MONITOR BLOOD GLUCOSE [...] 24 Hour (Imdur)Indications:A therosclerotic heart disease of false pass coronary artery without angina pectoris TAKE 1 TABLET BY MOUTH EVERY DAY IN THE MORNING 90 Tablet 3 07/07/2022 Active Rosuvastatin Calcium 40 MG Oral Tablet (Crestor)Indications :Atherosclerotic heart disease of false pass coronary artery without angina pectoris TAKE 1 [...] artery disease of n ative artery of false pass heart with stable angina pectoris 03/04/2022 Enlarged tonsils 08/27/2021 Snoring 08/27/2021 Hx of CABG 07/21/2021 Needle phobia 07/21/2021 Coronary atherosclerosis of [place] pass coron aung artery 06/29/2021 Hypertension goal BP [...] mRNA, LNP-s, No Pre serve, 2-Dose Series (Yasound) 12/19/2020 Pneumococcal Conjugate Vaccine, 20-valent (Prevn ar20) [...] pressure) < 140/90 I10 Coronary atherosclerosis of false pass coronary artery I25.10 Hx of CABG Z95.1 Needle phobia F40.298 Enlarged tonsils J35.1 Snoring R06.83 Coronary artery disease of false pass artery of false pass heart with stable angina pectoris (HCC) I25.118 [...] daily. 180 Tablet 1 FreeStyle Faina 2 [place] Device USE DIRECTED. USE TO MONITOR BLOOD [...] O, DO [address] [place] [address] 12/01/2022 Office Visit Pharmacy Pharmacist2, [address] [address] 12/01/2022 Office Visit Family Medicine Edgardo Ramirez MD [address] [place] [phone] 07/04/2023 Office Visit Dermatology Mehran Morel PA-C [address] [place] [phone] Scheduled Procedures Name Priority Associated Diagnoses [...] this encounter Medical Devices Implanted Type Area Computer Graphics Illustrator Device Identifier Shelf Expiration Date Model / Serial / Lot Suture Steel 6 B&S19 M654g - [id number] Implanted:Qty: 4 on 06/29/2021 by Tirso Gallo MD at OR [facility] [place] N/A: Sternum JN[employer] : [employer] 03/08/2026 [...] and were consensually agreed upon. Care Teams Acoustic Warfare Analyst Relationship Specialty Start Date End Date Edgardo Ramirez MD [address] [place] [phone] PCP - General Family Medicine 08/21/20 documented as of this encounter
--- OUTSIDE RECORDS SUMMARY | 2023-02-01 08:13 | External Medical Summary ---
Author Name Unknown Address Unknown Organization K01:[facility] [place] [address] [place] [address] Laboratory Report Ordering Provider Test Date Status ROXANA BOTELLO 11/29/2022 07:11:59 Final Observation Date Value Abnormality Reference (Units ) Status LDL, (direct) 11/29/2022 07:11:59 57 <=129 (mg/dL) Final LDL Cholesterol Reference Ra nges (mg/dL):
<70 Target level for high risk ASCVD patient
<100 Optimal for general population
100-129 Near optimal for general population
130-159 Borderline high
160-189 High
>=190 Very high Performing Location LABORATORY [facility] - [address] [place] [address]
--- OUTSIDE RECORDS SUMMARY | 2023-02-01 08:13 | External Medical Summary ---
Author Name Unknown Address Unknown Organization K01[place] [place] [address] [place] [address] Laboratory Report Ordering Provider Test Date Status ROXANA BOTELLO 11/29/2022 07:11:59 Final Observation Date Value Abnormality Reference (Units ) Status Triglyceride 11/29/2022 07:11:59 204 Above high normal <=174 (mg/dL) Final Triglyceride Reference Range s (mg/dL):
<150 Acceptable
150-174 Borderline high
175-499 High
>=500 Very high Cholesterol 11/29/2022 07:11:59 111 <200 (mg /dL) Final Total Cholesterol Reference Ranges (mg/dL):
<200 Desirable
200-239 Borderline high
>=240 High HDL 11/29/2022 07:11:59 24 Below low normal >39 (mg/dL) Final HDL Cholesterol Reference Ra nges (mg/dL):
>=60 High (Desirable)
<50 Low (Undesirable) For Females
<40 Low (Undesirable) For Males NON-HDL CHOLESTEROL 11/29/2022 07:11:59 87 <=159 (mg/dL) Final Non-HDL Cholesterol Referenc e Range (mg/dL):
<100 Target level for high risk ASCVD patient
<130 Optimal for general population
130-159 Near optimal for general population
160-189 Borderline High
190-219 High
>=220 Very High Performing Location LAB[facility]ATORY [facility] - [address] [place] [address]
--- OUTSIDE RECORDS SUMMARY | 2023-02-01 08:13 | External Medical Summary | Summary of Care ---
Author Name Unknown Organization [facility] Address [address] [place] [address] Phone [phone] Care Team Providers Care Activities Director Name Role Phone Edgardo Leone MD Primary Care P rovider Reason for Visit * Reason Onset Date Comments Medication Refill 09/03/2022 Encounter Details Date Type Department Care Team Description 09/03/2022 Refill Pharmacy [address] [phone] Edgardo Leone MD [address] [place] [address] Type 2 diabetes mellitus with hyperglycemia, without long-term current use of insulin (HCC) Allergies No known active allergiesdocumented as of this encounter (statuses as of 09/05/2022) Medications Medication Sig Dispensed Refills Start Date [...] Hour (toPROL XL)Indications:Athe rosclerotic heart disease of [place] coronary artery without angina pectoris TAKE 1 [...] Tablet 1 03/14/2022 Active FreeStyle Faina 2 [employer] DeviceIndications:T ype 2 diabetes mellitus with hyperglycemia, [...] 24 Hour (Imdur)Indications: Atherosclerotic heart disease of [place] coronary artery without angina pectoris TAKE 1 TABLET BY MOUTH EVERY DAY IN THE MORNING 90 Tablet 3 07/07/2022 Active Rosuvastatin Calcium 40 MG Oral Tablet (Crestor)Indication s:Atherosclerotic heart disease of [place] coronary artery without angina pectoris TAKE 1 [...] 30 Tablet 08/25/2022 Active FreeStyle Faina 3 SensorIndications:T ype [...] thank you 6 mL 3 09/05/2022 Active Trulicity 4.5 MG/0.5ML Subcutaneous Solution Pen-injector (Dulaglutide)Indica tions:Type 2 diabetes mellitus with hyperglycemia, without long-term current use of insulin (HCC) Inject 4.5 mg under the skin once a week. 6 mL 3 08/02/2022 3 Discontinue d(Refill) documented as of this encounter (statuses as of 09/05/2022) Active Problems Problem Noted Date Chronic pain of left lower extremity Difficulty using continuous positive air way pressure (CPAP) device 06/02/2022 Coronary artery disease of n ative artery of [place] heart with stable angina pectoris 03/04/2022 Enlarged tonsils 08/27/2021 Snoring 08/27/2021 Hx of CABG 07/21/2021 Needle phobia 07/21/2021 Coronary atherosclerosis of [place] coron aung artery 06/29/2021 Hypertension goal BP (blood pressure) < 140/90 03/03/2021 Type 2 diabetes mellitus wit h hyperglycemia, without long-term current use of insulin 08/24/2020 Dyslipidemia, goal LDL below 70 08/25/19 21 Flat foot 08/24/2020 Chronic low back pain with left-sided sc iatica 05/30/2017 Lumbar radiculopathy 05/30/2017 Gastroesophageal reflux disease without esophagitis 05/25/2016 documented as of this encounter (statuses as of 09/05/2022) Resolved Problems Problem Noted Date Resolved Date Prediabetes 03/21/2017 05/30/2017 Overview: Per Prediabetes protocol #1 Obesity, Class I, BMI 30.0-34.9 (see actual BMI) 03/21/2012 05/30/2017 Esophageal reflux 01/05/2010 05/25/2016 Morbid obesity, BMI not known 01/19/2006 documented as of this encounter (statuses as of 09/05/2022) Immunizations Name Administration Dates Next Due COVID-19 [...] Notes * Telephone Encounter - Amelie Cid [facility] - 09/05/2022 8:37 AM EDTSigned Prescriptions: Disp Refills Trulicity 4.5 MG/0.5ML Subcutaneous Soluti*6 mL 3 Sig: Inject 4.5 mg under the skin once a week. DX E11.9 - Medication was sent last month for a 90 day supply with 3 refills, please delete this refill if previous was already received - thank youAuthorizing Provider: EDGARDO LEONE User: AMELIE CID * Telephone Encounter - Amelie Cid [facility] - 09/05/2022 8:35 AM EDT Medication was previous denied refills due to previous refills being filled/send in 08/02 - with 90 days supply and 3 refills. Noted that it was resent due to second request, with note that if previous script is on file to delete current script. Confirmed in system that medication was "received" by pharmacy. Amelie Cid, PharmD, [facility] Clinical Pharmacist 09/05/2022, 8:37 AM documented in this encounter Plan of Treatment Upcoming Encounters Date Type Specialty Care Team Description 10/17/2022 Office Visit Cardiology Linwood Pearce O, DO [address] [place] [address] 12/01/2022 Office Visit Pharmacy Pharmacist2, [address] [address] 12/01/2022 Office Visit Family Medicine Edgardo Leone MD [address] [place] [address] 07/04/2023 Office Visit Dermatology Mehran Morel PA-C [address] [place] [address] [phone] Scheduled Procedures Name Priority Associated Diagnoses Date/Ti [...] this encounter Medical Devices Implanted Type Area Plaster Foreman Device Identifier Shelf Expiration Date Model / Serial / Lot Suture Steel 6 B&S19 M654g - [id number] Implanted:Qty: 4 on 06/29/2021 by Tirso Gallo [place] [facility] [place]A: Sternum JNLorenzo : [employer] 03/08/2026 [id number] / / [...] and were consensually agreed upon. Care Teams Activities Director Relationship Specialty Start Date End Date Edgardo Leone MD [address] [place] [phone] PCP - General Family Medicine 08/21/20 documented as of this encounter
--- OUTSIDE RECORDS SUMMARY | 2023-02-01 08:13 | External Medical Summary | Summary of Care ---
Author Name Unknown Organization [facility] Address [address] [facility] [place] [address] Phone [phone] Care Team Providers Care Nail Assembly Machine Operator Name Role Phone Edgardo Ramirez MD Primary Care P [facility] Reason for Visit * Reason Comments eRx-Medication Refill Encounter Details Date Type Department Care Team Description 08/09/2022 Refill Cardiology, [facility] [address] [place] [address] Marixa Zaman CRNP [address] [facility] [place] [address] Atherosclerotic heart disease of [place] coronary artery without angina pectoris Allergies No known active allergiesdocumented as of this encounter (statuses as of 08/10/2022) Medications Medication Sig Dispensed Refills Start Date End Date Status Nitroglycerin 0.4 MG Sublingual Tablet Sublingual (Nitrostat)Indicati ons:Angina of effort (HCC) Place under the tongue 1 Tablet every 5 minutes as needed for Pain, Chest. up to 3 doses in 15 minutes 25 Tablet 06/07/2021 Active Fenofibrate 145 MG Oral Tablet (Tricor)Indications :Mixed dyslipidemia TAKE 1 TABLET BY MOUTH EVERY DAY 30 Tablet 11 08/11/2021 Active Metoprolol Succinate ER 25 MG Oral Tablet Extended Release 24 Hour (toPROL XL)Indications:Athe rosclerotic heart disease of [place] coronary artery without angina pectoris TAKE 1 TABLET BY MOUTH EVERY DAY IN THE MORNING AND BEFORE BEDTIME 30 Tablet 11 11/08/2021 Active Lisinopril 10 MG Oral Tablet (Prinivil)Indicatio ns:Hypertension goal BP (blood pressure) < 140/90 Take 1 Tablet by mouth in the morning. 30 Tablet 5 03/04/2022 Active glipiZIDE ER 5 MG Oral Tablet Extended Release 24 Hour (glipiZIDE XL) Take 2 Tablets by mouth in the morning. 180 Tablet 3 03/04/2022 Active metFORMIN HCl ER 500 MG Oral Tablet Extended Release 24 Hour (Glucophage XR)Indications:Refe rred for medication therapy management Take 2 Tablets by mouth daily. 180 Tablet 1 03/14/2022 Active VitAG CorporationStyle Faina 2 [place] DeviceIndications:T ype 2 diabetes mellitus with hyperglycemia, without long-term current use of insulin ([facility]) USE DIRECTED. USE TO MONITOR BLOOD GLUCOSE [...] 24 Hour (Imdur)Indications: Atherosclerotic heart disease of [place] coronary artery without angina pectoris TAKE 1 TABLET BY MOUTH EVERY DAY IN THE MORNING 90 Tablet 3 07/07/2022 Active Sulfamethoxazole-Tr imethoprim 800-160 MG Oral Tablet (Bactrim DS)Indications:Cell ulitis of left lower extremity Take 1 Tablet by mouth in the morning and 1 Tablet before bedtime. Do all this for 10 days. Until gone.. 20 Tablet 0 08/01/2022 3 Active Trulicity 4.5 MG/0.5ML Subcutaneous Solution Pen-injector [...] Oral Tablet (Crestor)Indication s:Atherosclerotic heart disease of [place] coronary artery without angina pectoris TAKE 1 TABLET IN THE MORNING. 90 Tablet 3 08/10/2022 Active Rosuvastatin Calcium 40 MG Oral Tablet (Crestor) Take by mouth 1 Tablet in the morning. Switch from Lipitor. 90 Tablet 3 08/03/2021 3 Discontinued documented as of this encounter (statuses as of 08/10/2022) Active Problems Problem Noted Date Chronic pain of left lower extremity Difficulty using continuous positive air way pressure (CPAP) device 06/02/2022 Coronary artery disease of n ative artery of [place] heart with stable angina pectoris 03/04/2022 Enlarged tonsils 08/27/2021 Snoring 08/27/2021 Hx of CABG 07/21/2021 Needle phobia 07/21/2021 Coronary atherosclerosis of [place] coron aung artery 06/29/2021 Hypertension goal BP (blood pressure) < 140/90 03/03/2021 Type 2 diabetes mellitus wit h hyperglycemia, without long-term current use of insulin 08/24/2020 Dyslipidemia, goal LDL below 70 08/25/19 21 Flat foot 08/24/2020 Chronic low back pain with left-sided sc iatica 05/30/2017 Lumbar radiculopathy 05/30/2017 Gastroesophageal reflux disease without esophagitis 05/25/2016 documented as of this encounter (statuses as of 08/10/2022) Resolved Problems Problem Noted Date Resolved Date Prediabetes 03/21/2017 05/30/2017 Overview: Per Prediabetes protocol #1 Obesity, Class I, BMI 30.0-34.9 (see actual BMI) 03/21/2012 05/30/2017 Esophageal reflux 01/05/2010 05/25/2016 Morbid obesity, BMI not known 01/19/2006 documented as of this encounter (statuses as of 08/10/2022) Immunizations Name Administration Dates Next Due COVID-19 [...] encounter Miscellaneous Notes * Telephone Encounter - Nasrin Sanches MD - 08/10/2022 4:44 PM EDTSigned Prescriptions: Disp Refills Rosuvastatin Calcium 40 MG Oral Tablet (Cr*90 Tab*3 Sig: TAKE 1 TABLET IN THE MORNING. Authorizing Provider: NASRIN SANCHES * Telephone Encounter - DOMINGO Horton - 08/10/2022 10:08 AM EDTPending Prescriptions: Disp Refills Rosuvastatin Calcium 40 MG Oral Tablet [Ph*90 Tab*3 Sig: TAKE 1 TABLET IN THE MORNING. * Telephone Encounter - DOMINGO Horton - 08/10/2022 9:58 AM EDT Did you pend patient's preferred pharmacy and medication before forwarding?yes Pharmacy: [id number] [address] Pending Prescriptions: Disp Refills Rosuvastatin Calcium 40 MG Oral Tablet (C*90 Tab*3 Sig: TAKE 1 TABLET IN THE MORNING. Last Visit: 03/24/2022 (in office), Visit date not found (telemedicine) Next Visit: 10/17/2022 If no future appointments scheduled, and last appointment is greater than a year ago, please schedule patient for a follow-up appointment Last date the medication was ordered: 08-03-2021 Is this request for a controlled substance?No Urine Drug Screen:No results found for this or any previous visit. Patient Phone Numbers mobile [phone] Labs: Lab Results Component Value Date/Time CREAT 1.2 05/30/2022 07:06 AM CREAT 1.0 02/12/2020 07:37 AM POTASSIUM 4.8 05/30/2022 07:06 AM POTASSIUM 4.4 06/29/2021 06:22 PM POTASSIUM 4.3 02/12/2020 07:37 AM TSH 2.25 06/16/2021 03:48 PM LDLCALC 28 05/30/2022 07:06 AM LDLCALC 02/12/2020 07:37 AM Uninterpretable, recommend direct LDL cholesterol testing. LDLDIRECT 62 08/10/2021 09:09 AM ALT 64 (H) 05/30/2022 07:06 AM ALT 70 (H) 02/12/2020 07:37 AM HGBA1C 6.9 (H) 05/30/2022 07:06 AM HGBA1C 10.1 (H) 02/12/2020 07:37 AM documented in this encounter Plan of Treatment Upcoming Encounters Date Type Specialty Care Team Description 10/17/2022 Office Visit Cardiology Linwood Pearce O, DO [address] [place] [address] 12/01/2022 Office Visit Pharmacy Pharmacist2, [facility] [address] [place] [address] 12/01/2022 Office Visit Family Medicine Edgardo Ramirez MD [address] [place] [address] 07/04/2023 Office Visit Dermatology Mehran Morel PA-C [address] [place] [address] Scheduled Procedures Name Priority Associated Diagnoses [...] this encounter Medical Devices Implanted Type Area Collection Manager Device Identifier Shelf Expiration Date Model / Serial / Lot Suture Steel 6 B&S19 M654g - [id number] Implanted:Qty: 4 on 06/29/2021 by Tirso Gallo MD at [place] [facility] [place] N/A: Sternum JNJ : [employer] 03/08/2026 M654G / / SBBAEH documented as of this encounter Visit Diagnoses Diagnosis Atherosclerotic heart disease of [place] coronary artery without angina pectoris Coronary atherosclerosis of [place] coronary artery documented in this encounter Advance Directives Latest Code Status on File Code Status Date Activated Date Inactivated Comments Full Code 06/29/2021 6:12 PM 07/03/2021 2:48 PM This order reflects the patients wishes and were consensually agreed upon. Care Teams Nail Assembly Machine Operator Relationship Specialty Start Date End Date Edgardo Ramirez MD [address] [place] [id number] PCP - General Family Medicine 08/21/20 documented as of this encounter
--- OUTSIDE RECORDS SUMMARY | 2023-02-01 08:13 | External Medical Summary | Summary of Care ---
Author Name Unknown Organization [facility] Address [address] [place] [address] Phone [phone] Care Team Providers Care Mobile Health Vehicle Operator Name Role Phone Edgardo Leone MD Primary Care P rovider Reason for Visit * Reason Onset Date Comments Medication Refill 10/24/2022 Encounter Details Date Type Department Care Team Description 10/24/2022 Refill Pharmacy [address] [phone] Edgardo Leone MD [address] [place] [address] Type 2 diabetes mellitus with hyperglycemia, [...] Hour (toPROL XL)Indications:Athe rosclerotic heart disease of [place] coronary artery without angina pectoris TAKE 1 [...] Tablet 1 03/14/2022 Active FreeStyle Faina 2 [place] DeviceIndications:T ype 2 diabetes mellitus with hyperglycemia, [...] 24 Hour (Imdur)Indications: Atherosclerotic heart disease of [place] coronary artery without angina pectoris TAKE 1 TABLET BY MOUTH EVERY DAY IN THE MORNING 90 Tablet 3 07/07/2022 Active Rosuvastatin Calcium 40 MG Oral Tablet (Crestor)Indication s:Atherosclerotic heart disease of [place] coronary artery without angina pectoris TAKE 1 [...] 14 days 6 Each 3 10/25/2022 Active FreeStyle Faina 3 SensorIndications:T ype 2 diabetes mellitus with hyperglycemia, without long-term current use of insulin (HCC) Use as directed. Replace sensor every 14 days 6 Each 3 08/25/2022 Discontinue d(Refill) documented as of this encounter (statuses as of 10/25/2022) Active Problems Problem Noted Date Chronic pain of left lower extremity Difficulty using continuous positive air way pressure (CPAP) device 06/02/2022 Coronary artery disease of n ative artery of [place] heart with stable angina pectoris 03/04/2022 Enlarged tonsils 08/27/2021 Snoring 08/27/2021 Hx of CABG 07/21/2021 Needle phobia 07/21/2021 Coronary atherosclerosis of [place] coron aung artery 06/29/2021 Hypertension goal BP [...] Telephone Encounter - Amelie Cid RPh - 10/25/2022 8:00 AM EDTSigned Prescriptions: Disp Refills FreeStyle Faina 3 Sensor 6 Each 3 Sig: Use as directed. Replace sensor every 14 daysAuthorizing Provider: EDGARDO LEONE User: AMELIE CID documented in this encounter Plan of Treatment Upcoming Encounters Date Type Specialty Care Team Description 11/01/2022 Office Visit Cardiology Mary Mancuso CRNP [address] [place] [address] 12/01/2022 Office Visit Pharmacy Pharmacist2, [facility] [address] [place] [address] 12/01/2022 Office Visit Family Medicine Edgardo Leone MD [address] [place] [address] 07/04/2023 Office Visit Dermatology Mehran Morel PA-C [address] [place] [address] Scheduled Procedures Name Priority Associated Diagnoses [...] this encounter Medical Devices Implanted Type Area Barrel Endshaker Adjuster Device Identifier Shelf Expiration Date Model / Serial / Lot Suture Steel 6 B&S19 M654g - [id number] Implanted:Qty: 4 on 06/29/2021 by Tirso Gallo MD at OR [facility] N/A: Sternum JNJ : [employer] [...] and were consensually agreed upon. Care Teams Mobile Health Vehicle Operator Relationship Specialty Start Date End Date Edgardo Leone MD [address] [place] [phone] PCP - General Family Medicine 08/21/20 documented as of this encounter
--- OUTSIDE RECORDS SUMMARY | 2023-02-01 08:13 | External Medical Summary | Summary of Care ---
Author Name Unknown Organization [facility] Address [address] [place] [address] Phone [phone] Care Team Providers Care Ad Taker Name Role Phone Edgardo Ramirez MD Primary Care P rovider Reason for Visit * Reason Comments Outpatient Testing Encounter Details Date Type Department Care Team (Late st Contact Info) Description 11/29/2022 7:50 AM EDT Laboratory Laboratory Patient Service [address] [phone] [facility] [address] [address] Need for hepatitis B vaccination; Atherosclerosis of [place] coronary artery of [place] heart without angina pectoris; HTN, goal below [...] Tablet 1 03/14/2022 Active FreeStyle Faina 2 [place] DeviceIndications:Ty pe 2 diabetes mellitus with hyperglycemia, [...] 24 Hour (Imdur)Indications:A therosclerotic heart disease of [place] coronary artery without angina pectoris TAKE 1 TABLET BY MOUTH EVERY DAY IN THE MORNING 90 Tablet 3 07/07/2022 Active Rosuvastatin Calcium 40 MG Oral Tablet (Crestor)Indications :Atherosclerotic heart disease of [place] coronary artery without angina pectoris TAKE 1 [...] Hour (toPROL XL)Indications:Ather osclerotic heart disease of [place] coronary artery without angina pectoris TAKE 1 TABLET BY MOUTH EVERY DAY IN THE MORNING AND BEFORE BEDTIME 180 Tablet 3 11/07/2022 Active documented as of this encounter (statuses as of 11/29/2022) Active Problems Problem Noted Date Diagnosed Date Chronic pain of left lower extremity 06/02/2022 Difficulty using continuous positive airway pressure (CPAP) device 06/02/2022 Coronary artery disease of n ative artery of [place] heart with stable angina pectoris 03/04/2022 Enlarged tonsils 08/27/2021 Snoring 08/27/2021 Hx of CABG 07/21/2021 Needle phobia 07/21/2021 Coronary atherosclerosis of [place] coronary david ry 06/29/2021 Hypertension goal BP [...] mRNA, LNP-s, No Pre serve, 2-Dose Series (Roambi) 12/19/2020 Pneumococcal Conjugate Vaccine, 20-valent (Prevn ar20) [...] Upcoming Encounters Date Type Department Care Team ([facility] Contact Info) Description 12/01/2022 3:00 PM EDT Office Visit Pharmacy [address] [phone] Pharmacist2, [facility] [address] [address] 12/01/2022 3:50 PM EDT Office Visit Family Practice [address] [phone] Edgardo Ramirez MD [address] [place] [address] 07/04/2023 3:00 PM EDT Office Visit Dermatology [facility] [address] [place] [phone] Mehran Morel PA-C [address] [facility] [place] [address] 08/28/2023 3:30 PM EDT Office Visit Cardiology, [facility] [address] [place] [address] Mary Mancuso CRNP [address] [place] [address] Pending Results Name Type Priority Associated Diagnoses Date /Time HEPATITIS B SURFACE ANTIBODY Lab Routine Need for hepatitis B vaccination 11/29/2022 7:11 AM EDT LIPID PANEL WITH DIRECT LDL IF TG IS HIGH Lab Routine Atherosclerosis of [place] coronary artery of [place] heart without angina pectoris HTN, goal below [...] this encounter Medical Devices Implanted Type Area Operations Team Leader Device Identifier Shelf Expiration Date Model / Serial / Lot Suture Steel 6 B&S19 M654g - [id number] Implanted:Qty: 4 on 06/29/2021 [place] [facility] [place]A: Sternum JNJ : [employer] 03/08/2026 M654G / / SBBAEH documented as of this encounter Visit Diagnoses Diagnosis Need for hepatitis B vaccination Need for prophylactic vaccination and inoculation against viral hepatitis Atherosclerosis of [place] coronary artery of [place] heart without angina pectoris HTN, goal below 140/90 Unspecified essential hypertension Dyslipidemia, goal LDL below 70 Other and unspecified hyperlipidemia documented in this encounter Advance Directives Latest Code Status on File Code Status Date Activated Date Inactivated Comments Full Code 06/29/2021 6:12 PM 07/03/2021 2:48 PM This order reflects the patients wishes and were consensually agreed upon. Care Teams Ad Taker Relationship Specialty Start Date End Date Edgardo Ramirez MD [address] [place] [phone] PCP - General Family Medicine 08/21/20 documented as of this encounter
[2023-02-01 08:42] LABS: Basophils # (auto) 0.04 K/uL (0.00-0.20); Basophils % (auto) 0.4 %; Eosinophils # (auto) 0.01 K/uL (0.00-0.50); Eosinophils % (auto) 0.1 %; Hematocrit (blood only) 50.4 % (42.0-52.0); Hemoglobin 18.4 g/dl (14.0-18.0); Immature Granulocytes # (auto) 0.04 K/uL (0.01-0.20); Immature Granulocytes % (auto) 0.4 %; Lymphocytes # (auto) 0.62 K/uL (1.20-3.40); Lymphocytes % (auto) 5.6 %; Mean Corpuscular Hemoglobin 32.3 pg (25.0-34.0); Mean Corpuscular Hgb Conc 36.5 g/dL (32.0-36.0); Mean Corpuscular Volume 88.4 fL (80.0-100.0); Mean Platelet Volume 10.5 fL (9.4-12.4); Monocytes # (auto) 0.83 K/uL (0.11-0.59); Monocytes % (auto) 7.6 %; Neutrophils # (auto) 9.44 K/uL (1.40-6.50); Neutrophils % (auto) 85.9 %; Platelet Count 160 K/uL (130-400); RDW Coefficient of Variation 12.7 % (11.5-14.5); RDW Standard Deviation 41.1 fL (36.4-46.3); White Blood Count 10.98 K/ul (4.8-10.8)
[2023-02-01 08:46] LABS: Appearance Urine Clear (Clear); Bilirubin Urine Negative (Negative); Blood Urine Negative (Negative); Color Urine Dark Yellow; Glucose Urine UA 3+ (Negative); Ketones Urine 1+ (Negative); Leukocyte Esterase Urine Negative (Negative); Nitrite Urine Negative (Negative); Protein Urine Negative (Negative); Specific Gravity Urine 1.027 (1.000-1.030); Urobilinogen Urine Positive (Negative); pH Urine 6.5 (4.5-7.5)
[2023-02-01 09:04] LABS: Albumin Globulin Ratio 1.6 (0.9-2); Albumin Level 4.6 gm/dl (3.4-5.0); BUN Creatinine Ratio 19.8 (10-20); Bilirubin,Total 2.6 mg/dl (0.2-1.0); Calcium 9.1 mg/dl (8.6-10.3); Creatinine Clr Calc Pharmacy 81.6 ml/min; Est GFR (Non-African American) 64.7 ml/min; Globulin 2.8 gm/dl (2.5-4.0); Potassium 4.8 mmol/L (3.5-5.1); Total Protein 7.4 gm/dl (6.0-8.3)
[2023-02-01 09:08] LABS: Troponin I High Sensitivity 2.5 pg/ml (0-20)
--- NOTE | 2023-02-01 09:10 | Emergency Department Note ---
Impression & Plan Cholecystitis, Acute pancreatitis ED Provider Note NAME: DAISY HENSLEY AGE: 52 SEX: M : 1970 ARRIVES VIA: Walk-In INFORMANT: Patient, ED PROVIDER(S): Beau Garcia MD CHIEF COMPLAINT: Abdominal pain HPI: This is a 52-year-old male presenting for nausea, vomiting abdominal pain. Patient states that last night he began having profuse nausea and vomiting. He noted generalized abdominal pain as well. He notes it radiates to his lower back as well. He denies any shortness of breath or chest pain at this time. No fevers that he reports. Does feel chilled otherwise. No diarrhea, urinary symptoms. ROS: See above HPI for pertinent positives & negatives. A total of 10 systems reviewed and were otherwise negative. PAST MEDICAL HISTORY: See Below PAST SURGICAL HISTORY: See Below FAMILY HISTORY: See Below SOCIAL HISTORY: See Below HOME MEDICATIONS: See Below ALLERGIES: See Below VITALS: See Below PHYSICAL EXAMINATION: General: resting comfortably in no acute distress Head: Normocephalic and atraumatic Eyes: Normal inspection, extraocular muscles intact Ear, nose, throat: Normal external exam Neck: Normal range of motion Respiratory: lungs clear to auscultation bilaterally Cardiovascular: Regular rate/rhythm, no murmur GI: Involuntary guarding, rebound, diffusely tender worse in the epigastrium/right upper quadrant Extremities: nontender, moves all extremities Neuro: The patient awake and alert, appropriately conversive, no focal deficits, symmetric faces Skin: Warm, dry, and intact MEDICAL DECISION MAKING: This is a 52-year-old male presenting for nausea, vomiting and abdominal pain. Patient midepigastric pain, right upper quadrant pain. Nausea with vomiting, diffuse abdominal pain with somewhat involuntary guarding and possible rebound. Concern for intra-abdominal process such as cholecystitis, choledocholithiasis, SBO, pancreatitis, diverticulitis, appendicitis -Lab work is reviewed showing leukocytosis of 10.98, hemoglobin of 18.4, likely some hemoconcentration going on -Otherwise significantly abnormal LFTs to 140s, lipase is abnormal as well 1986, bilirubin 2.6 -Concern for internal process such as cholecystitis, choledocholithiasis, pancreatitis -CT abdomen/pelvis reveals acute interstitial edematous pancreatitis -Cholelithiasis with gallbladder wall thickening, ultrasound ordered -Right upper quadrant consistent with acute cholecystitis -Discussed case with Dr. Bruno who states that because of elevated bilirubin, cholecystitis and pancreatitis, concern for choledocholithiasis and need for ERCP -Discussed with [facility], who sent the patient however there will be a significant delay -Patient given ceftriaxone, Flagyl for broad-spectrum coverage -N.p.o., given fluid resuscitation -[facility] hospitalist service consulted until patient be transferred 24+ hours from now Differential diagnosis: See above ER treatment provided: See below Diagnostics interpreted by me: ECG: ECG independently interpreted by me with normal sinus rhythm, rate of 67, left axis deviation, normal ND, normal QRS, normal QTc, no ST segment elevations consistent with STEMI criteria Cardiac Monitoring: An order was placed for continuous cardiac monitoring. The monitor shows a rate of 73 with sinus rhythm. Laboratory studies: As stated above and show below. Imaging studies: See below. Critical Care Note: I have personally spent 65 minutes of critical care time in the direct management of this patient. This includes bedside care, interpretation of diagnostic studies, and testing, discussion with consultants, patient, and family members, and other required patient management activities. This 65 minutes is in excess of all separately billable procedures. Past Med/Surg History Medical History (Updated 02/01/23 @ 15:32 by Brenna Montgomery PA-C) HTN (hypertension) GERD (gastroesophageal reflux disease) Dyslipidemia Diabetes mellitus, type II CAD (coronary artery disease) Surgical History (Updated 02/01/23 @ 15:32 by Brenna Montgomery PA-C) History of coronary artery bypass graft Social History Smoking Status: Never smoker Hx Alcohol Use: Yes Hx Substance Use: No Preferred Language: Luxembourgish Communication Ability: Effective Air Brake Tester Required: No Beliefs That Will Affect Care: Spiritual Current Living Situation: Spouse Feels Safe at Home: Yes Assistive Devices: None Allergies Allergies Allergy/AdvReac Type Severity Reaction Status Date / Time No Known Allergies Allergy Unknown Verified 06/22/17 10:02 Home Meds Home Medications Medication Instructions Recorded Confirmed aspirin 81 mg capsule 81 mg PO DAILY 06/10/21 02/01/23 metoprolol succinate 25 mg 25 mg PO BID 06/10/21 02/01/23 tablet,extended release 24 hr rosuvastatin 40 mg tablet 40 mg PO DAILY 06/10/21 02/01/23 dulaglutide 4.5 mg/0.5 mL 4.5 mg subcut WK 02/01/23 02/01/23 subcutaneous pen injector (Trulicity) fenofibrate 160 mg tablet 160 mg PO DAILY 02/01/23 02/01/23 glipizide 5 mg tablet, extended 10 mg PO DAILY 02/01/23 02/01/23 release 24 hr lisinopril 10 mg tablet 10 mg PO QAM 02/01/23 02/01/23 metformin 500 mg tablet,extended 1,000 mg PO DAILY 02/01/23 02/01/23 release 24 hr omeprazole 20 mg capsule,delayed 20 mg PO DAILY 02/01/23 02/01/23 release Previous Rx's Medication Instructions Recorded isosorbide mononitrate 30 mg 30 mg PO DAILY #30 tabs 06/10/21 tablet,extended release 24 hr Results & Data (ED) Vital Signs Vital Signs - 24 hr 02/01/23 07:54 02/01/23 08:20 02/01/23 08:25 Temperature 37 C 36.6 C Temperature Source Temporal Artery Scan Oral Pulse Rate 73 68 Pulse Rate [Apical] 72 Respiratory Rate 20 20 Respiratory Effort / Characteristics Non-Labored Spontaneous Non-Labored Spontaneous Respiratory Depth Normal Normal Respiratory Pattern Regular Regular Blood Pressure 158/102 H Blood Pressure [Right Arm] 177/113 H Blood Pressure Mean 120 Blood Pressure Mean [Right Arm] 134 Blood Pressure Position Sitting Blood Pressure Position [Right Arm] Lying Pulse Oximetry 98 95 Oxygen Delivery Method Room Air Room Air Sepsis Recent Fever Within 48 Hours No Sepsis New/Unexplained Change in Mental Status No Sepsis Action Taken by Nursing No Action Required 02/01/23 08:25 02/01/23 10:45 02/01/23 13:15 Temperature Temperature Source Pulse Rate 72 Pulse Rate [Apical] 72 73 Respiratory Rate 20 18 18 Respiratory Effort / Characteristics Non-Labored Spontaneous Non-Labored Spontaneous Respiratory Depth Normal Normal Respiratory Pattern Regular Regular Blood Pressure Blood Pressure [Right Arm] 182/104 H 186/100 H Blood Pressure Mean Blood Pressure Mean [Right Arm] 130 128 Blood Pressure Position Blood Pressure Position [Right Arm] Lying Lying Pulse Oximetry 95 94 94 Oxygen Delivery Method Room Air Room Air Room Air Sepsis Recent Fever Within 48 Hours Sepsis New/Unexplained Change in Mental Status Sepsis Action Taken by Nursing Laboratory Data 02/01/23 08:15 02/01/23 08:15 Lab Results 02/01/23 02/01/23 02/01/23 Range/Units 08:15 08:32 08:34 WBC 10.98 H (4.8-10.8) K/ul RBC 5.70 (4.70-6.10) M/uL Hgb 18.4 H (14.0-18.0) g/dl Hct 50.4 (42.0-52.0) % MCV 88.4 (80.0-100.0) fL MCH 32.3 (25.0-34.0) pg MCHC 36.5 H (32.0-36.0) g/dL RDW Std Deviation 41.1 (36.4-46.3) fL RDW Coeff of Deondre 12.7 (11.5-14.5) % Plt Count 160 (130-400) K/uL MPV 10.5 (9.4-12.4) fL Immature Gran % (Auto) 0.4 % Neut % (Auto) 85.9 % Lymph % (Auto) 5.6 % [place] % (Auto) 7.6 % Eos % (Auto) 0.1 % Baso % (Auto) 0.4 % Neut # (Auto) 9.44 H (1.40-6.50) K/uL Lymph # (Auto) 0.62 L (1.20-3.40) K/uL [place] # (Auto) 0.83 H (0.11-0.59) K/uL Eos # (Auto) 0.01 (0.00-0.50) K/uL Baso # (Auto) 0.04 (0.00-0.20) K/uL Immature Gran # (Auto) 0.04 (0.01-0.20) K/uL Sodium 135 L (136-145) mmol/L Potassium 4.8 (3.5-5.1) mmol/L Chloride 98 (98-107) mmol/L Carbon Dioxide 23 (21-32) mmol/L Anion Gap 14 H (3-11) BUN 25 H (6-23) mg/dl Creatinine 1.26 (0.6-1.4) mg/dl Est Cr Clr Drug Dosing 81.6 ml/min Est GFR ( Amer) 75.0 ml/min Est GFR (Non-Af Amer) 64.7 ml/min BUN/Creatinine Ratio 19.8 (10-20) Glucose 374 H* (70-99(Fasting)) mg/dl POC Glucose 344 H* 392 H* (70-99) mg/dl Lactate (0.4-2.0) mmol/L Calcium 9.1 (8.6-10.3) mg/dl Total Bilirubin 2.6 H (0.2-1.0) mg/dl AST 144 H (13-39) U/L ALT 149 H (7-52) U/L Alkaline Phosphatase 48 (34-104) U/L Troponin I High Sens 2.5 (0-20) pg/ml Total Protein 7.4 (6.0-8.3) gm/dl Albumin 4.6 (3.4-5.0) gm/dl Globulin 2.8 (2.5-4.0) gm/dl Albumin/Globulin Ratio 1.6 (0.9-2) Lipase 1986 H (11-82) U/L Urine Color Urine Appearance (Clear) Urine pH (4.5-7.5) Ur Specific Lincoln (1.000-1.030) Urine Protein (Negative) Urine Glucose (UA) (Negative) Urine Ketones (Negative) Urine Blood (Negative) Urine Nitrite (Negative) Urine Bilirubin (Negative) Urine Urobilinogen (Negative) Ur Leukocyte Esterase (Negative) Adenovirus (PCR) (NotDetected) B. pertussis DNA (PCR) (NotDetected) B.parapertussis DNA PCR (NotDetected) C. pneumoniae DNA (PCR) (NotDetected) Coronavirus OC43 (PCR) (NotDetected) Coronavirus HKU1 (PCR) (NotDetected) Coronavirus 229E (PCR) (NotDetected) SARS-CoV-2 (PCR) (NotDetected) Coronavirus NL63 (PCR) (NotDetected) Human Metapneumovir PCR (NotDetected) Influenza Type A (PCR) (NotDetected) Influenza Type B (PCR) (NotDetected) M. pneumoniae (PCR) (NotDetected) Parainfluenza 1 (PCR) (NotDetected) Parainfluenza 2 (PCR) (NotDetected) Parainfluenza 3 (PCR) (NotDetected) Parainfluenza 4 (PCR) (NotDetected) RSV (PCR) (NotDetected) Entero/Rhino (PCR) (NotDetected) 02/01/23 02/01/23 02/01/23 Range/Units 08:35 08:44 08:56 WBC (4.8-10.8) K/ul RBC (4.70-6.10) M/uL Hgb (14.0-18.0) g/dl Hct (42.0-52.0) % MCV (80.0-100.0) fL MCH (25.0-34.0) pg MCHC (32.0-36.0) g/dL RDW Std Deviation (36.4-46.3) fL RDW Coeff of Deondre (11.5-14.5) % Plt Count (130-400) K/uL MPV (9.4-12.4) fL Immature Gran % (Auto) % Neut % (Auto) % Lymph % (Auto) % [place] % (Auto) % Eos % (Auto) % Baso % (Auto) % Neut # (Auto) (1.40-6.50) K/uL Lymph # (Auto) (1.20-3.40) K/uL [place] # (Auto) (0.11-0.59) K/uL Eos # (Auto) (0.00-0.50) K/uL Baso # (Auto) (0.00-0.20) K/uL Immature Gran # (Auto) (0.01-0.20) K/uL Sodium (136-145) mmol/L Potassium (3.5-5.1) mmol/L Chloride (98-107) mmol/L Carbon Dioxide (21-32) mmol/L Anion Gap (3-11) BUN (6-23) mg/dl Creatinine (0.6-1.4) mg/dl Est Cr Clr Drug Dosing ml/min Est GFR ( Amer) ml/min Est GFR (Non-Af Amer) ml/min BUN/Creatinine Ratio (10-20) Glucose (70-99(Fasting)) mg/dl POC Glucose (70-99) mg/dl Lactate 4.0 H* (0.4-2.0) mmol/L Calcium (8.6-10.3) mg/dl Total Bilirubin (0.2-1.0) mg/dl AST (13-39) U/L ALT (7-52) U/L Alkaline Phosphatase (34-104) U/L Troponin I High Sens (0-20) pg/ml Total Protein (6.0-8.3) gm/dl Albumin (3.4-5.0) gm/dl Globulin (2.5-4.0) gm/dl Albumin/Globulin Ratio (0.9-2) Lipase (11-82) U/L Urine Color Dark Yellow Urine Appearance Clear (Clear) Urine pH 6.5 (4.5-7.5) Ur Specific Lincoln 1.027 (1.000-1.030) Urine Protein Negative (Negative) Urine Glucose (UA) 3+ H (Negative) Urine Ketones 1+ H (Negative) Urine Blood Negative (Negative) Urine Nitrite Negative (Negative) Urine Bilirubin Negative (Negative) Urine Urobilinogen Positive H (Negative) Ur Leukocyte Esterase Negative (Negative) Adenovirus (PCR) Not Detected (NotDetected) B. pertussis DNA (PCR) Not Detected (NotDetected) B.parapertussis DNA PCR Not Detected (NotDetected) C. pneumoniae DNA (PCR) Not Detected (NotDetected) Coronavirus OC43 (PCR) Not Detected (NotDetected) Coronavirus HKU1 (PCR) Not Detected (NotDetected) Coronavirus 229E (PCR) Not Detected (NotDetected) SARS-CoV-2 (PCR) DETECTED A* (NotDetected) Coronavirus NL63 (PCR) Not Detected (NotDetected) Human Metapneumovir PCR Not Detected (NotDetected) Influenza Type A (PCR) Not Detected (NotDetected) Influenza Type B (PCR) Not Detected (NotDetected) M. pneumoniae (PCR) Not Detected (NotDetected) Parainfluenza 1 (PCR) Not Detected (NotDetected) Parainfluenza 2 (PCR) Not Detected (NotDetected) Parainfluenza 3 (PCR) Not Detected (NotDetected) Parainfluenza 4 (PCR) Not Detected (NotDetected) RSV (PCR) Not Detected (NotDetected) Entero/Rhino (PCR) Not Detected (NotDetected) 02/01/23 Range/Units 13:22 WBC (4.8-10.8) K/ul RBC (4.70-6.10) M/uL Hgb (14.0-18.0) g/dl Hct (42.0-52.0) % MCV (80.0-100.0) fL MCH (25.0-34.0) pg MCHC (32.0-36.0) g/dL RDW Std Deviation (36.4-46.3) fL RDW Coeff of Deondre (11.5-14.5) % Plt Count (130-400) K/uL MPV (9.4-12.4) fL Immature Gran % (Auto) % Neut % (Auto) % Lymph % (Auto) % [place] % (Auto) % Eos % (Auto) % Baso % (Auto) % Neut # (Auto) (1.40-6.50) K/uL Lymph # (Auto) (1.20-3.40) K/uL [place] # (Auto) (0.11-0.59) K/uL Eos # (Auto) (0.00-0.50) K/uL Baso # (Auto) (0.00-0.20) K/uL Immature Gran # (Auto) (0.01-0.20) K/uL Sodium (136-145) mmol/L Potassium (3.5-5.1) mmol/L Chloride (98-107) mmol/L Carbon Dioxide (21-32) mmol/L Anion Gap (3-11) BUN (6-23) mg/dl Creatinine (0.6-1.4) mg/dl Est Cr Clr Drug Dosing ml/min Est GFR ( Amer) ml/min Est GFR (Non-Af Amer) ml/min BUN/Creatinine Ratio (10-20) Glucose (70-99(Fasting)) mg/dl POC Glucose 309 H* (70-99) mg/dl Lactate (0.4-2.0) mmol/L Calcium (8.6-10.3) mg/dl Total Bilirubin (0.2-1.0) mg/dl AST (13-39) U/L ALT (7-52) U/L Alkaline Phosphatase (34-104) U/L Troponin I High Sens (0-20) pg/ml Total Protein (6.0-8.3) gm/dl Albumin (3.4-5.0) gm/dl Globulin (2.5-4.0) gm/dl Albumin/Globulin Ratio (0.9-2) Lipase (11-82) U/L Urine Color Urine Appearance (Clear) Urine pH (4.5-7.5) Ur Specific Lincoln (1.000-1.030) Urine Protein (Negative) Urine Glucose (UA) (Negative) Urine Ketones (Negative) Urine Blood (Negative) Urine Nitrite (Negative) Urine Bilirubin (Negative) Urine Urobilinogen (Negative) Ur Leukocyte Esterase (Negative) Adenovirus (PCR) (NotDetected) B. pertussis DNA (PCR) (NotDetected) B.parapertussis DNA PCR (NotDetected) C. pneumoniae DNA (PCR) (NotDetected) Coronavirus OC43 (PCR) (NotDetected) Coronavirus HKU1 (PCR) (NotDetected) Coronavirus 229E (PCR) (NotDetected) SARS-CoV-2 (PCR) (NotDetected) Coronavirus NL63 (PCR) (NotDetected) Human Metapneumovir PCR (NotDetected) Influenza Type A (PCR) (NotDetected) Influenza Type B (PCR) (NotDetected) M. pneumoniae (PCR) (NotDetected) Parainfluenza 1 (PCR) (NotDetected) Parainfluenza 2 (PCR) (NotDetected) Parainfluenza 3 (PCR) (NotDetected) Parainfluenza 4 (PCR) (NotDetected) RSV (PCR) (NotDetected) Entero/Rhino (PCR) (NotDetected) Administered Medications Discontinued Medications Hydromorphone HCl (Hydromorphone Inj 1 Mg/Ml Syringe) 1 mg IV NOW STA Stop: 02/01/23 09:39 Last Admin: 02/01/23 09:42 Dose: 1 mg Documented By: CORNELIO Hydromorphone HCl (Hydromorphone Inj 1 Mg/Ml Syringe) 1 mg IV NOW STA Stop: 02/01/23 13:17 Last Admin: 02/01/23 13:24 Dose: 1 mg Documented By: TNK Sodium Chloride (Nss) 500 mls @ 999 mls/hr IV .Q31M STA Stop: 02/01/23 08:42 Last Infusion: 02/01/23 11:20 Dose: Infused Documented By: Admin: 02/01/23 08:48 Dose: 999 mls/hr Documented By: TNK Sodium Chloride (Nss) 1,000 mls @ 999 mls/hr IV .Q1H1M ONE Stop: 02/01/23 10:19 Last Infusion: 02/01/23 11:20 Dose: Infused Documented By: Admin: 02/01/23 09:47 Dose: 999 mls/hr Documented By: ROMEOK Metronidazole (Flagyl) 500 mg in 100 mls @ 100 mls/hr IV NOW STA; Protocol Stop: 02/01/23 11:57 Last Infusion: 02/01/23 12:30 Dose: Infused Documented By: Admin: 02/01/23 11:17 Dose: 100 mls/hr Documented By: ROMEOK Ceftriaxone Sodium (Rocephin) 2,000 mg in 50 mls @ 100 mls/hr IV NOW STA Stop: 02/01/23 11:27 Last Infusion: 02/01/23 11:58 Dose: Infused Documented By: Admin: 02/01/23 11:17 Dose: 100 mls/hr Documented By: ROMEOK Sodium Chloride (Nss) 1,000 mls @ 999 mls/hr IV .Q1H1M ONE Stop: 02/01/23 14:16 Last Infusion: 02/01/23 14:36 Dose: Infused Documented By: Admin: 02/01/23 13:23 Dose: 999 mls/hr Documented By: ROMEOK Ioversol (Optiray 320 500ml) 91 ml IV ONCE ONE Stop: 02/01/23 09:15 Last Admin: 02/01/23 09:15 Dose: 91 ml Documented By: MADHAV Ondansetron HCl (Ondansetron Inj 2 Mg/Ml 2 Ml Vial) 4 mg IV NOW STA Stop: 02/01/23 09:54 Last Admin: 02/01/23 10:01 Dose: 4 mg Documented By: CORNELIO Imaging Data Radiologist's Impression: Abdomen/Pelvis CT 02/01/23 08:[address] WITH IV CONTRAST CT DOSE: 1610.75 mGy.cm HISTORY: Acute epigastric abdominal pain and tenderness epigastric + generalized tenderness TECHNIQUE: Multiaxial CT images of the abdomen and pelvis were performed following the IV administration of 91 cc of Optiray, A dose lowering technique was utilized adhering to the principles of ALARA. COMPARISON STUDY: Lumbar spine MRI 12/20/2012 FINDINGS: Moderate coronary artery calcifications. Median sternotomy. Mild dependent subsegmental bibasilar atelectasis. No free air. Unremarkable spleen and adrenal glands. Cholelithiasis with equivocal gallbladder wall thickening. No biliary duct dilation. Hepatic steatosis without evidence of cirrhosis. Mild to moderate interstitial and peripancreatic edema with homogeneous enhancement of the pancreatic parenchyma. No pancreatic ductal dilation or acute peripancreatic fluid collection. Small amount of ascites noted within the lesser sac tracking along the duodenum and right anterior pararenal space. There is no hydronephrosis. Symmetric enhancement of the kidneys. Unremarkable prostate. Small fat filled inguinal hernias. Partial distention of the urinary bladder. Atherosclerosis of the aorta without aneurysm. No lymphadenopathy. Mild wall thickening of the duodenum, likely reactive. No bowel obstruction. Colonic diverticulosis. Normal appendix. No acute fracture. Postoperative changes of the lower lumbar spine. IMPRESSION: 1. Findings compatible with acute interstitial edematous pancreatitis. No acute peripancreatic fluid collections or pancreatic biliary ductal dilation. 2. Cholelithiasis with equivocal gallbladder wall thickening. Correlation with right upper quadrant ultrasound recommended. 3. No biliary ductal dilation. 4. Hepatic steatosis. 5. Normal appendix. 6. Colonic diverticulosis. ACT 112: Negative or not required by law. The above report was generated using voice recognition software. It may contain grammatical, syntax or spelling errors. Electronically signed by: Augusto Romero M.D. 02/01/2023 9:48 AM Liver Ultrasound 02/01/23 09:50 US liver CLINICAL HISTORY: Abdominal pain. Evaluate for cholecystitis/choledocholithiasis. COMPARISON STUDY: CT of the abdomen and pelvis performed earlier today. FINDINGS: Hepatic echogenicity is diffusely increased. No hepatic lesions are identified. Liver is mildly enlarged, measuring 18.5 cm in maximal sagittal dimension. The pancreas is obscured by overlying bowel gas. There is no biliary ductal dilatation. The common bile duct measures 6 mm in caliber. No common bile duct calculi are identified although these may be occult by sonography. Multiple gallstones within the gallbladder present. There is mild gallbladder wall thickening and pericholecystic fluid. Sonographic Nixon sign was reported. IMPRESSION: 1. Cholelithiasis with mild gallbladder wall thickening, pericholecystic fluid and sonographic Nixon sign. By sonography, the findings suggest acute cholecystitis. Nuclear medicine hepatobiliary scan could be obtained for further evaluation if indicated. 2. No biliary ductal dilatation. No common bile duct calculi identified although these may be occult by sonography. 3. Obscured pancreas due to overlying bowel gas. ACT 112: Negative or not required by law. Electronically signed by: Surinder Penny M.D. 02/01/2023 10:52 AM Discharge Plan Visit Data Chief Complaint: Abdominal Pain Stated Complaint: SEVERE ABDOMINAL PAIN,VOMITING ED Provider: Beau Garcia Discharge Problem: Cholecystitis, Acute pancreatitis Patient Disposition: Transfer Acute Care Hospital Forms Stand Alone Forms: My [facility] Prescriptions Prescriptions: No Action rosuvastatin 40 mg Tablet 40 mg PO DAILY aspirin 81 mg Capsule 81 mg PO DAILY metoprolol succinate 25 mg Tablet Extended Release 24 Hr 25 mg PO BID isosorbide mononitrate 30 mg tablet extended release 24 hr 30 mg PO DAILY Qty: 30 2RF glipizide 5 mg tablet extended release 24hr 10 mg PO DAILY lisinopril 10 mg tablet 10 mg PO QAM omeprazole 20 mg capsule,delayed release(DR/EC) 20 mg PO DAILY metformin 500 mg tablet extended release 24 hr 1,000 mg PO DAILY fenofibrate 160 mg tablet 160 mg PO DAILY Trulicity 4.5 mg/0.5 mL pen injector 4.5 mg SUBCUT WK Rx Instructions: On Monday Referrals Referrals: Edgardo Peña MD [Primary Care Provider] -
[2023-02-01] MEDS ORDERED: OPTIRAY 320 500ml IV ONE (09:14)
[2023-02-01] MEDS ORDERED: SODIUM CHLORIDE 0.9% 1,000 ML IV ONE ×2 (09:19→13:16)
[2023-02-01] MEDS ORDERED: HYDROmorphone INJ 1 MG/ML SYRINGE IV STA ×3 (09:38→16:59)
[2023-02-01 09:47] LABS: Adenovirus PCR Not Detected (NotDetected); Bordetella parapertussis PCR Not Detected (NotDetected); Bordetella pertussis PCR Not Detected (NotDetected); Chlamydia pneumoniae PCR Not Detected (NotDetected); Coronavirus 229E PCR Not Detected (NotDetected); Coronavirus HKU1 PCR Not Detected (NotDetected); Coronavirus NL63 PCR Not Detected (NotDetected); Coronavirus OC43PCR Not Detected (NotDetected); Human Metapneumovirus PCR Not Detected (NotDetected); Influenza A PCR Not Detected (NotDetected); Influenza B PCR Not Detected (NotDetected); Mycoplasma pneumoniae PCR Not Detected (NotDetected); Parainfluenza Virus 1 PCR Not Detected (NotDetected); Parainfluenza Virus 2 PCR Not Detected (NotDetected); Parainfluenza Virus 3 PCR Not Detected (NotDetected); Parainfluenza Virus 4 PCR Not Detected (NotDetected); Respiratory Syncytial VirusPCR Not Detected (NotDetected); Rhinovirus/Enterovirus PCR Not Detected (NotDetected)
--- NOTE | 2023-02-01 09:49 | CT Scan Report ---
ABDOMEN AND PELVIS CT WITH IV CONTRAST CT DOSE: 1610.75 mGy.cm HISTORY: Acute epigastric abdominal pain and tenderness epigastric + generalized tenderness TECHNIQUE: Multiaxial CT images of the abdomen and pelvis were performed following the IV administrat ion of 91 cc of Optiray, A dose lowering technique was utilized adhering to the principles of ALARA. COMPARISON STUDY: Lumbar spine MRI 12/20/2012 FINDINGS: Moderate coronary artery calcifications. Median sternotomy. Mild dependent subsegmental bib asilar atelectasis. No free air. Unremarkable spleen and adrenal glands. Cholelithiasis with equivoca l gallbladder wall thickening. No biliary duct dilation. Hepatic steatosis without evidence of cirrho sis. Mild to moderate interstitial and peripancreatic edema with homogeneous enhancement of the pancr eatic parenchyma. No pancreatic ductal dilation or acute peripancreatic fluid collection. Small amoun t of ascites noted within the lesser sac tracking along the duodenum and right anterior pararenal spa ce. There is no hydronephrosis. Symmetric enhancement of the kidneys. Unremarkable prostate. Small fat fi lled inguinal hernias. Partial distention of the urinary bladder. Atherosclerosis of the aorta withou t aneurysm. No lymphadenopathy. Mild wall thickening of the duodenum, likely reactive. No bowel obstruction. Colonic diverticulosis. Normal appendix. No acute fracture. Postoperative changes of the lower lumbar spine. IMPRESSION: 1. Findings compatible with acute interstitial edematous pancreatitis. No acute peripancreatic fluid collections or pancreatic biliary ductal dilation. 2. Cholelithiasis with equivocal gallbladder wall thickening. Correlation with right upper quadrant u ltrasound recommended. 3. No biliary ductal dilation. 4. Hepatic steatosis. 5. Normal appendix. 6. Colonic diverticulosis. ACT 112: Negative or not required by law. The above report was generated using voice recognition software. It may contain grammatical, syntax o r spelling errors. Electronically signed by: Augusto Romero M.D. 02/01/2023 9:48 AM
[2023-02-01 09:51] LABS: Coronavirus CoV-2 (COVID19)PCR DETECTED (NotDetected)
[2023-02-01] MEDS ORDERED: ONDANSETRON INJ 2 MG/ML 2 ML VIAL IV STA (09:53)
--- NOTE | 2023-02-01 10:54 | Ultrasound Report ---
US liver CLINICAL HISTORY: Abdominal pain. Evaluate for cholecystitis/choledocholithiasis. COMPARISON STUDY: CT of the abdomen and pelvis performed earlier today. FINDINGS: Hepatic echogenicity is diffusely increased. No hepatic lesions are identified. Liver is mi ldly enlarged, measuring 18.5 cm in maximal sagittal dimension. The pancreas is obscured by overlying bowel gas. There is no biliary ductal dilatation. The common bile duct measures 6 mm in caliber. No common bile duct calculi are identified although these may be occult by sonography. Multiple gallston es within the gallbladder present. There is mild gallbladder wall thickening and pericholecystic flui d. Sonographic Nixon sign was reported. IMPRESSION: 1. Cholelithiasis with mild gallbladder wall thickening, pericholecystic fluid and sonographic Nixon sign. By sonography, the findings suggest acute cholecystitis. Nuclear medicine hepatobiliary scan could be obtained for further evaluation if indicated. 2. No biliary ductal dilatation. No common bile duct calculi identified although these may be occult by sonography. 3. Obscured pancreas due to overlying bowel gas. ACT 112: Negative or not required by law. Electronically signed by: Surinder Penny M.D. 02/01/2023 10:52 AM
[2023-02-01] MEDS ORDERED: cefTRIAXone SODIUM 2,000 MG/50 ML BAG IV STA (10:58)
[2023-02-01] MEDS ORDERED: metroNIDAZOLE 500 MG/100 ML BAG IV STA (10:58)
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
[2023-02-01] MEDS ORDERED: NovoLIN-R INSULIN PER UNIT CHARGE IV STA (15:07)
[2023-02-01] MEDS ORDERED: METOPROLOL SUCC 25MG EXT REL TAB PO STA (15:12)
--- NOTE | 2023-02-01 15:14 | Electrocardiogram Report ---
Test Reason : Blood Pressure : / mmHG Vent. Rate : 067 BPM Atrial Rate : 067 BPM P-R Int : 168 ms QRS Dur : 088 ms QT Int : 418 ms P-R-T Axes : 026 -43 065 degrees QTc Int : 441 ms Normal sinus rhythm Left axis deviation Nonspecific T wave abnormality Abnormal ECG When compared with ECG of 19-JUN-2017 15:39, Nonspecific T wave abnormality, worse in Anterolateral leads Confirmed by Adonay Sauceda ([id number]) on 02/01/2023 3:13:52 PM Referred By: REFERRED SELF Confirmed By:Benny Sauceda
[2023-02-01] MEDS ORDERED: ISOSORBIDE MONO EXTENDED REL 30 MG TABCR PO ONE (15:15)
[2023-02-01] MEDS ORDERED: lisinopril 10 MG TAB PO ONE (15:15)
--- NOTE | 2023-02-01 16:14 | XRay Report ---
XR chest 1V portable CLINICAL HISTORY: covid COMPARISON STUDY: Chest radiograph June 19, 2017. FINDINGS: Lung volumes are mildly diminished. There is no pneumothorax or pleural effusion. Linear bi lateral densities favor atelectasis. There is no consolidation to suggest pneumonia. There are median sternotomy wires. Size of the heart is normal. Mediastinal contours are unremarkable. IMPRESSION: No acute cardiopulmonary findings. ACT 112: Negative or not required by law. Electronically signed by: Surinder Penny M.D. 02/01/2023 4:13 PM
[2023-02-01] MEDS ORDERED: GLUCOSE 10 TAB/TUBE PO PRN (18:06)
[2023-02-01] MEDS ORDERED: DEXTROSE 50% 50 ML SYRINGE IV PRN (18:06)
[2023-02-01] MEDS ORDERED: CARBOHYDRATES FOR HYPOGLYCEMIA PO PRN (18:06)
[2023-02-01] MEDS ORDERED: ONDANSETRON INJ 2 MG/ML 2 ML VIAL IV PRN (18:06)
[2023-02-01] MEDS ORDERED: GLUCAGON FOR INJ 1 MG VIAL SQ PRN (18:06)
[2023-02-01] MEDS ORDERED: GLUCOSE 40% GEL 15 GM TUBE PO PRN (18:06)
[2023-02-01] MEDS ORDERED: PHARMACY GLYCEMIC MGMT CONSULT PRN (18:06)
[2023-02-01] MEDS ORDERED: PIPERACILLIN/TAZOBACTAM 4.5 GM/100 ML BAG IV STA (18:14)
[2023-02-01] MEDS: LACTATED RINGER'S 1,000 ML IV SCH ×2 (19:41→23:59)
[2023-02-01] MEDS: INSULIN ASPART PER UNIT CHARGE SC SCH ×2 (19:47→23:59)
[2023-02-01] MEDS: HYDROmorphone INJ 0.5 MG/0.5 ML SYR IV PRN (20:42)
[2023-02-01] MEDS: METOPROLOL SUCC 25MG EXT REL TAB PO SCH (20:44)
[2023-02-01] MEDS: PANTOprazole 40 MG in SYRINGE 0 ML IV SCH (20:44)
[2023-02-01] MEDS ORDERED: LANTUS PER UNIT CHARGE SQ SCH (21:00)
[2023-02-01] MEDS: ACETAMINOPHEN 1,000 MG/100 ML VIAL IV PRN (23:14)
[2023-02-01] MEDS: PIPERACILLIN/TAZOBACTAM 4.5 GM in DEXTROSE 5% MINI-B 100 ML IV SCH (23:45)
[2023-02-02] MEDS: HYDROmorphone INJ 0.5 MG/0.5 ML SYR IV PRN ×5 (04:58→21:05)
[2023-02-02] MEDS: LACTATED RINGER'S 1,000 ML IV SCH ×3 (05:28→21:02)
[2023-02-02] MEDS: INSULIN ASPART PER UNIT CHARGE SC SCH ×4 (05:35→23:21)
[2023-02-02 07:30] LABS: Basophils # (auto) 0.04 K/uL (0.00-0.20); Basophils % (auto) 0.3 %; Eosinophils # (auto) 0.11 K/uL (0.00-0.50); Eosinophils % (auto) 0.7 %; Hematocrit (blood only) 48.3 % (42.0-52.0); Hemoglobin 16.5 g/dl (14.0-18.0); Immature Granulocytes % (auto) 0.7 %; Lymphocytes # (auto) 0.83 K/uL (1.20-3.40); Lymphocytes % (auto) 5.6 %; Mean Corpuscular Hemoglobin 31.5 pg (25.0-34.0); Mean Corpuscular Hgb Conc 34.2 g/dL (32.0-36.0); Mean Corpuscular Volume 92.2 fL (80.0-100.0); Mean Platelet Volume 10.6 fL (9.4-12.4); Monocytes # (auto) 1.35 K/uL (0.11-0.59); Monocytes % (auto) 9.1 %; Neutrophils # (auto) 12.35 K/uL (1.40-6.50); Neutrophils % (auto) 83.6 %; Platelet Count 133 K/uL (130-400); RDW Coefficient of Variation 13.2 % (11.5-14.5); Red Blood Count 5.24 M/uL (4.70-6.10); White Blood Count 14.78 K/ul (4.8-10.8)
[2023-02-02 07:40] LABS: Albumin Globulin Ratio 1.7 (0.9-2); Albumin Level 3.8 gm/dl (3.4-5.0); BUN Creatinine Ratio 21.3 (10-20); Bilirubin,Total 0.9 mg/dl (0.2-1.0); Calcium 7.6 mg/dl (8.6-10.3); Creatinine Clr Calc Pharmacy 109.3 ml/min; Est GFR (African American) 106.9 ml/min; Est GFR (Non-African American) 92.2 ml/min; Globulin 2.3 gm/dl (2.5-4.0); Potassium 4.5 mmol/L (3.5-5.1); Total Protein 6.1 gm/dl (6.0-8.3)
[2023-02-02] MEDS: PIPERACILLIN/TAZOBACTAM 4.5 GM in DEXTROSE 5% MINI-B 100 ML IV SCH ×3 (08:25→23:17)
[2023-02-02] MEDS: ACETAMINOPHEN 1,000 MG/100 ML VIAL IV PRN (08:25)
[2023-02-02] MEDS: DULoxetine HCL 30 MG CAP PO SCH (08:28)
[2023-02-02] MEDS: ISOSORBIDE MONO EXTENDED REL 30 MG TABCR PO SCH (08:28)
[2023-02-02] MEDS: lisinopril 10 MG TAB PO SCH (08:28)
[2023-02-02] MEDS: METOPROLOL SUCC 25MG EXT REL TAB PO SCH ×2 (08:29→21:20)
[2023-02-02] MEDS ORDERED: LANTUS PER UNIT CHARGE SQ ONE ×2 (09:00)
[2023-02-02] MEDS: PANTOprazole 40 MG in SYRINGE 0 ML IV SCH (11:01)
--- NOTE | 2023-02-02 12:49 | Pharmacy Report ---
Pharmacy Glycemic Short Note 2 - Date of Service February 02, 2023 - Glycemic Short BSG Results (Last 24 hours): 02/01/23 02/01/23 02/01/23 13:22 16:34 18:33 Glucose POC Glucose 309 H* 292 H 321 H* 02/01/23 02/01/23 02/02/23 20:51 23:54 05:32 Glucose POC Glucose 320 H* 241 H 202 H 02/02/23 02/02/23 02/02/23 06:53 07:18 11:10 Glucose 230 H POC Glucose 203 H 212 H OUTPATIENT ANTIDIABETIC REGIMEN: * Glipizide 10 mg daily * Metformin 1000 mg daily * Trucility 4.5 mg SQ weekly ASSESSMENT: * Mr Gisselle is a 52 y/o M with a PMH of T2DM who presents with abdominal pain. He is currently pending transfer to [facility]. * BSGs today are 202-212 mg/dL. Patient received 15 units of Lantus last night. * Lantus 10 units this morning (weight-based stress 1) plus scale tonight. Conservative dosing due to NPO status. * Novolog weight-based stress of 2. PLAN FOR INPATIENT GLYCEMIC CONTROL: * Hold outpatient oral diabetes medications * Basal insulin * Lantus 10 units SQ BID (15 units if BSG > 200 and hold if BSG < 150) * Bolus insulin * NovoLog per scale ACHS or Q6hrs while NPO * Goal Range: Low 110 mg/dL - High 140 mg/dL * Correction Factor: 20 mg/dL/unit * Nutritional / Prandial insulin per carb ratio of 1 unit per 7 grams CHO consumed
--- NOTE | 2023-02-02 15:23 | Hospitalist Progress Note ---
Date of Service February 02, 2023 Assessment & Plan (1) Pancreatitis: (2) Cholecystitis: (3) Elevated liver function tests: (4) Elevated lactic acid level: Plan: Acute Pancreatitis Likely choledocholithiasis Acute Cholecystitis per admitting service notes with addendum: Patient is a 52-year-old male with PMH HTN, dyslipidemia, CAD s/p CABG, DM II, GERD presented to ER with complaint of upper abdominal pain, nausea, vomiting x 1 day. Patient afebrile, P: 73, R: 20, BP 158/102, 98% on room air. WBC: 10.9, T. bili: 2.6, AST: 144, ALT: 149, alk phos: 48, lipase 1986 CT abdomen pelvis: 1. Findings compatible with acute interstitial edematous pancreatitis. No acute peripancreatic fluid collections or pancreatic biliary ductal dilation. 2. Cholelithiasis with equivocal gallbladder wall thickening. Correlation with right upper quadrant ultrasound recommended. 3. No biliary ductal dilation. 4. Hepatic steatosis. 5. Normal appendix. 6. Colonic diverticulosis. Liver ultrasound: Cholelithiasis with mild gallbladder wall thickening, pericholecystic fluid and sonographic Nixon sign. By sonography, the findings suggest acute cholecystitis. No biliary ductal dilatation. No common bile duct calculi identified although these may be occult by sonography. Obscured pancreas due to overlying bowel gas. Patient had received 2500ml NSS in ER and was given Rocephin, Flagyl, 2mg total Dilaudid Upon receiving call for admission patient was assessed at 14:20 and I performed tissue perfusion assessment and has normal capillary refill, O2 sat 94% on RA, HR: 74, Lungs clear to auscultation, peripheral pulses intact bilaterally, skin pink and warm and vitals:Pulse 74, R: 18, BP 185/103, 94% on room air. Repeat lactate was not completed so has been ordered and is pending Trend lactate Unfortunately do not have ERCP coverage currently. Patient accepted at [facility]. Accepting physician is Dr Prabhu Hong, however awaiting bed availability LR @200ml/hr Zosyn Tylenol, Dilaudid as needed pain Patient accepted for transfer at [facility]. Accepting physician Dr. Prabhu hong. Awaiting bed opening 02/02 HD stable afebrile still having abdominal pain Lipase and LFTs trending continue IV LR NPO except meds, sips IV Zosyn Pain medications awaiting bed at [facility] (5) COVID-19: Plan: 2 to 3 days ago with fatigue, yesterday with sore throat. Denies shortness of breath, chest pain + SARS-CoV-2 PCR CXR: No acute infiltrate per my interpretation. No acute cardiopulmonary findings per radiologist read Is not hypoxic Isolation precautions Incentive spirometry 02/02 o2 sats > 90% continue supportive care (6) Hyperglycemia: (7) Diabetes mellitus, type II: Plan: Random glucose 374 A1c: 6.9 on 12/26/2022 Hold home glipizide, metformin Start basal bolus insulin Glycemic pharmacy consult for assistance with glycemic management (8) HTN (hypertension): Plan: Hypertensive in ER. Likely secondary to missed BPM meds and pain Continue metoprolol succinate, lisinopril, isosorbide BP improving (9) Dyslipidemia: Plan: Hold rosuvastatin and fenofibrate for now (10) CAD (coronary artery disease): Plan: S/p CABG Continue metoprolol succinate, isosorbide Hold aspirin for now pending procedure (11) GERD (gastroesophageal reflux disease): Plan: Will switch home oral PPI to IV for now DVT Prophylaxis SCDs for now Admission and Anticipated Discharge Date Admission Date: February 01, 2023 Subjective ff up for acute pancreatitis, etc seen resting in bed, comfortable states he is still having abdominal pain, bloating pain medications helping but not lasting long enough no chest pain, dyspnea, palpitations, dizziness no fever/chills no other symptoms Review of Systems Review of Systems: all noted and negative except for above Physical Exam Physical Exam: General- oriented x 3, not in distress, speaks in sentences with no effort or accessory muscle use Eyes- anicteric Neck- no JVD Lungs- clear breath sounds bilaterally, no rales/wheezes Heart- normal rate, regular rhythm; no murmurs Abdomen- normal bowel sounds, moderately distended, soft, nontender Extremities- no pretibial edema, no calf tenderness Neuro- alert, oriented x 3; no gross focal neurologic deficits Skin- warm & dry Results & Data Results & Data Vital Signs (Past 12 Hours) Vital Signs Temp Pulse Pulse Resp BP Pulse Ox O2 Del Method 02/02/23 10:57 37.1 C 82 18 142/84 H 91 Room Air 02/02/23 09:03 73 02/02/23 08:32 75 18 149/88 H 92 Room Air 02/02/23 03:48 36.6 C 74 18 136/80 92 Room Air all noted and reviewed including below
[2023-02-02] MEDS: LANTUS PER UNIT CHARGE SQ SCH (21:02)
[2023-02-03] MEDS: HYDROmorphone INJ 0.5 MG/0.5 ML SYR IV PRN ×7 (00:42→23:07)
[2023-02-03] MEDS: LACTATED RINGER'S 1,000 ML IV SCH ×3 (03:07→23:55)
[2023-02-03] MEDS: INSULIN ASPART PER UNIT CHARGE SC SCH ×4 (05:54→23:50)
[2023-02-03] MEDS: PIPERACILLIN/TAZOBACTAM 4.5 GM in DEXTROSE 5% MINI-B 100 ML IV SCH ×3 (07:53→23:46)
[2023-02-03 08:43] LABS: Basophils # (auto) 0.03 K/uL (0.00-0.20); Basophils % (auto) 0.3 %; Eosinophils # (auto) 0.03 K/uL (0.00-0.50); Eosinophils % (auto) 0.3 %; Hematocrit (blood only) 43.3 % (42.0-52.0); Hemoglobin 15.5 g/dl (14.0-18.0); Immature Granulocytes # (auto) 0.07 K/uL (0.01-0.20); Immature Granulocytes % (auto) 0.6 %; Lymphocytes # (auto) 0.79 K/uL (1.20-3.40); Lymphocytes % (auto) 6.7 %; Mean Corpuscular Hgb Conc 35.8 g/dL (32.0-36.0); Mean Corpuscular Volume 89.5 fL (80.0-100.0); Mean Platelet Volume 10.3 fL (9.4-12.4); Monocytes # (auto) 0.99 K/uL (0.11-0.59); Monocytes % (auto) 8.4 %; Neutrophils # (auto) 9.88 K/uL (1.40-6.50); Neutrophils % (auto) 83.7 %; Platelet Count 122 K/uL (130-400); RDW Coefficient of Variation 13.2 % (11.5-14.5); RDW Standard Deviation 43.7 fL (36.4-46.3); Red Blood Count 4.84 M/uL (4.70-6.10); White Blood Count 11.79 K/ul (4.8-10.8)
[2023-02-03 08:50] LABS: Albumin Level 3.5 gm/dl (3.4-5.0); BUN Creatinine Ratio 18.1 (10-20); Bilirubin Direct 0.3 mg/dl (0-0.2); Calcium 7.6 mg/dl (8.6-10.3); Creatinine Clr Calc Pharmacy 125.2 ml/min; Est GFR (African American) 116.4 ml/min; Est GFR (Non-African American) 100.5 ml/min; Potassium 3.4 mmol/L (3.5-5.1); Total Protein 6.1 gm/dl (6.0-8.3)
[2023-02-03] MEDS ORDERED: STAT IV/IM STA (09:05)
[2023-02-03] MEDS ORDERED: POTASSIUM CHLORIDE 20 MEQ/15 ML UDC PO STA (09:05)
[2023-02-03] MEDS ORDERED: CALCIUM GLUCONATE 10% 1,000 MG in SODIUM CHLOR 0.9% MINI-B 50 ML IV ONE (09:30)
[2023-02-03] MEDS: ISOSORBIDE MONO EXTENDED REL 30 MG TABCR PO SCH (09:31)
[2023-02-03] MEDS: lisinopril 10 MG TAB PO SCH (09:31)
[2023-02-03] MEDS: DULoxetine HCL 30 MG CAP PO SCH (09:31)
[2023-02-03] MEDS: METOPROLOL SUCC 25MG EXT REL TAB PO SCH ×2 (09:31→21:09)
[2023-02-03] MEDS: LANTUS PER UNIT CHARGE SQ SCH ×2 (09:32→21:10)
[2023-02-03] MEDS: ACETAMINOPHEN 1,000 MG/100 ML VIAL IV PRN (09:32)
[2023-02-03] MEDS: PANTOprazole 40 MG in SYRINGE 0 ML IV SCH (10:04)
--- NOTE | 2023-02-03 13:42 | Pharmacy Report ---
Pharmacy Glycemic Short Note 2 - Date of Service February 03, 2023 - Glycemic Short BSG Results (Last 24 hours): 02/02/23 02/02/23 02/03/23 16:18 23:17 05:38 Glucose POC Glucose 196 H 178 H 166 H 02/03/23 07:51 Glucose 185 H POC Glucose OUTPATIENT ANTIDIABETIC REGIMEN: * Glipizide 10 mg daily * Metformin 1000 mg daily * Trucility 4.5 mg SQ weekly ASSESSMENT: 02/03/23 * BSGs yesterday were 321-424-159-178 mg/dL. Patient received 33 units of insulin (20 units of basal and 13 units of bolus). * Fasting today is 166 mg/dL. Patient remains NPO + ready for transfer * Continue Lantus scale with hold parameter. BACKGROUND * Mr Pitts is a 52 y/o M with a PMH of T2DM who presents with abdominal pain. He is currently pending transfer to [facility]. * BSGs today are 202-212 mg/dL. Patient received 15 units of Lantus last night. * Lantus 10 units this morning (weight-based stress 1) plus scale tonight. Conservative dosing due to NPO status. * Novolog weight-based stress of 2. PLAN FOR INPATIENT GLYCEMIC CONTROL: * Hold outpatient oral diabetes medications * Basal insulin * Lantus 10 units SQ BID (15 units if BSG > 200 and hold if BSG < 150) * Bolus insulin * NovoLog per scale ACHS or Q6hrs while NPO * Goal Range: Low 110 mg/dL - High 140 mg/dL * Correction Factor: 20 mg/dL/unit * Nutritional / Prandial insulin per carb ratio of 1 unit per 7 grams CHO consumed
[2023-02-03] MEDS ORDERED: HYDROmorphone INJ 0.5 MG/0.5 ML SYR IV STA (14:21)
[2023-02-03] MEDS: DOCUSATE SODIUM/SENNA 50/8.6MG TAB PO SCH (14:37)
--- NOTE | 2023-02-03 15:18 | Surgery Consultation ---
Date of Consultation February 03, 2023 Assessment & Plan (1) Cholecystitis: At this point in time I am going to recommend an MRCP. If there is no evidence of any bile duct obstruction we could potentially perform a cholecystectomy since he continues to be symptomatic. We did discuss the option of a cholecyst ostomy tube which he would have to be transferred to a tertiary center for. We discussed the increased risks of cholecystectomy in the setting of acute cholecystitis. We discussed bleeding, infection, injury to a bile duct or bile leaks, DVT, PE, MT, CVA etc. We also discussed potential injury to other organs such as liver colon or small bowel etc. Following our discussion I answered his questions. Will obtain the MRCP today. Potential cholecystectomy tomorrow. If he continues to have debris within the bile ducts he would still need to be transferred to [place] to undergo an ERCP. (2) Pancreatitis: (3) COVID-19: (4) Elevated liver function tests: (5) Diabetes mellitus, type II: (6) CAD (coronary artery disease): History of Present Illness Attending Physician: Gurmeet Maurice MD History of Present Illness Jazmyn is a pleasant 52-year-old male who was admitted several days ago with acute abdominal pain. Workup revealed acute pancreatitis as well as cholecystitis and elevated LFTs. He has been trying to get transferred to [place] to undergo an ERCP. Apparently they have no bed availability. In the meantime he has somewhat improved clinically although he continues to have epigastric and right upper quadrant pain. His LFTs as well as pancreatic enzymes have improved. Allergies Allergy/AdvReac Type Severity Reaction Status Date / Time No Known Allergies Allergy Unknown Verified 06/22/17 10:02 Home Medications Medication Instructions Recorded Confirmed Type aspirin 81 mg capsule 81 mg PO DAILY 06/10/21 02/01/23 History isosorbide mononitrate 30 mg 30 mg PO DAILY #30 tabs 06/10/21 02/01/23 Rx tablet,extended release 24 hr metoprolol succinate 25 mg 25 mg PO BID 06/10/21 02/01/23 History tablet,extended release 24 hr rosuvastatin 40 mg tablet 40 mg PO DAILY 06/10/21 02/01/23 History dulaglutide 4.5 mg/0.5 mL 4.5 mg subcut WK 02/01/23 02/01/23 History subcutaneous pen injector (Trulicity) duloxetine 30 mg capsule,delayed 30 mg PO DAILY 02/01/23 02/01/23 History release fenofibrate 160 mg tablet 160 mg PO DAILY 02/01/23 02/01/23 History glipizide 5 mg tablet, extended 10 mg PO DAILY 02/01/23 02/01/23 History release 24 hr lisinopril 10 mg tablet 10 mg PO QAM 02/01/23 02/01/23 History metformin 500 mg tablet,extended 1,000 mg PO DAILY 02/01/23 02/01/23 History release 24 hr omeprazole 20 mg capsule,delayed 20 mg PO DAILY 02/01/23 02/01/23 History release insulin aspart U-100 100 unit/mL 1 unit (0.01 mL) SC Q6 #10 mL 02/02/23 Rx subcutaneous solution (Novolog U-100 Insulin aspart) piperacillin-tazobactam 4.5 4.5 g (112.5 mL) IV Q8H 7 days 02/02/23 Rx gram/100 mL dextrose(iso-osm) IV #2,362.5 mL piggyback (Zosyn) Patient History Medical History (Updated 02/01/23 @ 15:41 by Brenna Montgomery PA-C) HTN (hypertension) GERD (gastroesophageal reflux disease) Dyslipidemia Diabetes mellitus, type II CAD (coronary artery disease) Surgical History (Updated 02/01/23 @ 15:32 by Brenna Montgomery PA-C) History of coronary artery bypass graft Family History (Updated 02/01/23 @ 15:32 by Brenna Montgomery PA-C) Other Diabetes Social History (Updated 02/01/23 @ 15:33 by Brenna Montgomery PA-C) Smoking Status: Former smoker Second Hand Exposure: No; Do You Dip or Chew Tobacco: No; Tobacco Cessation Education Requested by Patient: No Hx Alcohol Use: Yes Alcohol type: hard liquor Hx Substance Use: No Preferred Language: Jamaican Communication Ability: Effective 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 Beliefs That Will Affect Care: None Current Living Situation: Spouse Other Information That Helps Us Care for You: No Feels Safe at Home: Yes Assistive Devices: None Review of Systems Review of Systems: All systems reviewed & are unremarkable except as noted in HPI & below Physical Exam Constitutional: WD/WN, vitals as above no acute distress and not ill appearing Eyes: PERRL, conjunctivae normal, anicteric sclerae EOM intact bilaterally ENMT: external ear and nose normal, oropharynx normal Ears: no hearing impairment Neck: trachea midline, no thyromegaly Respiratory: normal respiratory effort; no respiratory distress and does not use accessory muscles Cardiovascular: Rate/Rhythm: regular rate and regular rhythm Gastrointestinal (Abdomen): Soft. Positive right upper quadrant and epigastric tenderness. Mild guarding. Skin: no rashes, warm and dry Psychiatric: Orientation: alert, oriented x 3 and cooperative Results & Data Vital Signs (Past 12 Hours) Vital Signs Temp Pulse Pulse Resp BP Pulse Ox O2 Del Method 02/03/23 07:29 36.8 C 88 16 152/81 H 91 Room Air 02/03/23 07:12 92 H PG Care Time/CCT Total # of Minutes Spent Total Time Spent with Patient: Total time spent is greater than 50% in coordination of care (as documented) at patient's floor/unit and/or counseling patient: Coding Level of Care Code 14119 IN/OBS CONSULT LVL 4,60M Diagnoses Cholecystitis K81.9 Pancreatitis K85.90 COVID-19 U07.1 Elevated liver function tests R79.89 Diabetes mellitus, type II E11.9 CAD (coronary artery disease) I25.10
[2023-02-03] MEDS ORDERED: hydrALAZINE HCL 20 MG/ML VIAL IV PRN (16:23)
--- NOTE | 2023-02-03 16:23 | Hospitalist Progress Note ---
Date of Service February 03, 2023 Assessment & Plan (1) Pancreatitis: (2) Cholecystitis: (3) Elevated liver function tests: (4) Elevated lactic acid level: Plan: Acute Pancreatitis Likely choledocholithiasis Acute Cholecystitis per admitting service notes with addendum: Patient is a 52-year-old male with PMH HTN, dyslipidemia, CAD s/p CABG, DM II, GERD presented to ER with complaint of upper abdominal pain, nausea, vomiting x 1 day. Patient afebrile, P: 73, R: 20, BP 158/102, 98% on room air. WBC: 10.9, T. bili: 2.6, AST: 144, ALT: 149, alk phos: 48, lipase 1986 CT abdomen pelvis: 1. Findings compatible with acute interstitial edematous pancreatitis. No acute peripancreatic fluid collections or pancreatic biliary ductal dilation. 2. Cholelithiasis with equivocal gallbladder wall thickening. Correlation with right upper quadrant ultrasound recommended. 3. No biliary ductal dilation. 4. Hepatic steatosis. 5. Normal appendix. 6. Colonic diverticulosis. Liver ultrasound: Cholelithiasis with mild gallbladder wall thickening, pericholecystic fluid and sonographic Nixon sign. By sonography, the findings suggest acute cholecystitis. No biliary ductal dilatation. No common bile duct calculi identified although these may be occult by sonography. Obscured pancreas due to overlying bowel gas. Patient had received 2500ml NSS in ER and was given Rocephin, Flagyl, 2mg total Dilaudid Upon receiving call for admission patient was assessed at 14:20 and I performed tissue perfusion assessment and has normal capillary refill, O2 sat 94% on RA, HR: 74, Lungs clear to auscultation, peripheral pulses intact bilaterally, skin pink and warm and vitals:Pulse 74, R: 18, BP 185/103, 94% on room air. Repeat lactate was not completed so has been ordered and is pending Trend lactate Unfortunately do not have ERCP coverage currently. Patient accepted at [facility]. Accepting physician is Dr Prabhu Hong, however awaiting bed availability LR @200ml/hr Zosyn Tylenol, Dilaudid as needed pain Patient accepted for transfer at [facility]. Accepting physician Dr. Prabhu hong. Awaiting bed opening 02/02 HD stable afebrile still having abdominal pain Lipase and LFTs trending continue IV LR NPO except meds, sips IV Zosyn Pain medications 01/25 Hemodynamically stable Afebrile Still with persistent abdominal pain Increase Dilaudid to 1 mg p.o. every 3 hours Lipase, LFTs continues to improve Change LR to D5 NSS Calcium level 7.6, IV calcium ordered Potassium 3.4, p.o. potassium ordered Patient has been waiting for a bed at [facility] for almost 48 hours now, discussed with general surgery service Dr. Olmedo given persistent abdominal pain Will order MRCP Possible cholecystectomy tomorrow Continue IV Zosyn Continue to monitor electrolytes, monitor patient closely (5) COVID-19: Plan: 2 to 3 days ago with fatigue, yesterday with sore throat. Denies shortness of breath, chest pain + SARS-CoV-2 PCR CXR: No acute infiltrate per my interpretation. No acute cardiopulmonary findings per radiologist read Is not hypoxic Isolation precautions Incentive spirometry 02/03 o2 sats > 90% continue supportive care (6) Hyperglycemia: (7) Diabetes mellitus, type II: Plan: Random glucose 374 A1c: 6.9 on 12/26/2022 Hold home glipizide, metformin Start basal bolus insulin Glycemic pharmacy consult for assistance with glycemic management (8) HTN (hypertension): Plan: Hypertensive in ER. Likely secondary to missed BPM meds and pain Continue metoprolol succinate, lisinopril, isosorbide Add as needed hydralazine (9) Dyslipidemia: Plan: Hold rosuvastatin and fenofibrate for now (10) CAD (coronary artery disease): Plan: S/p CABG Continue metoprolol succinate, isosorbide Hold aspirin for now pending procedure (11) GERD (gastroesophageal reflux disease): Plan: Will switch home oral PPI to IV for now DVT Prophylaxis SCDs for now Admission and Anticipated Discharge Date Admission Date: February 01, 2023 Subjective Follow-up for acute cholecystitis, acute pancreatitis, etc. Seen resting in bed, comfortable, not in distress States he still has abdominal pain, slightly improved compared to yesterday but still persistent No nausea vomiting, fevers or chills No BMs yet No shortness of breath, cough, palpitations, chest pain No other new symptoms Review of Systems Review of Systems: all noted and negative except for above Physical Exam Physical Exam: General- oriented x 3, not in distress, speaks in sentences with no effort or accessory muscle use Eyes- anicteric Neck- no JVD Lungs- clear breath sounds bilaterally, no rales/wheezes Heart- normal rate, regular rhythm; no murmurs Abdomen- normal bowel sounds, mildly distended, soft, mildly tender Extremities- no pretibial edema, no calf tenderness Neuro- alert, oriented x 3; no gross focal neurologic deficits Skin- warm & dry Results & Data Results & Data Vital Signs (Past 12 Hours) Vital Signs Temp Pulse Pulse Resp BP Pulse Ox O2 Del Method 02/03/23 07:29 36.8 C 88 16 152/81 H 91 Room Air 02/03/23 07:12 92 H all noted and reviewed including below
--- NOTE | 2023-02-03 16:36 | Magnetic Resonance Report ---
MR MRCP HISTORY: 52 years-old Male acute pancreatitis, r/o choledocholithiasis acute upper abdominal pain COMPARISON: Right upper quadrant ultrasound and CT abdomen and pelvis studies 02/01/2023 TECHNIQUE: MRCP without the use of IV contrast was obtained according to institutional protocol FINDINGS: Partially imaged lower lumbar spinal fusion hardware. Median sternotomy changes with cardiomegaly. Ri ght hemidiaphragmatic elevation. Small pleural effusions with suggestion of bibasilar atelectasis. Interstitial and peripancreatic edema is similar in comparison CT with small amount of ascites within the lesser sac tracking along the pericolic gutters. No acute peripancreatic fluid collections, panc reatic or common bile duct dilation. The common bile duct measures 5 mm. The pancreatic duct is not w ell visualized. No choledocholithiasis identified. Cholelithiasis with borderline gallbladder wall th ickening and trace pericholecystic fluid redemonstrated. Air-filled loops of large and small bowel ma y represent a reactive ileus. Likely reactive wall thickening of the duodenum. Mild nonspecific bilat eral perinephric stranding without hydronephrosis. Mild generalized body wall edema. IMPRESSION: 1. Findings of acute interstitial edematous pancreatitis redemonstrated. No acute peripancreatic flui d collections. 2. No biliary or pancreatic ductal dilation or choledocholithiasis identified. 3. Cholelithiasis with mild gallbladder wall thickening redemonstrated. As previously stated, these f indings could be correlated with nuclear medicine hepatobiliary scan in order to exclude acute cholec ystitis. 4. Small pleural effusions with small volume of abdominal pelvic ascites. ACT 112: Negative or not required by law. The above report was generated using voice recognition software. It may contain grammatical, syntax o r spelling errors. Electronically signed by: Augusto Romero M.D. 02/03/2023 4:34 PM
[2023-02-04] MEDS: HYDROmorphone INJ 0.5 MG/0.5 ML SYR IV PRN ×6 (02:14→22:54)
[2023-02-04] MEDS: ACETAMINOPHEN 1,000 MG/100 ML VIAL IV PRN ×2 (04:25→12:12)
--- NOTE | 2023-02-04 06:06 | Surgery Progress Note ---
Date of Service February 04, 2023 Assessment & Plan (1) Cholecystitis: Plan: Patient has been admitted on the hospitalist service. From surgical perspective we recommend the following: Liver ultrasound on 02/01/2023 showed patient had cholelithiasis with mild gallbladder wall thickening and pericholecystic fluid concerning for acute cholecystitis MRCP was performed on 1219 that showed findings consistent with acute interstitial edematous pancreatitis. No choledocholithiasis was noted on this study. Cholelithiasis with mild gallbladder wall thickening was also noted on the study concerning for acute cholecystitis Lipase at time of admission was noted to be 1986, and has improved to 216 on yesterday's labs Total bilirubin was elevated at 2.6 at time of admission and has not since normalized. Patient was also noted to have elevated transaminases at time of admission which have also normalized Continue analgesics as needed Continue antiemetics as needed Maintain n.p.o. status Continue IV fluids Continue antibiotics in the form of Zosyn Check a.m. labs when available Patient is tentatively scheduled for cholecystectomy with Dr. Olmedo on 02/04/2023 Admission and Anticipated Discharge Date Admission Date: February 01, 2023 Subjective Patient is currently resting comfortably in bed. He notes some minor abdominal pain in the right upper quadrant. He denies any nausea or vomiting. He denies any fevers, shakes, or chills Physical Exam Gastrointestinal (Abdomen): Abdomen is mildly distended. Bowel sounds are hypoactive. There is no rebound tenderness or guarding but patient did have pain with palpation in the right upper quadrant. Results & Data Vital Signs (Past 12 Hours) Vital Signs Temp Pulse Pulse Resp BP Pulse Ox O2 Del Method 02/04/23 03:54 37 C 93 H 18 125/73 96 Nasal Cannula 02/03/23 23:07 36.9 C 93 H 18 141/88 H 95 Room Air 02/03/23 22:00 92 H 02/03/23 21:00 Room Air 02/03/23 19:59 37 C 90 18 138/83 93 Room Air O2 Flow Rate 02/04/23 03:54 3 02/03/23 23:07 02/03/23 22:00 02/03/23 21:00 02/03/23 19:59 PG Care Time/CCT Total # of Minutes Spent Total Time Spent with Patient: Total time spent is greater than 50% in coordination of care (as documented) at patient's floor/unit and/or counseling patient: Coding Level of Care Code 00227 SUB INP/OBS CARE 03/02MIN Diagnoses Cholecystitis K81.9
[2023-02-04] MEDS: INSULIN ASPART PER UNIT CHARGE SC SCH ×5 (06:36→20:32)
[2023-02-04] MEDS ORDERED: BUPIVACAINE/EPINEPHRINE 0.25% 1:200,000 30 ML VIAL ONE (08:02)
[2023-02-04 08:06] LABS: Albumin Level 3.3 gm/dl (3.4-5.0); BUN Creatinine Ratio 16.7 (10-20); Bilirubin Direct 0.3 mg/dl (0-0.2); Bilirubin,Total 0.9 mg/dl (0.2-1.0); Creatinine Clr Calc Pharmacy 133.1 ml/min; Est GFR (African American) 119.4 ml/min; Est GFR (Non-African American) 103.1 ml/min; Potassium 4.1 mmol/L (3.5-5.1)
[2023-02-04 08:10] LABS: Hematocrit (blood only) 40.1 % (42.0-52.0); Mean Corpuscular Hemoglobin 31.8 pg (25.0-34.0); Mean Corpuscular Hgb Conc 34.9 g/dL (32.0-36.0); Mean Corpuscular Volume 91.1 fL (80.0-100.0); Platelet Count 133 K/uL (130-400); RDW Coefficient of Variation 12.9 % (11.5-14.5); RDW Standard Deviation 43.3 fL (36.4-46.3); White Blood Count 11.86 K/ul (4.8-10.8)
[2023-02-04 08:11] LABS: Basophils # (auto) 0.07 K/uL (0.00-0.20); Basophils % (auto) 0.6 %; Eosinophils # (auto) 0.19 K/uL (0.00-0.50); Eosinophils % (auto) 1.6 %; Immature Granulocytes # (auto) 0.08 K/uL (0.01-0.20); Immature Granulocytes % (auto) 0.7 %; Lymphocytes % (auto) 7.6 %; Monocytes # (auto) 1.09 K/uL (0.11-0.59); Monocytes % (auto) 9.2 %; Neutrophils # (auto) 9.53 K/uL (1.40-6.50); Neutrophils % (auto) 80.3 %
[2023-02-04] MEDS ORDERED: fentaNYL citrate PF 100 MCG/2 ML VIAL ONE (08:19)
[2023-02-04] MEDS ORDERED: SUGAMMADEX SODIUM 200 MG/2 ML VIAL IV ONE (08:22)
--- NOTE | 2023-02-04 08:35 | History & Physical Bridge Note ---
Date of Service February 04, 2023 History & Physical Bridge Note I have examined the patient, reviewed the History & Physical and in the interval since the performance of the History & Physical I have noted the following changes of clinical significance: no changes noted MRCP without evidence of biliary stones. still with significant RUQ pain. discussed risks/options. sherry proceed with lap cameron today. pt agreeable.
[2023-02-04] MEDS ORDERED: PROMETHAZINE HCL 6.25 MG in SODIUM CHLORIDE 0.9% 50 ML IV PRN (08:55)
[2023-02-04] MEDS ORDERED: ONDANSETRON INJ 2 MG/ML 2 ML VIAL IV PRN (08:55)
[2023-02-04] MEDS ORDERED: fentaNYL citrate PF 100 MCG/2 ML VIAL IV PRN (08:55)
[2023-02-04] MEDS ORDERED: ePHEDrine sulfate 50 MG/ML AMP IV PRN (08:55)
[2023-02-04] MEDS ORDERED: ATROPINE SULFATE 0.1 MG/ML 10ML SYR IV PRN (08:55)
--- NOTE | 2023-02-04 08:55 | Anesthesiology Consultation ---
Date of Service February 04, 2023 Assessment & Plan Chart Review Chart Review: Acceptable Risk for Surgery and Patient NOT seen in Pre Admission Testing Consults Requested none ASA ASA3 Proposed Anesthesia Anesthesia Type: General Risk / Benefits Reviewed With: PT / POA / Parent / Guardian, Accepts Plan and Informed Consent Obtained History Surgery Operation Date: 02/04/23 12:10 Proposed Procedures p Laparoscopic Cholecystectomy - Prabhu Olmedo, DO Height/Weight Height: 5 ft 9 in Weight: 108.8 kg Allergies Allergy/AdvReac Type Severity Reaction Status Date / Time No Known Allergies Allergy Unknown Verified 06/22/17 10:02 Medications Home Medications Medication Instructions Recorded Confirmed Last Taken aspirin 81 mg capsule 81 mg PO DAILY 06/10/21 02/01/23 01/31/23 isosorbide mononitrate 30 mg 30 mg PO DAILY #30 tabs 06/10/21 02/01/23 01/31/23 tablet,extended release 24 hr metoprolol succinate 25 mg 25 mg PO BID 06/10/21 02/01/23 01/31/23 tablet,extended release 24 hr rosuvastatin 40 mg tablet 40 mg PO DAILY 06/10/21 02/01/23 01/31/23 dulaglutide 4.5 mg/0.5 mL 4.5 mg subcut WK 02/01/23 02/01/23 01/29/23 [facility] duloxetine 30 mg capsule,delayed 30 mg PO DAILY 02/01/23 02/01/23 Unknown release fenofibrate 160 mg tablet 160 mg PO DAILY 02/01/23 02/01/23 01/31/23 glipizide 5 mg tablet, extended 10 mg PO DAILY 02/01/23 02/01/23 01/31/23 release 24 hr lisinopril 10 mg tablet 10 mg PO QAM 02/01/23 02/01/23 01/31/23 metformin 500 mg tablet,extended 1,000 mg PO DAILY 02/01/23 02/01/23 01/31/23 release 24 hr omeprazole 20 mg capsule,delayed 20 mg PO DAILY 02/01/23 02/01/23 01/31/23 release insulin aspart U-100 100 unit/mL 1 unit (0.01 mL) SC Q6 #10 mL 02/02/23 Unknown subcutaneous solution (Novolog U-100 Insulin aspart) piperacillin-tazobactam 4.5 4.5 g (112.5 mL) IV Q8H 7 days 02/02/23 Unknown gram/100 mL dextrose(iso-osm) IV #2,362.5 mL piggyback (Zosyn) Active Medications Generic Name Dose Route Start Last Admin Trade Name Freq PRN Reason Stop Dose Admin Duloxetine HCl 30 mg 02/02/23 09:00 02/03/23 09:31 Duloxetine Hcl 30 Mg Cap PO 03/04/23 08:59 30 mg DAILY CANDELARIO Administration Hydromorphone HCl 1 mg 02/03/23 14:22 02/04/23 06:20 Hydromorphone Inj 0.5 Mg/0.5 Ml Syr IV 02/15/23 18:05 1 mg Q3H PRN Administration Mod-Sev Pain (Scale 4-10) Acetaminophen 1,000 mg in 100 mls @ 400 mls/hr 02/01/23 18:06 02/04/23 04:40 Ofirmev IV 02/04/23 18:05 Infused Q8H PRN Infusion Mild Pain (Scale 1, 2, 3) Piperacillin Sod/Tazobactam 100 mls @ 25 mls/hr 02/02/23 00:00 02/04/23 03:46 Sod 4.5 gm/ Dextrose IV 02/12/23 00:00 Infused Q8H CANDELARIO Infusion Protocol Pantoprazole Sodium 40 mg/ 10 mls @ 5 mls/min 02/01/23 18:06 02/03/23 10:04 Syringe IV 03/03/23 18:05 5 mls/min DAILY@1100 CANDELARIO Administration Lactated Ringer's 1,000 mls @ 80 mls/hr 02/02/23 14:00 02/03/23 23:55 Lr IV 03/04/23 13:59 80 mls/hr .[id number] CANDELARIO Administration Insulin Aspart 0 units 02/01/23 18:30 02/04/23 06:36 Insulin Aspart Per Unit Charge SC 03/03/23 18:29 1 units Q6 CANDELARIO Administration Insulin Glargine 0 units 02/02/23 21:00 02/03/23 21:10 Lantus Per Unit Charge SQ 03/04/23 20:59 10 units BID CANDELARIO Administration Protocol Isosorbide Mononitrate 30 mg 02/02/23 09:00 02/03/23 09:31 Isosorbide Tucker Extended Rel 30 Mg Tabcr PO 03/04/23 08:59 30 mg DAILY CANDELARIO Administration Lisinopril 10 mg 02/02/23 09:00 02/03/23 09:31 Lisinopril 10 Mg Tab PO 03/04/23 08:59 10 mg QAM CANDELARIO Administration Metoprolol Succinate 25 mg 02/01/23 21:00 02/03/23 21:09 Metoprolol Succ 25mg Ext Rel Tab PO 03/03/23 20:59 25 mg BID CANDELARIO Administration Senna/Docusate Sodium 1 tab 02/03/23 14:30 02/03/23 14:37 Docusate Sodium/Senna 50/8.6mg Tab PO 03/05/23 14:29 Not Given QAM CANDELARIO NPO Date Last Intake of Fluids: 02/03/23 Time Last Intake of Fluids: 21:00 Last Intake of Solids Comment: Patient stated Monday was his last day to have real food. Past Medical History Medical History (Updated 02/01/23 @ 15:41 by Brenna Montgomery PA-C) HTN (hypertension) GERD (gastroesophageal reflux disease) Dyslipidemia Diabetes mellitus, type II CAD (coronary artery disease) Exercise / Class Metabolic Activity II 4-5 Yardwork/Stairs/Walk up hill Past Family History Family History (Updated 02/01/23 @ 15:32 by Brenna Montgomery PA-C) Other Diabetes Past Surgical History Surgical History (Updated 02/01/23 @ 15:32 by Brenna Montgomery PA-C) History of coronary artery bypass graft Past Anesthesia History No Hx of Anesthesia Complications and No Family Hx of Anesthesia Complications History of PONV No Hx of PONV and No Hx of Motion Sickness Social History Smoking Status: Former smoker Do You Dip or Chew Tobacco: No Hx Alcohol Use: Yes Alcohol type: hard liquor alcohol intake frequency: a few times a week Hx Substance Use: No substance use type: does not use Physical Exam Vital Signs Last Vital Signs Temp 36.6 C 02/04/23 08:29 Pulse 87 02/04/23 08:29 Resp 16 02/04/23 08:29 BP 149/82 H 02/04/23 08:29 Pulse Ox 96 02/04/23 08:29 O2 Del Method Nasal Cannula 02/04/23 08:29 O2 Flow Rate 2 02/04/23 08:29 ENMT Mouth: no dentition abnormality Thyromental Distance: > or= 3.5 Finger Breadths Mallampati Class: II Neck normal visual inspection Respiratory normal respiratory effort Auscultation: lungs clear to auscultation bilaterally Cardiovascular Rate/Rhythm: regular rate and regular rhythm Psychiatric Orientation: alert Testing Laboratory Results 02/04/23 07:01 02/04/23 07:01 Urine Color Dark Yellow 02/01/23 08:35 Urine Appearance Clear (Clear) 02/01/23 08:35 Urine pH 6.5 (4.5-7.5) 02/01/23 08:35 Ur Specific [place] 1.027 (1.000-1.030) 02/01/23 08:35 Urine Protein Negative (Negative) 02/01/23 08:35 Urine Glucose (UA) 3+ (Negative) H 02/01/23 08:35 Urine Ketones 1+ (Negative) H 02/01/23 08:35 Urine Nitrite Negative (Negative) 02/01/23 08:35 Ur Leukocyte Esterase Negative (Negative) 02/01/23 08:35 02/04/23 02/03/23 02/03/23 06:19 23:42 20:54 POC Glucose 142 H 147 H 162 H
[2023-02-04] MEDS ORDERED: PROPOFOL IV EMULSION 10 MG/ML 20 ML VIAL IV ONE (09:08)
[2023-02-04] MEDS ORDERED: HEPARIN SOD 5,000 UNIT/0.5 ML VIAL SQ STA (09:08)
[2023-02-04] MEDS ORDERED: ONDANSETRON INJ 2 MG/ML 2 ML VIAL ONE (09:08)
[2023-02-04] MEDS ORDERED: LIDOCAINE 2% 2 ML VIAL/AMP(20MG/ML) INFIL ONE (09:08)
[2023-02-04] MEDS ORDERED: SUCCINYLCHOLINE CHLORIDE 20 MG/ML 10 ML VIAL IV ONE (09:08)
[2023-02-04] MEDS ORDERED: ROCURONIUM BROMIDE 10 MG/ML 5 ML VIAL IV ONE (09:08)
--- NOTE | 2023-02-04 09:47 | Operative Report ---
PG Post Operative Report Pre & Post Diagnosis Operation Date: 02/04/23 12:10 Pre-Op Diagnosis: Cholecystitis. Post-Op Diagnosis: Cholecystitis. I identified the patient and participated in the time-out.: Yes Procedure Operation Date: 02/04/23 12:10 Actual Procedures p Laparoscopic Cholecystectomy - Prabhu Olmedo DO Surgeon Prabhu Olmedo DO Installation Technician Xavier Trimble Estimated Blood Loss 10 Findings Consistent with Post-Op Diagnosis Specimens gallbladder Description of Procedure After informed consent was obtained the patient was taken to the operating room and placed in the supine position. After successful intubation the abdomen was sterilely prepped and draped in usual fashion. A periumbilical incision was mad e with an 11 blade scalpel and carried down through the soft tissue using electrocautery. The anterior rectus fascia was opened using electrocautery and 2 #0 Vicryl stay sutures were placed. The peritoneum was elevated with hemostats and incised under direct vision using Metzenbaum scissors. A finger sweep was performed and a 12 mm Gaston trocar was placed. The abdomen was insufflated to 18 mmHg. The laparoscope was inserted and the abdomen was examined in 360. The gallbladder was acutely inflamed, otherwise no gross abnormalities were identified. A subxiphoid 5 mm port and 2 right upper quadrant 5 mm ports were placed under direct vision. The patient was placed in a reverse Trendelenburg position and slightly airplaned to the left. The gallbladder was grasped and elevated superiorly and laterally. A [place] dissector was used to take down adhesions around the neck of the gallbladder. The cystic duct was identified and skeletonized. It was clipped twice proximally and once distally and transected using a laparoscopic scissor. In similar fashion the cystic artery was identified and skeletonized clipped and divided. There was a posterior branch that had to be clipped and divided as well. The gallbladder was removed from the gallbladder fossa with electrocautery. During this process the clip on the gallbladder side did come loose releasing a small amount of bile into the right upper quadrant. This was immediately suctioned and irrigated out. It was placed into an Endo Catch bag. Thorough irrigation was performed. At the end of the procedure there was adeq uate hemostasis and no evidence of any bile leaks. A final look around the abdomen showed no other abnormalities. The gallbladder and trochars were all removed and the abdomen was desufflated. The fascia of the camera port was closed using 0 Vicryl in a [id number] fashion. All the wounds were irrigated and closed using 4-0 Monocryl. Marcaine was injected around them for postoperative analgesia and skin glue used as a dressing. The patient was awaken extubated and transferred to recovery in stable condition. I attest to the content of the Intraoperative Record and any orders documented therein. Any exceptions are noted below.
--- NOTE | 2023-02-04 10:21 | Anesthesiology Progress Note ---
Date of Service February 04, 2023 Anesthesia Post Procedure Vital Signs Vital Signs: Temp Pulse Pulse Pulse Resp BP Pulse Ox 02/04/23 10:10 102 H 21 160/90 H 96 02/04/23 10:00 108 H 32 H 157/83 H 95 02/04/23 09:51 36.7 C 112 H 32 H 160/88 H 88 L 02/04/23 08:29 36.6 C 87 16 149/82 H 96 02/04/23 08:20 02/04/23 03:54 37 C 93 H 18 125/73 96 02/03/23 23:07 36.9 C 93 H 18 141/88 H 95 02/03/23 22:00 92 H 02/03/23 21:00 02/03/23 19:59 37 C 90 18 138/83 93 02/03/23 16:30 92 H 18 116/72 98 O2 Del Method O2 Flow Rate 02/04/23 10:10 Oxymask 4 02/04/23 10:00 Oxymask 8 02/04/23 09:51 Oxymask 12 02/04/23 08:29 Nasal Cannula 2 02/04/23 08:20 Room Air 02/04/23 03:54 Nasal Cannula 3 02/03/23 23:07 Room Air 02/03/23 22:00 02/03/23 21:00 Room Air 02/03/23 19:59 Room Air 02/03/23 16:30 Nasal Cannula 2 Pain Intensity Abdomen: Pain Intensity: 8 Transfer of Care Handoff Completed per policy Notes Mental Status: alert / awake / arousable Patient Amnestic to Procedure: Yes Nausea / Vomiting: adequately controlled Pain: adequately controlled Airway Patency, RR, SpO2: stable & adequate BP & HR: stable & adequate Hydration State: stable & adequate Anesthetic Complications: no major complications apparent
[2023-02-04] MEDS: DOCUSATE SODIUM/SENNA 50/8.6MG TAB PO SCH (12:20)
[2023-02-04] MEDS: METOPROLOL SUCC 25MG EXT REL TAB PO SCH ×2 (12:24→20:28)
[2023-02-04] MEDS: DULoxetine HCL 30 MG CAP PO SCH (12:25)
[2023-02-04] MEDS: ISOSORBIDE MONO EXTENDED REL 30 MG TABCR PO SCH (12:25)
[2023-02-04] MEDS: lisinopril 10 MG TAB PO SCH (12:25)
[2023-02-04] MEDS: PANTOprazole 40 MG in SYRINGE 0 ML IV SCH (12:25)
[2023-02-04] MEDS: PIPERACILLIN/TAZOBACTAM 4.5 GM in DEXTROSE 5% MINI-B 100 ML IV SCH ×2 (12:29→20:33)
[2023-02-04] MEDS: LANTUS PER UNIT CHARGE SQ SCH ×2 (13:24→21:20)
[2023-02-04] MEDS: LACTATED RINGER'S 1,000 ML IV SCH (15:57)
--- NOTE | 2023-02-04 18:01 | Hospitalist Progress Note ---
Date of Service February 04, 2023 Assessment & Plan (1) Cholecystitis: (2) Pancreatitis: Plan: Acute Pancreatitis Likely choledocholithiasis Acute Cholecystitis per admitting service notes with addendum: Patient is a 52-year-old male with PMH HTN, dyslipidemia, CAD s/p CABG, DM II, GERD presented to ER with complaint of upper abdominal pain, nausea, vomiting x 1 day. Patient afebrile, P: 73, R: 20, BP 158/102, 98% on room air. WBC: 10.9, T. bili: 2.6, AST: 144, ALT: 149, alk phos: 48, lipase 1986 CT abdomen pelvis: 1. Findings compatible with acute interstitial edematous pancreatitis. No acute peripancreatic fluid collections or pancreatic biliary ductal dilation. 2. Cholelithiasis with equivocal gallbladder wall thickening. Correlation with right upper quadrant ultrasound recommended. 3. No biliary ductal dilation. 4. Hepatic steatosis. 5. Normal appendix. 6. Colonic diverticulosis. Liver ultrasound: Cholelithiasis with mild gallbladder wall thickening, pericholecystic fluid and sonographic Nixon sign. By sonography, the findings suggest acute cholecystitis. No biliary ductal dilatation. No common bile duct calculi identified although these may be occult by sonography. Obscured pancreas due to overlying bowel gas. Patient had received 2500ml NSS in ER and was given Rocephin, Flagyl, 2mg total Dilaudid Upon receiving call for admission patient was assessed at 14:20 and I performed tissue perfusion assessment and has normal capillary refill, O2 sat 94% on RA, HR: 74, Lungs clear to auscultation, peripheral pulses intact bilaterally, skin pink and warm and vitals:Pulse 74, R: 18, BP 185/103, 94% on room air. Repeat lactate was not completed so has been ordered and is pending Trend lactate Unfortunately do not have ERCP coverage currently. [place] [facility] [place] Accepting physician is Dr Prabhu Hong, however awaiting bed availability LR @200ml/hr Zosyn Tylenol, Dilaudid as needed pain [place] [facility] [place] Accepting physician Dr. Prabhu hong. Awaiting bed opening 02/02 HD stable afebrile still having abdominal pain Lipase and LFTs trending continue IV LR NPO except meds, sips IV Zosyn Pain medications 02/03 Hemodynamically stable Afebrile Still with persistent abdominal pain Increase Dilaudid to 1 mg p.o. every 3 hours Lipase, LFTs continues to improve Change LR to D5 NSS Calcium level 7.6, IV calcium ordered Potassium 3.4, p.o. potassium ordered 02/04 Status post cholecystectomy Remains stable overall LFTs and lipase normal Continue IV Zosyn DC LR for now Continue IV Zosyn Continue to monitor electrolytes, monitor patient closely (5) COVID-19: Plan: 2 to 3 days ago with fatigue, yesterday with sore throat. Denies shortness of breath, chest pain + SARS-CoV-2 PCR CXR: No acute infiltrate per my interpretation. No acute cardiopulmonary findings per radiologist read Is not hypoxic Isolation precautions Incentive spirometry 02/04 o2 sats > 90% continue supportive care (6) Hyperglycemia: (7) Diabetes mellitus, type II: Plan: Random glucose 374 A1c: 6.9 on 12/26/2022 Hold home glipizide, metformin Start basal bolus insulin Glycemic pharmacy consult for assistance with glycemic management (8) HTN (hypertension): Plan: Hypertensive in ER. Likely secondary to missed BPM meds and pain Continue metoprolol succinate, lisinopril, isosorbide Add as needed hydralazine (9) Dyslipidemia: Plan: Hold rosuvastatin and fenofibrate for now (10) CAD (coronary artery disease): Plan: S/p CABG Continue metoprolol succinate, isosorbide Hold aspirin for now in light of cholecystectomy (11) GERD (gastroesophageal reflux disease): Plan: Will switch home oral PPI to IV for now DVT Prophylaxis SCDs for now Admission and Anticipated Discharge Date Admission Date: February 01, 2023 Subjective Follow-up for acute cholecystitis, pancreatitis, etc. Status postcholecystectomy Seen sitting up in bed, comfortable, not in distress States abdominal pain is improving No nausea vomiting, tolerating clear liquids No BM send No shortness of breath, cough, etc. No other new symptoms Review of Systems Review of Systems: all noted and negative except for above Physical Exam Physical Exam: General- oriented x 3, not in distress, speaks in sentences with no effort or accessory muscle use Eyes- anicteric Neck- no JVD Lungs- clear breath sounds bilaterally, no rales/wheezes Heart- normal rate, regular rhythm; no murmurs Abdomen- normal bowel sounds, mildly distended, soft, nontender Dressings in place, no bleeding or discharge Extremities- no pretibial edema, no calf tenderness Neuro- alert, oriented x 3; no gross focal neurologic deficits Skin- warm & dry Results & Data Results & Data Vital Signs (Past 12 Hours) Vital Signs Temp Pulse Pulse Pulse Pulse Resp BP 02/04/23 15:50 91 H 02/04/23 15:25 36.6 C 98 H 18 125/71 02/04/23 12:38 36.6 C 93 H 92 H 127/84 02/04/23 10:48 36.9 C 107 H 20 162/84 H 02/04/23 10:30 37.0 C 101 H 16 138/88 02/04/23 10:20 106 H 20 135/76 02/04/23 10:10 102 H 21 160/90 H 02/04/23 10:00 108 H 32 H 157/83 H 02/04/23 09:51 36.7 C 112 H 32 H 160/88 H 02/04/23 08:29 36.6 C 87 16 149/82 H 02/04/23 08:20 02/04/23 08:00 97 H Pulse Ox O2 Del Method O2 Flow Rate 02/04/23 15:50 02/04/23 15:25 92 Room Air 02/04/23 12:38 92 Room Air 02/04/23 10:48 91 Nasal Cannula 3 02/04/23 10:30 96 Oxymask 2 02/04/23 10:20 92 Oxymask 2 02/04/23 10:10 96 Oxymask 4 02/04/23 10:00 95 Oxymask 8 02/04/23 09:51 88 L Oxymask 12 02/04/23 08:29 96 Nasal Cannula 2 02/04/23 08:20 Room Air 02/04/23 08:00 all noted and reviewed including below
[2023-02-04] MEDS: CALCIUM CARBONATE 1250MG TAB PO SCH (20:28)
[2023-02-05] MEDS: HYDROmorphone INJ 0.5 MG/0.5 ML SYR IV PRN ×6 (02:01→23:33)
[2023-02-05] MEDS: PIPERACILLIN/TAZOBACTAM 4.5 GM in DEXTROSE 5% MINI-B 100 ML IV SCH ×3 (03:56→20:18)
--- NOTE | 2023-02-05 06:04 | Surgery Progress Note ---
Date of Service February 05, 2023 Assessment & Plan (1) Cholecystitis: Plan: Patient is status post laparoscopic cholecystectomy on 02/04/2023 (postop day #1) Continue analgesics as needed Continue antiemetics as needed Continue liquid diet with plans to advance as patient tolerates Continue IV fluids until oral intake adequate Continue antibiotics in the form of Zosyn Check a.m. labs when available Mobilize as able If patient remains hospitalized consider adding Lovenox for DVT prevention if H&H are stable on a.m. labs As above. Having some expected surgical discomfort but overall feeling better. His labs are normalizing including his lipase. He continues to not have any appetite so we will keep him on clear liquids. Hopefully we can advance his diet tomorrow with potential discharge in the next 24 to 48 hours from my standpoint. Admission and Anticipated Discharge Date Admission Date: February 01, 2023 Subjective Patient is resting comfortably in bed. He notes his pain is presently well- controlled. He denies any nausea or vomiting. He is tolerating clear liquids. He has not had a bowel movement or flatus since surgery. Physical Exam Gastrointestinal (Abdomen): Abdomen is minimally distended but overall soft and nonrigid. Bowel sounds are hypoactive. Surgical incisions are clean, dry, intact. Patient has minimal pain with palpation. Results & Data Vital Signs (Past 12 Hours) Vital Signs Temp Pulse Pulse Resp BP Pulse Ox O2 Del Method 02/05/23 03:41 37 C 90 18 122/75 94 Room Air 02/04/23 23:00 37.2 C 96 H 20 126/75 93 Nasal Cannula 02/04/23 21:57 96 H 02/04/23 20:30 Room Air 02/04/23 20:15 37.1 C 90 18 116/69 90 Room Air O2 Flow Rate 02/05/23 03:41 02/04/23 23:00 3 02/04/23 21:57 02/04/23 20:30 02/04/23 20:15 PG Care Time/CCT Total # of Minutes Spent Total Time Spent with Patient: Total time spent is greater than 50% in coordination of care (as documented) at patient's floor/unit and/or counseling patient: Coding Level of Care Code 94669 Post Operative Follow-Up Diagnoses Cholecystitis K81.9
[2023-02-05 06:58] LABS: Basophils # (auto) 0.09 K/uL (0.00-0.20); Basophils % (auto) 0.7 %; Eosinophils % (auto) 2.4 %; Hematocrit (blood only) 39.9 % (42.0-52.0); Immature Granulocytes % (auto) 1.6 %; Lymphocytes # (auto) 0.87 K/uL (1.20-3.40); Lymphocytes % (auto) 6.9 %; Mean Corpuscular Hemoglobin 31.6 pg (25.0-34.0); Mean Corpuscular Hgb Conc 35.1 g/dL (32.0-36.0); Mean Corpuscular Volume 90.1 fL (80.0-100.0); Mean Platelet Volume 9.6 fL (9.4-12.4); Monocytes # (auto) 1.46 K/uL (0.11-0.59); Monocytes % (auto) 11.5 %; Neutrophils # (auto) 9.73 K/uL (1.40-6.50); Neutrophils % (auto) 76.9 %; Nucleated RBC # (auto) 0.02 K/uL (0.00-0.12); Nucleated RBC % (auto) 0.2 %; Platelet Count 143 K/uL (130-400); RDW Coefficient of Variation 12.7 % (11.5-14.5); RDW Standard Deviation 42.1 fL (36.4-46.3); Red Blood Count 4.43 M/uL (4.70-6.10); White Blood Count 12.65 K/ul (4.8-10.8)
[2023-02-05 07:22] LABS: Albumin Level 3.1 gm/dl (3.4-5.0); BUN Creatinine Ratio 13.3 (10-20); Bilirubin Direct 0.2 mg/dl (0-0.2); Bilirubin,Total 0.8 mg/dl (0.2-1.0); Calcium 7.9 mg/dl (8.6-10.3); Creatinine Clr Calc Pharmacy 138.1 ml/min; Est GFR (African American) 121.4 ml/min; Est GFR (Non-African American) 104.7 ml/min; Potassium 3.3 mmol/L (3.5-5.1)
[2023-02-05] MEDS: DOCUSATE SODIUM/SENNA 50/8.6MG TAB PO SCH (08:31)
[2023-02-05] MEDS: DULoxetine HCL 30 MG CAP PO SCH (08:31)
[2023-02-05] MEDS: CALCIUM CARBONATE 1250MG TAB PO SCH ×2 (08:31→20:09)
[2023-02-05] MEDS: METOPROLOL SUCC 25MG EXT REL TAB PO SCH ×2 (08:31→20:09)
[2023-02-05] MEDS: lisinopril 10 MG TAB PO SCH (08:31)
[2023-02-05] MEDS: ISOSORBIDE MONO EXTENDED REL 30 MG TABCR PO SCH (08:31)
[2023-02-05] MEDS ORDERED: POTASSIUM CHLORIDE CRTAB 20 MEQ TABCR PO STA (08:48)
[2023-02-05] MEDS: INSULIN ASPART PER UNIT CHARGE SC SCH ×4 (09:01→20:05)
[2023-02-05] MEDS: LANTUS PER UNIT CHARGE SQ SCH ×2 (09:01→20:08)
[2023-02-05] MEDS: PANTOprazole 40 MG in SYRINGE 0 ML IV SCH (10:33)
[2023-02-05] MEDS: oxyCODONE HCL IR 5 MG TAB (IMMEDIATE RELEASE) PO PRN (10:34)
[2023-02-05] MEDS: ADVANCED PROBIOTIC 1250 MG CAPSULE PO SCH (10:34)
[2023-02-05] MEDS: POLYETHYLENE (MIRALAX) 17 GM PACK PO SCH (11:42)
--- NOTE | 2023-02-05 19:30 | Hospitalist Progress Note ---
Date of Service February 05, 2023 Assessment & Plan (1) Cholecystitis: (2) Pancreatitis: Plan: Acute Pancreatitis Likely choledocholithiasis Acute Cholecystitis per admitting service notes with addendum: Patient is a 52-year-old male with PMH HTN, dyslipidemia, CAD s/p CABG, DM II, GERD presented to ER with complaint of upper abdominal pain, nausea, vomiting x 1 day. Patient afebrile, P: 73, R: 20, BP 158/102, 98% on room air. WBC: 10.9, T. bili: 2.6, AST: 144, ALT: 149, alk phos: 48, lipase 1986 CT abdomen pelvis: 1. Findings compatible with acute interstitial edematous pancreatitis. No acute peripancreatic fluid collections or pancreatic biliary ductal dilation. 2. Cholelithiasis with equivocal gallbladder wall thickening. Correlation with right upper quadrant ultrasound recommended. 3. No biliary ductal dilation. 4. Hepatic steatosis. 5. Normal appendix. 6. Colonic diverticulosis. Liver ultrasound: Cholelithiasis with mild gallbladder wall thickening, pericholecystic fluid and sonographic Nixon sign. By sonography, the findings suggest acute cholecystitis. No biliary ductal dilatation. No common bile duct calculi identified although these may be occult by sonography. Obscured pancreas due to overlying bowel gas. Patient had received 2500ml NSS in ER and was given Rocephin, Flagyl, 2mg total Dilaudid Upon receiving call for admission patient was assessed at 14:20 and I performed tissue perfusion assessment and has normal capillary refill, O2 sat 94% on RA, HR: 74, Lungs clear to auscultation, peripheral pulses intact bilaterally, skin pink and warm and vitals:Pulse 74, R: 18, BP 185/103, 94% on room air. Repeat lactate was not completed so has been ordered and is pending Trend lactate Unfortunately do not have ERCP coverage currently. [place] [facility] [place] Accepting physician is Dr Prabhu Hong, however awaiting bed availability LR @200ml/hr Zosyn Tylenol, Dilaudid as needed pain Patient accepted for transfer at [facility] [place]. Accepting physician Dr. Prabhu hong. Awaiting bed opening 02/02 HD stable afebrile still having abdominal pain Lipase and LFTs trending continue IV LR NPO except meds, sips IV Zosyn Pain medications 02/03 Hemodynamically stable Afebrile Still with persistent abdominal pain Increase Dilaudid to 1 mg p.o. every 3 hours Lipase, LFTs continues to improve Change LR to D5 NSS Calcium level 7.6, IV calcium ordered Potassium 3.4, p.o. potassium ordered 02/04 Status post cholecystectomy Remains stable overall LFTs and lipase normal Continue IV Zosyn DC LR for now 02/05 Continue clear liquid diet Continue bowel regimen Continue IV Zosyn Continue to monitor electrolytes, monitor patient closely (5) COVID-19: Plan: 2 to 3 days ago with fatigue, yesterday with sore throat. Denies shortness of breath, chest pain + SARS-CoV-2 PCR CXR: No acute infiltrate per my interpretation. No acute cardiopulmonary findings per radiologist read Is not hypoxic Isolation precautions Incentive spirometry 02/05 o2 sats > 90% continue supportive care (6) Hyperglycemia: (7) Diabetes mellitus, type II: Plan: Random glucose 374 A1c: 6.9 on 12/26/2022 Hold home glipizide, metformin Start basal bolus insulin Glycemic pharmacy consult for assistance with glycemic management (8) HTN (hypertension): Plan: Hypertensive in ER. Likely secondary to missed BPM meds and pain Continue metoprolol succinate, lisinopril, isosorbide Add as needed hydralazine (9) Dyslipidemia: Plan: Hold rosuvastatin and fenofibrate for now (10) CAD (coronary artery disease): Plan: S/p CABG Continue metoprolol succinate, isosorbide Hold aspirin for now in light of cholecystectomy Resume aspirin once okay with general surgery (11) GERD (gastroesophageal reflux disease): Plan: Will switch home oral PPI to IV for now DVT Prophylaxis SCDs for now Admission and Anticipated Discharge Date Admission Date: February 01, 2023 Subjective Follow-up for acute pancreatitis, acute cystitis, etc. Seen resting in bed, comfortable, not in distress States he still has some abdominal discomfort but improving, some bloating No BMs yet, positive flatus No nausea or vomiting No fevers or chills No shortness of breath, fevers or chills, cough No other new symptom Review of Systems Review of Systems: all noted and negative except for above Physical Exam Physical Exam: General- oriented x 3, not in distress, speaks in sentences with no effort or accessory muscle use Eyes- anicteric Neck- no JVD Lungs- clear breath sounds bilaterally Heart- normal rate, regular rhythm; no murmurs Abdomen- normal bowel sounds, moderately distended, soft, nontender Extremities- no pretibial edema, no calf tenderness Neuro- alert, oriented x 3; no gross focal neurologic deficits Skin- warm & dry Results & Data Results & Data Vital Signs (Past 12 Hours) Vital Signs Temp Pulse Pulse Pulse Resp BP Pulse Ox 02/05/23 17:04 94 H 02/05/23 15:28 36.4 C L 94 H 20 118/80 93 02/05/23 13:11 36.5 C 93 H 18 127/72 92 02/05/23 08:30 36.8 C 101 H 20 133/78 91 02/05/23 08:00 94 H O2 Del Method O2 Flow Rate 02/05/23 17:04 02/05/23 15:28 Room Air 02/05/23 13:11 Nasal Cannula 2 02/05/23 08:30 Nasal Cannula 2 02/05/23 08:00 all noted and reviewed including below
[2023-02-06] MEDS: PIPERACILLIN/TAZOBACTAM 4.5 GM in DEXTROSE 5% MINI-B 100 ML IV SCH ×3 (03:38→20:29)
[2023-02-06] MEDS: HYDROmorphone INJ 0.5 MG/0.5 ML SYR IV PRN ×2 (03:38→07:40)
--- NOTE | 2023-02-06 05:15 | Surgery Progress Note ---
Date of Service February 06, 2023 Assessment & Plan (1) Cholecystitis: Plan: Patient is status post laparoscopic cholecystectomy on 02/04/2023 (postop day #2) Continue analgesics as needed Continue antiemetics as needed Continue liquid diet for the present timewill consider advancing diet when patient has improved bowel function Continue IV fluids until oral intake adequate Continue antibiotics in the form of Zosyn Check a.m. labs when available Continue to mobilize as able If patient remains hospitalized consider adding Lovenox for DVT prevention if H&H are stable on a.m. labs Doing okay but complaining of abdominal distention. No nausea and he is tolerating clear liquids. Will obtain KUB as he is at high risk for an ileus with the pancreatitis and status post surgery. Probably not ready for discharge yet. Admission and Anticipated Discharge Date Admission Date: February 01, 2023 Subjective Patient is currently resting comfortably in bed. He has had his diet advanced to clear liquid since surgery. He does deny nausea and vomiting but reports feeling bloated. He has not had any bowel movement or is not passing any flatus since surgery. Physical Exam Gastrointestinal (Abdomen): Bowel sounds are present but abdomen is noted to be mildly distended. Surgical incisions are clean, dry, intact. Patient has appropriate tenderness near surgical incisions. Results & Data Vital Signs (Past 12 Hours) Vital Signs Temp Pulse Pulse Resp BP Pulse Ox O2 Del Method 02/06/23 03:38 36.5 C 92 H 20 148/88 H 93 Nasal Cannula 02/05/23 23:36 36.6 C 101 H 18 104/56 L 93 Nasal Cannula 02/05/23 21:56 92 H 02/05/23 20:00 Room Air 02/05/23 19:51 37.1 C 101 H 20 134/83 94 Nasal Cannula O2 Flow Rate 02/06/23 03:38 2 02/05/23 23:36 2 02/05/23 21:56 02/05/23 20:00 02/05/23 19:51 2 PG Care Time/CCT Total # of Minutes Spent Total Time Spent with Patient: Total time spent is greater than 50% in coordination of care (as documented) at patient's floor/unit and/or counseling patient: Coding Level of Care Code 73766 Post Operative Follow-Up Diagnoses Cholecystitis K81.9
[2023-02-06] MEDS ORDERED: SIMETHICONE 80 MG CHEW PO PRN (07:56)
[2023-02-06] MEDS: POLYETHYLENE (MIRALAX) 17 GM PACK PO SCH (08:38)
[2023-02-06] MEDS: DULoxetine HCL 30 MG CAP PO SCH (08:39)
[2023-02-06] MEDS: DOCUSATE SODIUM/SENNA 50/8.6MG TAB PO SCH (08:39)
[2023-02-06] MEDS: ADVANCED PROBIOTIC 1250 MG CAPSULE PO SCH (08:39)
[2023-02-06] MEDS: METOPROLOL SUCC 25MG EXT REL TAB PO SCH ×2 (08:39→20:25)
[2023-02-06] MEDS: lisinopril 10 MG TAB PO SCH (08:39)
[2023-02-06] MEDS: CALCIUM CARBONATE 1250MG TAB PO SCH ×2 (08:39→20:24)
[2023-02-06] MEDS: ISOSORBIDE MONO EXTENDED REL 30 MG TABCR PO SCH (08:39)
[2023-02-06] MEDS: LANTUS PER UNIT CHARGE SQ SCH ×2 (09:08→20:25)
[2023-02-06] MEDS: INSULIN ASPART PER UNIT CHARGE SC SCH ×4 (09:08→20:25)
[2023-02-06 09:52] LABS: Hematocrit (blood only) 39.3 % (42.0-52.0); Hemoglobin 13.7 g/dl (14.0-18.0); Mean Corpuscular Hemoglobin 31.4 pg (25.0-34.0); Mean Corpuscular Hgb Conc 34.9 g/dL (32.0-36.0); Mean Corpuscular Volume 89.9 fL (80.0-100.0); Mean Platelet Volume 9.3 fL (9.4-12.4); Platelet Count 161 K/uL (130-400); Red Blood Count 4.37 M/uL (4.70-6.10); White Blood Count 13.32 K/ul (4.8-10.8)
[2023-02-06 10:09] LABS: Albumin Level 3.1 gm/dl (3.4-5.0); BUN Creatinine Ratio 14.9 (10-20); Bilirubin Direct 0.2 mg/dl (0-0.2); Bilirubin,Total 0.7 mg/dl (0.2-1.0); Calcium 8.1 mg/dl (8.6-10.3); Creatinine Clr Calc Pharmacy 139.9 ml/min; Est GFR (African American) 122.1 ml/min; Est GFR (Non-African American) 105.3 ml/min; Potassium 3.5 mmol/L (3.5-5.1)
[2023-02-06 10:31] LABS: Basophils % (auto) 0.8 %; Eosinophils # (auto) 0.25 K/uL (0.00-0.50); Eosinophils % (auto) 1.9 %; Immature Granulocytes # (auto) 0.43 K/uL (0.01-0.20); Immature Granulocytes % (auto) 3.2 %; Lymphocytes # (auto) 0.74 K/uL (1.20-3.40); Lymphocytes % (auto) 5.6 %; Monocytes # (auto) 1.84 K/uL (0.11-0.59); Monocytes % (auto) 13.8 %; Neutrophils # (auto) 9.96 K/uL (1.40-6.50); Neutrophils % (auto) 74.7 %; Polychromasia 1+; Toxic Granulation 1+
--- NOTE | 2023-02-06 10:55 | XRay Report ---
KUB CLINICAL HISTORY: Abdominal pain. Status post laparoscopic cholecystectomy on February 04, 2023. COMPARISON STUDY: CT of the abdomen and pelvis February 01, 2023 MRCP February 03, 2023. FINDINGS: Postoperative findings within the spine and cholecystectomy clips are incidentally noted. T here are median sternotomy wires. Bibasilar opacities favor atelectasis. Possible lucency under the r ight hemidiaphragm, suboptimally assessed on this supine exam, could reflect a small amount of pneumo peritoneum which is expected in the early postoperative setting. There has been interval development of significant gaseous distention of the colon, particularly the cecum which measures 11.5 cm in maxi mal dimension. There is mild gaseous distention of small bowel. IMPRESSION: 1. Interval development of gaseous distention of large and small bowel, particularly the cecum which measures 11.5 cm in maximal dimension. Given the clinical history, this favors a postoperative ileus. Radiographic follow-up is recommended. 2. Suspected small amount of pneumoperitoneum which is expected in the early postoperative setting. ACT 112: Negative or not required by law. Electronically signed by: Surinder Penny M.D. 02/06/2023 10:52 AM
[2023-02-06] MEDS: PANTOprazole 40 MG in SYRINGE 0 ML IV SCH (11:29)
--- NOTE | 2023-02-06 13:07 | Pharmacy Report ---
Pharmacy Glycemic Short Note 2 - Date of Service February 06, 2023 - Glycemic Short BSG Results (Last 24 hours): 02/05/23 02/05/23 02/06/23 17:43 20:05 08:28 Glucose POC Glucose 166 H 136 H 124 H 02/06/23 02/06/23 09:33 12:30 Glucose 210 H POC Glucose 160 H OUTPATIENT ANTIDIABETIC REGIMEN: * Glipizide 10 mg daily * Metformin 1000 mg daily * Trucility 4.5 mg SQ weekly ASSESSMENT: 02/06/23: * BSGs remain reasonably controlled on current regimen * Receiving ~30 units/day of insulin * POD #2 s/p laparoscopic cholecystectomy * Do not anticipate any changes to glycemic regimen today * HbA1c ordered for 02/07/23 02/03/23 * BSGs yesterday were [phone] mg/dL. Patient received 33 units of insulin (20 units of basal and 13 units of bolus). * Fasting today is 166 mg/dL. Patient remains NPO + ready for transfer * Continue Lantus scale with hold parameter. BACKGROUND * Mr Pitts is a 52 y/o M with a PMH of T2DM who presents with abdominal pain. He is currently pending transfer to [facility]. * BSGs today are 202-212 mg/dL. Patient received 15 units of Lantus last night. * Lantus 10 units this morning (weight-based stress 1) plus scale tonight. Conservative dosing due to NPO status. * Novolog weight-based stress of 2. PLAN FOR INPATIENT GLYCEMIC CONTROL: * Hold outpatient oral diabetes medications * Basal insulin * Lantus 10 units SQ BID * Bolus insulin * NovoLog per scale ACHS or Q6hrs while NPO * Goal Range: Low 110 mg/dL - High 140 mg/dL * Correction Factor: 20 mg/dL/unit * Nutritional / Prandial insulin per carb ratio of 1 unit per 7 grams CHO consumed
[2023-02-06] MEDS: KETOROLAC TROMETHAMINE 15 MG/ML VIAL IV PRN ×2 (14:02→20:03)
--- NOTE | 2023-02-06 18:52 | Hospitalist Progress Note ---
Date of Service February 06, 2023 Assessment & Plan (1) Cholecystitis: (2) Pancreatitis: Plan: Acute Pancreatitis Likely choledocholithiasis Acute Cholecystitis per admitting service notes with addendum: Patient is a 52-year-old male with PMH HTN, dyslipidemia, CAD s/p CABG, DM II, GERD presented to ER with complaint of upper abdominal pain, nausea, vomiting x 1 day. Patient afebrile, P: 73, R: 20, BP 158/102, 98% on room air. WBC: 10.9, T. bili: 2.6, AST: 144, ALT: 149, alk phos: 48, lipase 1986 CT abdomen pelvis: 1. Findings compatible with acute interstitial edematous pancreatitis. No acute peripancreatic fluid collections or pancreatic biliary ductal dilation. 2. Cholelithiasis with equivocal gallbladder wall thickening. Correlation with right upper quadrant ultrasound recommended. 3. No biliary ductal dilation. 4. Hepatic steatosis. 5. Normal appendix. 6. Colonic diverticulosis. Liver ultrasound: Cholelithiasis with mild gallbladder wall thickening, pericholecystic fluid and sonographic Nixon sign. By sonography, the findings suggest acute cholecystitis. No biliary ductal dilatation. No common bile duct calculi identified although these may be occult by sonography. Obscured pancreas due to overlying bowel gas. Patient had received 2500ml NSS in ER and was given Rocephin, Flagyl, 2mg total Dilaudid Upon receiving call for admission patient was assessed at 14:20 and I performed tissue perfusion assessment and has normal capillary refill, O2 sat 94% on RA, HR: 74, Lungs clear to auscultation, peripheral pulses intact bilaterally, skin pink and warm and vitals:Pulse 74, R: 18, BP 185/103, 94% on room air. Repeat lactate was not completed so has been ordered and is pending Trend lactate Unfortunately do not have ERCP coverage currently. [place] [facility] physician is Dr Prabhu Hong, however awaiting bed availability LR @200ml/hr Zosyn Tylenol, Dilaudid as needed pain Patient accepted [place] [facility] Accepting physician Dr. Prabhu hong. Awaiting bed opening 02/02 HD stable afebrile still having abdominal pain Lipase and LFTs trending continue IV LR NPO except meds, sips IV Zosyn Pain medications 02/03 Hemodynamically stable Afebrile Still with persistent abdominal pain Increase Dilaudid to 1 mg p.o. every 3 hours Lipase, LFTs continues to improve Change LR to D5 NSS Calcium level 7.6, IV calcium ordered Potassium 3.4, p.o. potassium ordered 02/04 Status post cholecystectomy Remains stable overall LFTs and lipase normal Continue IV Zosyn DC LR for now 02/05 Continue clear liquid diet Continue bowel regimen Continue IV Zosyn Continue to monitor electrolytes, monitor patient closely 02/06 KUB: Ileus Continue clear liquid diet, bowel regimen, IV Zosyn Discussed with patient regarding pain management Will try to avoid narcotics Continue Toradol and Tylenol as needed (5) COVID-19: Plan: 2 to 3 days ago with fatigue, yesterday with sore throat. Denies shortness of breath, chest pain + SARS-CoV-2 PCR CXR: No acute infiltrate per my interpretation. No acute cardiopulmonary findings per radiologist read Is not hypoxic Isolation precautions Incentive spirometry 02/06 o2 sats > 90% continue supportive care (6) Hyperglycemia: (7) Diabetes mellitus, type II: Plan: Random glucose 374 A1c: 6.9 on 12/26/2022 Hold home glipizide, metformin Start basal bolus insulin Glycemic pharmacy consult for assistance with glycemic management (8) HTN (hypertension): Plan: Hypertensive in ER. Likely secondary to missed BPM meds and pain Continue metoprolol succinate, lisinopril, isosorbide Add as needed hydralazine (9) Dyslipidemia: Plan: Hold rosuvastatin and fenofibrate for now (10) CAD (coronary artery disease): Plan: S/p CABG Continue metoprolol succinate, isosorbide Hold aspirin for now in light of cholecystectomy Resume aspirin once okay with general surgery (11) GERD (gastroesophageal reflux disease): Plan: Will switch home oral PPI to IV for now DVT Prophylaxis SCDs for now Admission and Anticipated Discharge Date Admission Date: February 01, 2023 Subjective Follow-up for acute pancreatitis, cholecystitis, etc. Seen resting in bedside chair, comfortable, not in distress Good spirits Abdominal pain being relieved by Toradol and Tylenol as needed +1 episode of flatus No BM send No nausea vomiting No problems with breathing Review of Systems Review of Systems: all noted and negative except for above Physical Exam Physical Exam: General- oriented x 3, not in distress, speaks in sentences with no effort or accessory muscle use Eyes- anicteric Neck- no JVD Lungs- clear breath sounds bilaterally, no crackles or wheezing Heart- normal rate, regular rhythm; no murmurs Abdomen- normal bowel sounds, mildly distended, soft, no tenderness Extremities- no pretibial edema, no calf tenderness Neuro- alert, oriented x 3; no gross focal neurologic deficits Skin- warm & dry Results & Data Results & Data Vital Signs (Past 12 Hours) Vital Signs Temp Pulse Pulse Resp BP Pulse Ox O2 Del Method 02/06/23 16:43 37.1 C 80 16 135/82 96 Nasal Cannula 02/06/23 16:12 91 H 02/06/23 11:49 36.5 C 88 16 122/76 92 Room Air 02/06/23 08:10 36.6 C 90 16 142/84 H 96 Nasal Cannula 02/06/23 07:35 Nasal Cannula 02/06/23 07:25 91 H O2 Flow Rate 02/06/23 16:43 2 02/06/23 16:12 02/06/23 11:49 02/06/23 08:10 2 02/06/23 07:35 2 02/06/23 07:25 all noted and reviewed including below
[2023-02-06] MEDS: HEPARIN SOD 5,000 UNIT/0.5 ML VIAL SQ SCH (23:19)
[2023-02-07] MEDS: KETOROLAC TROMETHAMINE 15 MG/ML VIAL IV PRN ×2 (05:03→12:54)
[2023-02-07] MEDS: HEPARIN SOD 5,000 UNIT/0.5 ML VIAL SQ SCH ×2 (05:03→13:02)
[2023-02-07] MEDS: PIPERACILLIN/TAZOBACTAM 4.5 GM in DEXTROSE 5% MINI-B 100 ML IV SCH ×2 (05:06→12:05)
[2023-02-07] MEDS: POLYETHYLENE (MIRALAX) 17 GM PACK PO SCH (09:12)
[2023-02-07] MEDS: lisinopril 10 MG TAB PO SCH (09:12)
[2023-02-07] MEDS: ISOSORBIDE MONO EXTENDED REL 30 MG TABCR PO SCH (09:12)
[2023-02-07] MEDS: ADVANCED PROBIOTIC 1250 MG CAPSULE PO SCH (09:12)
[2023-02-07] MEDS: CALCIUM CARBONATE 1250MG TAB PO SCH (09:12)
[2023-02-07] MEDS: METOPROLOL SUCC 25MG EXT REL TAB PO SCH (09:12)
[2023-02-07] MEDS: DOCUSATE SODIUM/SENNA 50/8.6MG TAB PO SCH (09:12)
[2023-02-07] MEDS: DULoxetine HCL 30 MG CAP PO SCH (09:13)
[2023-02-07] MEDS: LANTUS PER UNIT CHARGE SQ SCH (09:53)
[2023-02-07] MEDS: INSULIN ASPART PER UNIT CHARGE SC SCH ×2 (09:54→12:54)
--- NOTE | 2023-02-07 10:13 | Surgery Progress Note ---
Date of Service February 07, 2023 Assessment & Plan (1) Cholecystitis: Plan: Doing better. Will increase his diet to full liquids. I do believe it is probably okay if he gets discharged later today. We will send a message to the primary service. (2) Pancreatitis: Admission and Anticipated Discharge Date Admission Date: February 01, 2023 Subjective Patient seen. He had a large bowel movement this morning and feels much better. He denies any nausea or vomiting and would like to go home Physical Exam Physical Exam: Alert no acute distress Abdomen is soft. It is still mildly distended but improved from yesterday Results & Data Vital Signs (Past 12 Hours) Vital Signs Temp Pulse Pulse Resp BP BP Pulse Ox 02/07/23 07:44 84 02/07/23 07:35 36.4 C L 86 20 152/91 H 96 02/07/23 04:42 36.7 C 89 20 154/93 H 94 02/06/23 23:27 36.4 C L 83 18 142/84 H 95 02/06/23 22:37 86 O2 Del Method O2 Flow Rate 02/07/23 07:44 02/07/23 07:35 Nasal Cannula 2 02/07/23 04:42 Nasal Cannula 2 02/06/23 23:27 Room Air 02/06/23 22:37 PG Care Time/CCT Total # of Minutes Spent Total Time Spent with Patient: Total time spent is greater than 50% in coordination of care (as documented) at patient's floor/unit and/or counseling patient: Coding Level of Care Code 13981 Post Operative Follow-Up Diagnoses Cholecystitis K81.9 Pancreatitis K85.90
[2023-02-07 10:45] LABS: Hematocrit (blood only) 35.9 % (42.0-52.0); Hemoglobin 12.8 g/dl (14.0-18.0); Mean Corpuscular Hemoglobin 31.1 pg (25.0-34.0); Mean Corpuscular Hgb Conc 35.7 g/dL (32.0-36.0); Mean Corpuscular Volume 87.1 fL (80.0-100.0); Mean Platelet Volume 9.7 fL (9.4-12.4); Platelet Count 186 K/uL (130-400); RDW Coefficient of Variation 12.4 % (11.5-14.5); RDW Standard Deviation 39.8 fL (36.4-46.3); Red Blood Count 4.12 M/uL (4.70-6.10); White Blood Count 13.68 K/ul (4.8-10.8)
[2023-02-07 10:54] LABS: Estimated Average Glucose 163 mg/dl; Hemoglobin A1C 7.3 % (4.5-5.6)
[2023-02-07 10:59] LABS: Albumin Level 2.9 gm/dl (3.4-5.0); BUN Creatinine Ratio 15.8 (10-20); Bilirubin Direct 0.2 mg/dl (0-0.2); Bilirubin,Total 0.7 mg/dl (0.2-1.0); Calcium 8.2 mg/dl (8.6-10.3); Creatinine Clr Calc Pharmacy 137.7 ml/min; Est GFR (African American) 120.7 ml/min; Est GFR (Non-African American) 104.2 ml/min; Potassium 3.4 mmol/L (3.5-5.1); Total Protein 5.7 gm/dl (6.0-8.3)
[2023-02-07 11:29] LABS: Basophils # (auto) 0.07 K/uL (0.00-0.20); Basophils % (auto) 0.5 %; Eosinophils # (auto) 0.25 K/uL (0.00-0.50); Eosinophils % (auto) 1.8 %; Immature Granulocytes # (auto) 0.62 K/uL (0.01-0.20); Immature Granulocytes % (auto) 4.5 %; Lymphocytes # (auto) 0.85 K/uL (1.20-3.40); Lymphocytes % (auto) 6.2 %; Monocytes # (auto) 1.54 K/uL (0.11-0.59); Monocytes % (auto) 11.3 %; Neutrophils # (auto) 10.35 K/uL (1.40-6.50); Neutrophils % (auto) 75.7 %; Polychromasia 1+; Toxic Granulation 2+
[2023-02-07] MEDS: PANTOprazole 40 MG in SYRINGE 0 ML IV SCH (11:41)
[2023-02-07] MEDS: oxyCODONE HCL IR 5 MG TAB (IMMEDIATE RELEASE) PO PRN (12:04)
[2023-02-07] MEDS ORDERED: POTASSIUM CHLORIDE CRTAB 20 MEQ TABCR PO STA (14:22)
--- NOTE | 2023-02-07 17:53 | Hospitalist Progress Note ---
Date of Service February 07, 2023 Assessment & Plan (1) Cholecystitis: (2) Pancreatitis: Plan: Acute Pancreatitis Likely choledocholithiasis Acute Cholecystitis per admitting service notes with addendum: Patient is a 52-year-old male with PMH HTN, dyslipidemia, CAD s/p CABG, DM II, GERD presented to ER with complaint of upper abdominal pain, nausea, vomiting x 1 day. Patient afebrile, P: 73, R: 20, BP 158/102, 98% on room air. WBC: 10.9, T. bili: 2.6, AST: 144, ALT: 149, alk phos: 48, lipase 1986 CT abdomen pelvis: 1. Findings compatible with acute interstitial edematous pancreatitis. No acute peripancreatic fluid collections or pancreatic biliary ductal dilation. 2. Cholelithiasis with equivocal gallbladder wall thickening. Correlation with right upper quadrant ultrasound recommended. 3. No biliary ductal dilation. 4. Hepatic steatosis. 5. Normal appendix. 6. Colonic diverticulosis. Liver ultrasound: Cholelithiasis with mild gallbladder wall thickening, pericholecystic fluid and sonographic Nixon sign. By sonography, the findings suggest acute cholecystitis. No biliary ductal dilatation. No common bile duct calculi identified although these may be occult by sonography. Obscured pancreas due to overlying bowel gas. Patient initially slated to be transferred to [facility] for ERCP While awaiting transfer, patient was given vigorous IV lactated Ringer's, kept n.p.o., given IV Zosyn, and supportive care Fortunately, lipase and LFTs gradually improved and normalized However patient still continued to have abdominal pain and bloating, requiring IV Dilaudid 48 hours has passed but patient was still waiting for a bed at [facility] Discussed with general surgeon Dr. Prabhu Olmedo for possible management here at [facility] MRCP ordered: No choledocholithiasis found Decision was made to cancel the transfer, keep the patient in [facility] and proceed with cholecystectomy here 02/04 Status post cholecystectomy Patient clinically improved Abdominal pain improved but remains bloated, constipated KUB: Ileus Regimen increased, patient subsequently had bowel movement Cleared for discharge per general surgery service Follow-up with Dr. Prabhu Olmedo in 1 week Discharged with as needed Toradol only for severe pain, otherwise take Tylenol and ibuprofen Patient advised to take plenty of fluids, maintain bowel regimen, remain on a soft diet for 3 to 5 days and advance gradually PCP follow-up in 1 week (5) COVID-19: Plan: 2 to 3 days ago with fatigue, yesterday with sore throat. Denies shortness of breath, chest pain + SARS-CoV-2 PCR CXR: No acute infiltrate per my interpretation. No acute cardiopulmonary findings per radiologist read Patient respiratory status remained stable while admitted Hypoxia, no shortness of breath Supportive care given Requires 3 more days of isolation (6) Hyperglycemia: (7) Diabetes mellitus, type II: Plan: Random glucose 374 A1c: 6.9 on 12/26/2022 Resume usual current regimen at home next (8) HTN (hypertension): Plan: Hypertensive in ER. Likely secondary to missed BPM meds and pain Continue metoprolol succinate, lisinopril, isosorbide (9) Dyslipidemia: Plan: Hold rosuvastatin and fenofibrate for now in light of acute pancreatitis Resume after 1 to 2 weeks (10) CAD (coronary artery disease): Plan: S/p CABG Continue metoprolol succinate, isosorbide Resume aspirin (11) GERD (gastroesophageal reflux disease): Plan: Continue PPI PCP in 1 week General surgery in 1 week plan of care discussed with patient and his at bedside in detail and at length all questions answered They are understanding, agreeable, comfortable with the plan of care Admission and Anticipated Discharge Date Admission Date: February 01, 2023 Subjective Follow-up for acute cholecystitis, acute pancreatitis, etc. Seen resting in bed, sitting up, in good spirits States he feels much better overall Had a good bowel movement today, relieving his bloatedness Tolerating current diet so far no chest pain, dyspnea, palpitations, dizziness No fevers or chills No any other new symptoms States he is ready wanted to be discharged today Review of Systems Review of Systems: all noted and negative except for above Physical Exam Physical Exam: General- oriented x 3, not in distress, speaks in sentences with no effort or accessory muscle use Eyes- anicteric Neck- no JVD Lungs- clear breath sounds bilaterally, no rales/wheezes Heart- normal rate, regular rhythm; no murmurs Abdomen- normal bowel sounds, nondistended, soft, nontender Extremities- no pretibial edema, no calf tenderness Neuro- alert, oriented x 3; no gross focal neurologic deficits Skin- warm & dry Results & Data Results & Data Vital Signs (Past 12 Hours) Vital Signs Temp Pulse Pulse Pulse Resp BP BP 02/07/23 16:00 36.7 C 101 H 82 18 126/79 142/84 H 02/07/23 15:24 36.7 C 82 18 126/79 02/07/23 10:56 36.8 C 81 16 124/78 02/07/23 09:00 02/07/23 07:44 84 02/07/23 07:35 36.4 C L 86 20 152/91 H Pulse Ox O2 Del Method O2 Flow Rate 02/07/23 16:00 92 02/07/23 15:24 92 Room Air 02/07/23 10:56 93 Room Air 02/07/23 09:00 Room Air 02/07/23 07:44 02/07/23 07:35 96 Nasal Cannula 2 all noted and reviewed including below
--- NOTE | 2023-02-07 20:44 | Discharge Summary ---
Discharge Summary Date of Service February 07, 2023 Notes For Next Care Provider Medication Changes From Visit Toradol-as needed for severe pain Ibuprofen, Tylenol-as needed for mild to moderate pain [id number] softener, hold for diarrhea Calcium carbonate-calcium supplement Admission HPI Per Admitting Provider Patient is a 52-year-old male with PMH HTN, dyslipidemia, CAD s/p CABG, DM II, GERD presented to ER with complaint of abdominal pain x 1 day. History obtained from patient as well as outpatient chart review. Patient states yesterday for dinner ate hot sausage sandwich. Later developed sharp epigastric pain and upper abdominal pain. Patient states pain radiates around to back. Also complains of nausea. Reports numerous episodes of vomiting followed by dry heaves last night. States this morning having a lot of burping. Denies any diarrhea. Last BM reported this morning as normal and without melena, hematochezia. Denies any hematemesis. does not "red dots" to face after the vomiting episodes. States this has happened to him before after forceful vomiting. Denies any recent heartburn or food intolerance reports is compliant with his omeprazole. Denies history of gallbladder attacks in the past. Patient states 2 to 3 days ago started feeling tired. States yesterday morning started with mild sore throat. Denies chest pain, shortness of breath, cough, rhinorrhea, congestion, myalgias. Denies any known ill contacts or COVID- positive contacts. Reports had initial COVID 19 vaccinations but no recent boosters. Denies fever/chills, diaphoresis, SALV[place]OR, dizziness, syncope, vision changes, neck pain, CP, SOB, orthopnea, palpitations, choking, otalgia, paresthesias, extremity weakness, extremity edema, urinary symptoms. Admission Exam Per Admitting Provider General: +mild distress secondary abdominal pain, obese Head: normocephalic, atraumatic Face: +petechiae forhead, periorbital and cheeks Eyes: PERRL, EOM's intact, conjunctiva non-injected, no subconjunctival hemorrhage noted, anicteric ENT: normal inspection external ears, nose, mucous membranes moist Neck: supple, trachea midline, non-tender Lungs: clear, no respiratory distress, no wheezing/rhonchi/rales CV: RRR, no murmur, no pretibial edema Abd: protuberant normal BS, soft, +tenderness palpation epigastric, RUQ, LUQ with guarding without rebound Ext: no cyanosis, no calf tenderness Neuro: A&O x 3, no focal deficits noted, normal affect Skin: warm, dry Principal Dx & Hospital Course #1 = Principal Diagnosis (1) Cholecystitis: (2) Pancreatitis: Acute Pancreatitis Likely choledocholithiasis Acute Cholecystitis per admitting service notes with addendum: Patient is a 52-year-old male with PMH HTN, dyslipidemia, CAD s/p CABG, DM II, GERD presented to ER with complaint of upper abdominal pain, nausea, vomiting x 1 day. Patient afebrile, P: 73, R: 20, BP 158/102, 98% on room air. WBC: 10.9, T. bili: 2.6, AST: 144, ALT: 149, alk phos: 48, lipase 1986 CT abdomen pelvis: 1. Findings compatible with acute interstitial edematous pancreatitis. No acute peripancreatic fluid collections or pancreatic biliary ductal dilation. 2. Cholelithiasis with equivocal gallbladder wall thickening. Correlation with right upper quadrant ultrasound recommended. 3. No biliary ductal dilation. 4. Hepatic steatosis. 5. Normal appendix. 6. Colonic diverticulosis. Liver ultrasound: Cholelithiasis with mild gallbladder wall thickening, pericholecystic fluid and sonographic Nixon sign. By sonography, the findings suggest acute cholecystitis. No biliary ductal dilatation. No common bile duct calculi identified although these may be occult by sonography. Obscured pancreas due to overlying bowel gas. Patient initially slated to be transferred to [facility] for ERCP While awaiting transfer, patient was given vigorous IV lactated Ringer's, kept n.p.o., given IV Zosyn, and supportive care Fortunately, lipase and LFTs gradually improved and normalized However patient still continued to have abdominal pain and bloating, requiring IV Dilaudid 48 hours has passed but patient was still waiting for a bed at [facility] Discussed with general surgeon Dr. Pasha Murphy for possible management here at [facility] MRCP ordered: No choledocholithiasis found Decision was made to cancel the transfer, keep the patient in [facility] and proceed with cholecystectomy here 02/04 Status post cholecystectomy Patient clinically improved Abdominal pain improved but remains bloated, constipated KUB: Ileus Regimen increased, patient subsequently had bowel movement Cleared for discharge per general surgery service Follow-up with Dr. Pasha Murphy in 1 week Discharged with as needed Toradol only for severe pain, otherwise take Tylenol and ibuprofen Given calcium supplement in light of mild hypocalcemia, repeat level and follow- up with PCP Patient advised to take plenty of fluids, maintain bowel regimen, remain on a soft diet for 3 to 5 days and advance gradually PCP follow-up in 1 week (5) COVID-19: Plan: 2 to 3 days ago with fatigue, yesterday with sore throat. Denies shortness of breath, chest pain + SARS-CoV-2 PCR CXR: No acute infiltrate per my interpretation. No acute cardiopulmonary findings per radiologist read Patient respiratory status remained stable while admitted Hypoxia, no shortness of breath Supportive care given Requires 3 more days of isolation (6) Hyperglycemia: (7) Diabetes mellitus, type II: Plan: Random glucose 374 A1c: 6.9 on 12/26/2022 Resume usual current regimen at home next (8) HTN (hypertension): Plan: Hypertensive in ER. Likely secondary to missed BPM meds and pain Continue metoprolol succinate, lisinopril, isosorbide (9) Dyslipidemia: Plan: Hold rosuvastatin and fenofibrate for now in light of acute pancreatitis Resume after 1 to 2 weeks (10) CAD (coronary artery disease): Plan: S/p CABG Continue metoprolol succinate, isosorbide Resume aspirin (11) GERD (gastroesophageal reflux disease): Plan: Continue PPI PCP in 1 week General surgery in 1 week plan of care discussed with patient and his at bedside in detail and at length all questions answered They are understanding, agreeable, comfortable with the plan of care Discharge Exam General- oriented x 3, not in distress, speaks in sentences with no effort or accessory muscle use Eyes- anicteric Neck- no JVD Lungs- clear breath sounds bilaterally, no rales/wheezes Heart- normal rate, regular rhythm; no murmurs Abdomen- normal bowel sounds, nondistended, soft, nontender Extremities- no pretibial edema, no calf tenderness Neuro- alert, oriented x 3; no gross focal neurologic deficits Skin- warm & dry Updated Medication List Medication Instructions Recorded Confirmed Type aspirin 81 mg capsule 81 mg PO DAILY 06/10/21 02/01/23 History isosorbide mononitrate 30 mg 30 mg PO DAILY #30 tabs 06/10/21 02/01/23 Rx tablet,extended release 24 hr metoprolol succinate 25 mg 25 mg PO BID 06/10/21 02/01/23 History tablet,extended release 24 hr rosuvastatin 40 mg tablet 40 mg PO DAILY 06/10/21 02/01/23 History dulaglutide 4.5 mg/0.5 mL 4.5 mg subcut WK 02/01/23 02/01/23 History subcutaneous pen injector (Trulicity) duloxetine 30 mg capsule,delayed 30 mg PO DAILY 02/01/23 02/01/23 History release fenofibrate 160 mg tablet 160 mg PO DAILY 02/01/23 02/01/23 History glipizide 5 mg tablet, extended 10 mg PO DAILY 02/01/23 02/01/23 History release 24 hr lisinopril 10 mg tablet 10 mg PO QAM 02/01/23 02/01/23 History metformin 500 mg tablet,extended 1,000 mg PO DAILY 02/01/23 02/01/23 History release 24 hr omeprazole 20 mg capsule,delayed 20 mg PO DAILY 02/01/23 02/01/23 History release calcium carbonate 500 mg-vitamin 2.5 tab PO BID 7 days #35 tabs 02/07/23 Rx D3 15 mcg (600 unit) tablet (Os-Semaj 500 + D3) ketorolac 10 mg tablet 10 mg PO Q8H PRN severe pain #8 02/07/23 Rx tabs sennosides 8.6 mg-docusate sodium 1 tab PO QAM #7 tabs 02/07/23 Rx 50 mg tablet (Senokot-S) Hospital Stay Data Consultations 02/01/23 14:16 ED Decision to Admit Stat 02/03/23 13:03 Consult General Surgery Routine Procedures Performed Operation Date: 02/04/23 12:10 Actual Procedures p Laparoscopic Cholecystectomy - Pasha Murphy DO Diagnostic Imagining Performed Laboratory Results WBC 13.68 K/ul (4.8-10.8) H 02/07/23 10:14 RBC 4.12 M/uL (4.70-6.10) L 02/07/23 10:14 Hgb 12.8 g/dl (14.0-18.0) L 02/07/23 10:14 Hct 35.9 % (42.0-52.0) L 02/07/23 10:14 MCV 87.1 fL (80.0-100.0) 02/07/23 10:14 MCH 31.1 pg (25.0-34.0) 02/07/23 10:14 MCHC 35.7 g/dL (32.0-36.0) 02/07/23 10:14 RDW Std Deviation 39.8 fL (36.4-46.3) 02/07/23 10:14 RDW Coeff of Deondre 12.4 % (11.5-14.5) 02/07/23 10:14 Plt Count 186 K/uL (130-400) 02/07/23 10:14 MPV 9.7 fL (9.4-12.4) 02/07/23 10:14 Immature Gran % (Auto) 4.5 % 02/07/23 10:14 Neut % (Auto) 75.7 % 02/07/23 10:14 Lymph % (Auto) 6.2 % 02/07/23 10:14 [place] % (Auto) 11.3 % 02/07/23 10:14 Eos % (Auto) 1.8 % 02/07/23 10:14 Baso % (Auto) 0.5 % 02/07/23 10:14 Neut # (Auto) 10.35 K/uL (1.40-6.50) H 02/07/23 10:14 Lymph # (Auto) 0.85 K/uL (1.20-3.40) L 02/07/23 10:14 [place] # (Auto) 1.54 K/uL (0.11-0.59) H 02/07/23 10:14 Eos # (Auto) 0.25 K/uL (0.00-0.50) 02/07/23 10:14 Baso # (Auto) 0.07 K/uL (0.00-0.20) 02/07/23 10:14 Immature Gran # (Auto) 0.62 K/uL (0.01-0.20) H 02/07/23 10:14 Absolute Nucleated RBC 0.02 K/uL (0.00-0.12) 02/05/23 06:19 Nucleated RBC % (auto) 0.2 % 02/05/23 06:19 Toxic Granulation 2+ 02/07/23 10:14 Polychromasia 1+ 02/07/23 10:14 Sodium 129 mmol/L (136-145) L 02/07/23 10:14 Potassium 3.4 mmol/L (3.5-5.1) L 02/07/23 10:14 Chloride 92 mmol/L (98-107) L 02/07/23 10:14 Carbon Dioxide 30 mmol/L (21-32) 02/07/23 10:14 Anion Gap 7 (3-11) 02/07/23 10:14 BUN 12 mg/dl (6-23) 02/07/23 10:14 Creatinine 0.76 mg/dl (0.6-1.4) 02/07/23 10:14 Est Cr Clr Drug Dosing 137.7 ml/min 02/07/23 10:14 Est GFR ( Amer) 120.7 ml/min 02/07/23 10:14 Est GFR (Non-Af Amer) 104.2 ml/min 02/07/23 10:14 BUN/Creatinine Ratio 15.8 (10-20) 02/07/23 10:14 Glucose 211 mg/dl (70-99(Fasting)) H 02/07/23 10:14 POC Glucose 158 mg/dl (70-99) H 02/07/23 11:13 Estimat Average Glucose 163 mg/dl 02/07/23 10:14 Hemoglobin A1c 7.3 % (4.5-5.6) H 02/07/23 10:14 Lactate 3.7 mmol/L (0.4-2.0) H* 02/02/23 00:18 Calcium 8.2 mg/dl (8.6-10.3) L 02/07/23 10:14 Total Bilirubin 0.7 mg/dl (0.2-1.0) 02/07/23 10:14 Direct Bilirubin 0.2 mg/dl (0-0.2) 02/07/23 10:14 AST 21 U/L (13-39) 02/07/23 10:14 ALT 31 U/L (7-52) 02/07/23 10:14 Alkaline Phosphatase 73 U/L (34-104) 02/07/23 10:14 Troponin I High Sens 2.5 pg/ml (0-20) 02/01/23 08:15 Total Protein 5.7 gm/dl (6.0-8.3) L 02/07/23 10:14 Albumin 2.9 gm/dl (3.4-5.0) L 02/07/23 10:14 Globulin 2.3 gm/dl (2.5-4.0) L 02/02/23 06:53 Albumin/Globulin Ratio 1.7 (0.9-2) 02/02/23 06:53 Lipase 21 U/L (11-82) 02/07/23 10:14 Urine Color Dark Yellow 02/01/23 08:35 Urine Appearance Clear (Clear) 02/01/23 08:35 Urine pH 6.5 (4.5-7.5) 02/01/23 08:35 Ur Specific [place] 1.027 (1.000-1.030) 02/01/23 08:35 Urine Protein Negative (Negative) 02/01/23 08:35 Urine Glucose (UA) 3+ (Negative) H 02/01/23 08:35 Urine Ketones 1+ (Negative) H 02/01/23 08:35 Urine Blood Negative (Negative) 02/01/23 08:35 Urine Nitrite Negative (Negative) 02/01/23 08:35 Urine Bilirubin Negative (Negative) 02/01/23 08:35 Urine Urobilinogen Positive (Negative) H 02/01/23 08:35 Ur Leukocyte Esterase Negative (Negative) 02/01/23 08:35 Adenovirus (PCR) Not Detected (NotDetected) 02/01/23 08:44 B. pertussis DNA (PCR) Not Detected (NotDetected) 02/01/23 08:44 B.parapertussis DNA PCR Not Detected (NotDetected) 02/01/23 08:44 C. pneumoniae DNA (PCR) Not Detected (NotDetected) 02/01/23 08:44 Coronavirus OC43 (PCR) Not Detected (NotDetected) 02/01/23 08:44 Coronavirus HKU1 (PCR) Not Detected (NotDetected) 02/01/23 08:44 Coronavirus 229E (PCR) Not Detected (NotDetected) 02/01/23 08:44 SARS-CoV-2 (PCR) DETECTED (NotDetected) A* 02/01/23 08:44 Coronavirus NL63 (PCR) Not Detected (NotDetected) 02/01/23 08:44 Human Metapneumovir PCR Not Detected (NotDetected) 02/01/23 08:44 Influenza Type A (PCR) Not Detected (NotDetected) 02/01/23 08:44 Influenza Type B (PCR) Not Detected (NotDetected) 02/01/23 08:44 M. pneumoniae (PCR) Not Detected (NotDetected) 02/01/23 08:44 Parainfluenza 1 (PCR) Not Detected (NotDetected) 02/01/23 08:44 Parainfluenza 2 (PCR) Not Detected (NotDetected) 02/01/23 08:44 Parainfluenza 3 (PCR) Not Detected (NotDetected) 02/01/23 08:44 Parainfluenza 4 (PCR) Not Detected (NotDetected) 02/01/23 08:44 RSV (PCR) Not Detected (NotDetected) 02/01/23 08:44 Entero/Rhino (PCR) Not Detected (NotDetected) 02/01/23 08:44 Impressions Abdomen/Pelvis CT 02/01/23 08:[address] WITH IV CONTRAST CT DOSE: 1610.75 mGy.cm HISTORY: Acute epigastric abdominal pain and tenderness epigastric + generalized tenderness TECHNIQUE: Multiaxial CT images of the abdomen and pelvis were performed following the IV administration of 91 cc of Optiray, A dose lowering technique was utilized adhering to the principles of ALARA. COMPARISON STUDY: Lumbar spine MRI 12/20/2012 FINDINGS: Moderate coronary artery calcifications. Median sternotomy. Mild dependent subsegmental bibasilar atelectasis. No free air. Unremarkable spleen and adrenal glands. Cholelithiasis with equivocal gallbladder wall thickening. No biliary duct dilation. Hepatic steatosis without evidence of cirrhosis. Mild to moderate interstitial and peripancreatic edema with homogeneous enhancement of the pancreatic parenchyma. No pancreatic ductal dilation or acute per ipancreatic fluid collection. Small amount of ascites noted within the lesser sac tracking along the duodenum and right anterior pararenal space. There is no hydronephrosis. Symmetric enhancement of the kidneys. Unremarkable prostate. Small fat filled inguinal hernias. Partial distention of the urinary bladder. Atherosclerosis of the aorta without aneurysm. No lymphadenopathy. Mild wall thickening of the duodenum, likely reactive. No bowel obstruction. Colonic diverticulosis. Normal appendix. No acute fracture. Postoperative changes of the lower lumbar spine. IMPRESSION: 1. Findings compatible with acute interstitial edematous pancreatitis. No acute peripancreatic fluid collections or pancreatic biliary ductal dilation. 2. Cholelithiasis with equivocal gallbladder wall thickening. Correlation with right upper quadrant ultrasound recommended. 3. No biliary ductal dilation. 4. Hepatic steatosis. 5. Normal appendix. 6. Colonic diverticulosis. ACT 112: Negative or not required by law. The above report was generated using voice recognition software. It may contain grammatical, syntax or spelling errors. Electronically signed by: Augsuto Romero M.D. 02/01/2023 9:48 AM Liver Ultrasound 02/01/23 09:50 US liver CLINICAL HISTORY: Abdominal pain. Evaluate for cholecystitis/choledocholithiasis. COMPARISON STUDY: CT of the abdomen and pelvis performed earlier today. FINDINGS: Hepatic echogenicity is diffusely increased. No hepatic lesions are identified. Liver is mildly enlarged, measuring 18.5 cm in maximal sagittal dimension. The pancreas is obscured by overlying bowel gas. There is no biliary ductal dilatation. The common bile duct measures 6 mm in caliber. No common bile duct calculi are identified although these may be occult by sonography. Multiple gallstones within the gallbladder present. There is mild gallbladder wall thickening and pericholecystic fluid. Sonographic Nixon sign was reported. IMPRESSION: 1. Cholelithiasis with mild gallbladder wall thickening, pericholecystic fluid and sonographic Nixon sign. By sonography, the findings suggest acute cholecystitis. Nuclear medicine hepatobiliary scan could be obtained for further evaluation if indicated. 2. No biliary ductal dilatation. No common bile duct calculi identified although these may be occult by sonography. 3. Obscured pancreas due to overlying bowel gas. ACT 112: Negative or not required by law. Electronically signed by: Surinder Penny M.D. 02/01/2023 10:52 AM Chest X-Ray 02/01/23 15:17 XR chest 1V portable CLINICAL HISTORY: covid COMPARISON STUDY: Chest radiograph June 19, 2017. FINDINGS: Lung volumes are mildly diminished. There is no pneumothorax or p leural effusion. Linear bilateral densities favor atelectasis. There is no consolidation to suggest pneumonia. There are median sternotomy wires. Size of the heart is normal. Mediastinal contours are unremarkable. IMPRESSION: No acute cardiopulmonary findings. ACT 112: Negative or not required by law. Electronically signed by: Surinder Penny M.D. 02/01/2023 4:13 PM Cholangiopancreatography MRI 02/03/23 13:03 MR MRCP HISTORY: 52 years-old Male acute pancreatitis, r/o choledocholithiasis acute upper abdominal pain COMPARISON: Right upper quadrant ultrasound and CT abdomen and pelvis studies 02/01/2023 TECHNIQUE: MRCP without the use of IV contrast was obtained according to institutional protocol FINDINGS: Partially imaged lower lumbar spinal fusion hardware. Median sternotomy changes with cardiomegaly. Right hemidiaphragmatic elevation. Small pleural effusions with suggestion of bibasilar atelectasis. Interstitial and peripancreatic edema is similar in comparison CT with small amount of ascites within the lesser sac tracking along the pericolic gutters. No acute peripancreatic fluid collections, pancreatic or common bile duct dilation. The common bile duct measures 5 mm. The pancreatic duct is not well visualized. No choledocholithiasis identified. Cholelithiasis with borderline gallbladder wall thickening and trace pericholecystic fluid redemonstrated. Air-filled loops of large and small bowel may represent a reactive ileus. Likely reactive wall thickening of the duodenum. Mild nonspecific bilateral perinephric stranding without hydronephrosis. Mild generalized body wall edema. IMPRESSION: 1. Findings of acute interstitial edematous pancreatitis redemonstrated. No acute peripancreatic fluid collections. 2. No biliary or pancreatic ductal dilation or choledocholithiasis identified. 3. Cholelithiasis with mild gallbladder wall thickening redemonstrated. As previously stated, these findings could be correlated with nuclear medicine hepatobiliary scan in order to exclude acute cholecystitis. 4. Small pleural effusions with small volume of abdominal pelvic ascites. ACT 112: Negative or not required by law. The above report was generated using voice recognition software. It may contain grammatical, syntax or spelling errors. Electronically signed by: Augusto Romero M.D. 02/03/2023 4:34 PM KUB X-Ray 02/06/23 10:38 KUB CLINICAL HISTORY: Abdominal pain. Status post laparoscopic cholecystectomy on February 04, 2023. COMPARISON STUDY: CT of the abdomen and pelvis February 01, 2023 MRCP February 03, 2023. FINDINGS: Postoperative findings within the spine and cholecystectomy clips are incidentally noted. There are median sternotomy wires. Bibasilar opacities favor atelectasis. Possible lucency under the right hemidiaphragm, suboptimally assessed on this supine exam, could reflect a small amount of pneumoperitoneum which is expected in the early postoperative setting. There has been interval development of significant gaseous distention of the colon, particularly the cecum which measures 11.5 cm in maximal dimension. There is mild gaseous distention of small bowel. IMPRESSION: 1. Interval development of gaseous distention of large and small bowel, particularly the cecum which measures 11.5 cm in maximal dimension. Given the cl inical history, this favors a postoperative ileus. Radiographic follow-up is recommended. 2. Suspected small amount of pneumoperitoneum which is expected in the early postoperative setting. ACT 112: Negative or not required by law. Electronically signed by: Surinder Penny M.D. 02/06/2023 10:52 AM Pending Results Patient Have Any Pending Studies at Discharge: No Discharge Instructions Given to Patient (Per Discharging Provider) PLEASE REFER TO YOUR NEW MEDICATION LIST AND FOLLOW INSTRUCTIONS CAREFULLY. YOUR NEW MEDICATIONS INCLUDE: Toradol-as needed for severe pain Ibuprofen, Tylenol-as needed for mild to moderate pain [id number] softener, hold for diarrhea Calcium carbonate-calcium supplement Please make sure to drink plenty of water daily. Stay with soft diet for 3 to 5 days and advance gradually as tolerated. Please isolate for 3 more days to prevent spread of COVID-19 virus PLEASE CALL YOUR PRIMARY CARE PHYSICIAN OR RETURN TO THE ER IF WITH WORSENING OF SYMPTOMS, INCLUDING Abdominal pain, abdominal distention, nausea/vomiting, fevers or chills, Shortness of breath, cough, chest pain, etc. FOLLOW UP WITH PRIMARY CARE PHYSICIAN IN 1 WEEK. FOLLOW-UP WITH GENERAL SURGEON DR. PASHA MURPHY IN 1 WEEK. CONTACT INFORMATION OUTLINED ABOVE. PLEASE CALL HIS OFFICE FOR ANAPPOINTMENT. Total Time Total Time Spent Total Time Spent (In Minutes): >30 minutes
== END 2023-02-07 16:29 | disposition home or self-care (01) | DRG 417 ==
LOC: ED 07:51 → EDINP 15:06 → SUATTDRO 15:06 → 2N 18:07